=== PATIENT | male | born 1940 | race Caucasian/White ===

== ENCOUNTER 2018-03-25 19:20 | Inpatient (IN) ==
[2018-03-25] MEDS ORDERED: Morphine Inj 4 MG/ML Vial IV.PUSH ONE (20:42)
[2018-03-25] MEDS ORDERED: Sod Chloride 0.9% Inj 1,000 ML IV.SIG ONE (20:42)
--- NOTE | 2018-03-25 21:08 | XR ---
EXAM DATE: 03/25/2018 9:04 PM EST AGE/SEX: 77 years / Male INDICATIONS: Chest pain. CLINICAL DATA: This is the patient's initial encounter. Patient reports that signs and symptoms have been present for 1 day and indicates a pain score of 8/10. MEDICAL/SURGICAL HISTORY: None. CABG. COMPARISON: [facility] [place], CHEST SINGLE AP, 02/03/2015. . FINDINGS: Heart size appears mildly enlarged. Previous CABG. Mild basilar atelectasis. No significant effusion. No pneumothorax. CONCLUSION: Postop CABG. Mild basilar atelectasis. Electronically signed by: Marquise Zhang MD Board Certified Radiologist 03/25/2018 9:07 PM EST
--- NOTE | 2018-03-25 21:11 | ED ---
HPI General Chief complaint: Abdominal Pain Stated complaint: Abd Pain Time Seen by Provider: 03/25/18 20:18 History of Present Illness HPI narrative: Mr. Segura is a 77 year old male complaining of a right sided upper and lower abdominal pain that radiates to the right flank "all the way to my spine." The pain has been present for 2 weeks but escalated to a 9.5/10 on the pain scale earlier this evening which brought him to the ED. He describes the pain as a constant "horrendous ache" like he got "hit by a baseball bat". The patient is convinced that it is another episode of diverticulitis. His last episode was 9 months ago and he claims it was also right sided pain. He also complains of constipation [id number] which he took Senecot to tried to alleviate it but it did not help. It gave him a bout of diarrhea two days ago, and he had hard bunny ball stools today that were a very dark brown. He denies any alleviating for aggravating symptoms for the pain. He denies fevers, chills, or vomiting. He has had nausea but has only dry heaved a couple times in the ED. He also complains of burning while urinating for the past two months, sometimes in his rectum as well. He also lacks a steady urinary stream and has had some episodes of urinary incontinence. PMH: 2 Myocardial Infarctions Diverticulitis Bleeding Duodenal Ulcer Thalamic Stroke [place] HTN PSHx: Hernia repair, CABG Medications: Gabapentin: 100 MG BID, 200 MG HS Carbidopa Aspirin 81 MG once daily Allergies: check file Social Hx: 30 pack year history; currently smokes 4-6 cigarettes/day Denies alcohol use Denies recreational drug use Monika Chavez, MS3 Related Data Home Medications Medication Instructions Recorded Confirmed aspirin [Aspirin Low Dose] 81 mg PO DAILY 03/25/18 03/25/18 carbidopa 25 mg PO Q6H 03/25/18 03/25/18 gabapentin 100 mg PO BID 03/25/18 03/25/18 gabapentin 200 mg PO HS 03/25/18 03/25/18 Allergies Allergy/AdvReac Type Severity Reaction Status Date / Time banana Allergy Severe Swelling Verified 03/25/18 19:27 walnut Allergy Severe HIVES Verified 03/25/18 19:27 tizanidine Allergy Intermediate BAD Verified 03/25/18 19:27 REACTION lisinopril Allergy Unknown Dizziness Verified 03/25/18 19:27 losartan Allergy Unknown Dizziness Verified 03/25/18 19:27 simvastatin Allergy Unknown Dizziness Verified 03/25/18 19:27 codeine AdvReac Severe KNOCKS HIM Verified 03/25/18 19:27 OUT RED YEAST RICE Allergy Unknown Itching Uncoded 03/25/18 19:27 [facility] Medical History Medical History Bleeding ulcer (Acute) Diverticulitis (Acute) Myocardial infarction (Acute) Stroke (Acute) Surgical History Surgical History Hx of CABG (Acute) Hx of hernia repair (Acute) Social History Social History Substance History: No History of Abuse Smoking Status: Current every day smoker Tobacco Type: Cigarettes How Often Do You Have a Drink Containing Alcohol: Never Recent Travel in [facility] within the Last 8 Weeks: No Recent Out of Country Travel within the Last 8 Weeks: No Immunization History Tetanus Immunization: Unsure Exam HENMT Head: normocephalic and atraumatic Nose: no nasal discharge and no epistaxis Mouth: moist mucous membranes Eyes Sclera: normal sclerae Pupils: PERRL Neck Neck: trachea midline and no JVD Resp Effort & Inspection: no use of accessory muscles Auscultation: clear to auscultation bilaterally Cardio Rate: regular rate Rhythm: regular rhythm Heart Sounds: no murmurs GI Inspection: distended Palpation: soft, no hepatosplenomegaly, no guarding, not rigid and tender in the epigastrum, in the RLQ, in the RUQ and Luna's sign positive; not in the LLQ, not in the LUQ and not periumbilically Rectal Exam: visual inspection normal, heme negative stool, prostate abnormal ( Firm on palpation. No focal mass palpated.) enlarged and tender and tenderness (On palpation of her his prostate) Back/Spine/Pelvis Back: CVA tenderness (on the right) Skin General: dry skin (warm) Neuro General: alert and awake Cranial Nerves: other Speech: speech normal Motor: no movement abnormalities noted Extrem General: normal to inspection, no clubbing, no cyanosis and no edema Psych Mood: congruent mood Affect: normal affect Judgment: judgment good Course Initial Documented Vital Signs Temperature 98.0 F 03/25/18 19:27 Pulse Rate 75 03/25/18 19:27 Respiratory Rate 16 03/25/18 19:27 Blood Pressure 220/101 H 03/25/18 19:27 Pulse Oximetry 97 03/25/18 19:27 Last Documented Vital Signs Temperature 98.0 F 03/25/18 19:27 Pulse Rate 76 03/25/18 23:00 Respiratory Rate 16 03/25/18 23:00 Blood Pressure 207/100 H 03/25/18 23:00 Pulse Oximetry 97 03/25/18 23:00 Medical Decision Making MDM Narrative Medical decision making narrative: I, Dr. Petersen, have reviewed the medical student's documentation, and I am in agreement, met with the patient face to face, made the diagnosis, and the medical decision making was done by me. The patient was initially evaluated by MS Monika III. Please see their complete history and physical. *My assessment and Findings: The patient presents with a history of abdominal pain that he reports is been ongoing for the last 2 weeks, however much worse today. He reports having problems with intermittent constipation, however he did move his bowels today and small amount. He reports that his stool is hard and also darkening color. He reports that he does have a history of peptic ulcer disease many years ago with a GI bleed. The patient reports that the pain is in the right side of his abdomen, right upper and right lower quadrant. He reports the pain is similar to when he had diverticulitis in the past approximately 8-9 months ago. The patient on review of systems also reports having dysuria with urinary frequency and urgency with urge incontinence that is been ongoing and intermittent for the last month. The patient reports a prior history of elevated PSA in the 30s. The patient reports that he refused to have a biopsy. During the course of the patient's emergency department visit, the patient's history, examination, and differential diagnosis were reviewed with the patient. The patient was placed on a car mover with oximetry and frequent blood pressure monitoring. The patient had IV access obtained and blood work sent for analysis. The patient was initially provided normal saline 1 L IV fluid bolus, morphine 4 mg IV for pain, Zofran 4 mg IV for nausea. The patient continued to have severe pain and was given hydromorphone 0.5 mg IV. The patient's diagnostic studies were reviewed and remarkable for A chest x-ray shows postop CABG, mild basilar atelectasis, PT PTT within normal limits, chemistries remarkable for chloride of 112, BUN 41, creatinine 3.37 in a patient with a history of his last creatinine in 2014 being normal at 1.06, GFR of 18 T8, lipase within normal limits, lactic acid 0.8. CT scan of the abdomen and pelvis showed moderate hydronephrosis and hydroureter bilaterally, fluid adjacent to the right kidney and right ureter, diverticulosis without diverticulitis, mild circumferential wall thickening of the urinary bladder. Due to the patient's acute kidney injury and hydronephrosis, a Andrew catheter was replaced to gravity while IV fluids are administered to evaluate urine output. The patient's case including history, pertinent physical examination findings, and laboratory studies were discussed with Dr. Mooney. It was agreed that the patient would be admitted to the [facility] hospitalist service. The patient's results were discussed with the patient, including the plan of care. I explained that further testing and/ or monitoring is indicated based on the patient's history, examination, and/ or laboratory findings. Therefore, I recommended admission for additional evaluation and treatment under the care of the [facility] hospitalist service. Medical Screen Exam Complete: Yes Emergency Medical Condition: Yes Differential Diagnosis Differential Diagnosis: Cystitis, versus pyelonephritis, versus kidney stone, versus prostatitis, versus diverticulitis, versus appendicitis, versus acute cholecystitis Medical Records Medical records reviewed: Yes I reviewed the patient's medical records. Lab Data Lab results reviewed: Yes I reviewed the patient's lab results. Result diagrams: 03/25/18 22:48 03/25/18 20:30 Lab Results 03/25/18 03/25/18 03/25/18 Range/Units 20:30 20:30 20:30 PT 10.5 (9.8-11.6) sec INR 1.0 Ratio APTT 28.5 (23.4-31.7) sec Sodium 144 (136-145) meq/L Potassium 4.6 (3.5-5.1) meq/L Chloride 112 H (98-107) meq/L Carbon Dioxide 24.9 (21.0-32.0) meq/L Anion Gap 7 (5-15) meq/L BUN 41 H (7-18) mg/dL Creatinine 3.37 H (0.60-1.30) mg/dL Estimated GFR 18 L (>89) mL/min Random Glucose 95 (74-106) mg/dL Lactic Acid 0.8 (0.4-2.0) mmol/L Calcium 8.7 (8.5-10.1) mg/dL Magnesium 2.0 (1.5-2.5) mg/dL Total Bilirubin 0.4 (0.2-1.0) mg/dL AST 22 (15-37) U/L ALT 8 L (12-78) U/L Alkaline Phosphatase 83 (45-117) U/L Total Protein 8.0 (6.4-8.2) g/dL Albumin 4.0 (3.4-5.0) g/dL Lipase 131 (73-393) U/L Urine Color (Yellw/Straw) Urine Clarity (Clear) Urine pH (5.0-8.5) Ur Specific Loma (1.002-1.035) Urine Protein (Neg-Trace) mg/dL Urine Glucose (UA) (Negative) mg/dL Urine Ketones (Negative) mg/dL Urine Occult Blood (Negative) Urine Nitrate (Negative) Urine Bilirubin (Negative) Urine Urobilinogen (Less than 2) mg/dL Ur Leukocyte Esterase (Negative) Urine RBC (0-3) /hpf Urine WBC (0-5) /hpf Micro UA Comment Ur Microscopic Review Urine Culture Comments 03/25/18 Range/Units 21:00 PT (9.8-11.6) sec INR Ratio APTT (23.4-31.7) sec Sodium (136-145) meq/L Potassium (3.5-5.1) meq/L Chloride (98-107) meq/L Carbon Dioxide (21.0-32.0) meq/L Anion Gap (5-15) meq/L BUN (7-18) mg/dL Creatinine (0.60-1.30) mg/dL Estimated GFR (>89) mL/min Random Glucose (74-106) mg/dL Lactic Acid (0.4-2.0) mmol/L Calcium (8.5-10.1) mg/dL Magnesium (1.5-2.5) mg/dL Total Bilirubin (0.2-1.0) mg/dL AST (15-37) U/L ALT (12-78) U/L Alkaline Phosphatase (45-117) U/L Total Protein (6.4-8.2) g/dL Albumin (3.4-5.0) g/dL Lipase (73-393) U/L Urine Color Straw (Yellw/Straw) Urine Clarity Clear (Clear) Urine pH 6.0 (5.0-8.5) Ur Specific Loma 1.008 (1.002-1.035) Urine Protein Negative (Neg-Trace) mg/dL Urine Glucose (UA) Negative (Negative) mg/dL Urine Ketones Negative (Negative) mg/dL Urine Occult Blood Small H (Negative) Urine Nitrate Negative (Negative) Urine Bilirubin Negative (Negative) Urine Urobilinogen Less than 2 (Less than 2) mg/dL Ur Leukocyte Esterase Negative (Negative) Urine RBC Less than 1 (0-3) /hpf Urine WBC 1 (0-5) /hpf Micro UA Comment Culture not ind Ur Microscopic Review Not Reportable Urine Culture Comments Culture not ind Imaging Data Radiologist's impression: Abdomen/Pelvis CT 03/25/18 20:42 CONCLUSION: 1. Moderate hydronephrosis and hydroureter bilaterally. 2. There is fluid adjacent to the right kidney and right ureter. 3. Diverticulosis without diverticulitis. 4. Mild circumferential wall thickening urinary bladder. Chest X-Ray 03/25/18 20:42 CONCLUSION: Postop CABG. Mild basilar atelectasis. ECG Data Attestation: I personally reviewed and interpreted this ECG as follows: Interpretation: The patient had an EKG done on arrival. The patient's EKG reveals a sinus rhythm with occasional ectopic premature complexes, heart rate of 67, QRS duration is 93 ms, QTC [address] segment elevation, T waves are inverted in lead III. Discharge Plan Discharge Disposition Patient Disposition: ED Admit(ED Internal Use Only) Discharge Order Discharge Orders: ED Use Only Admit Order (Routine); Ordered 03/25/18 Ordered By: Isaura Peetrsen Discharge Details Diagnosis: Acute kidney injury, Bilateral hydronephrosis Physicians Team ED Provider: Isaura Petersen Primary Care Provider: UNKNOWN, Rxs /Orders / Referrals /Forms Prescriptions: No Action carbidopa 25 mg Tablet 25 mg PO Q6H RF: 0 gabapentin 100 mg Capsule 200 mg PO HS RF: 0 gabapentin 100 mg Capsule 100 mg PO BID RF: 0 aspirin [Aspirin Low Dose] 81 mg Tablet,Delayed Release (Dr/Ec) 81 mg PO DAILY RF: 0 Discharge Interventions Interventions: Vital Signs Last Done: 03/25/18 23:00 Status ED Status: With Doctor
[2018-03-25 21:33] LABS: Bilirubin,Urine Negative (Negative); Clarity,Urine Clear (Clear); Color,Urine Straw (Yellw/Straw); Glucose,Urine (UA) Negative (Negative); Leukocyte Esterase,Urine Negative (Negative); Nitrite,Urine Negative (Negative); Specific Gravity,Urine 1.008 (1.002-1.035)
[2018-03-25 21:36] LABS: Activated Partial Thrombo Time 28.5 sec (23.4-31.7); Prothrombin Time 10.5 sec (9.8-11.6)
[2018-03-25] MEDS ORDERED: HYDROmorphone PF Inj 0.5 MG/0.5 ML Syringe IV.PUSH ONE (21:42)
[2018-03-25 21:53] LABS: Alanine Aminotransferase 8 U/L (12-78)
[2018-03-25 21:56] LABS: Alkaline Phosphatase 83 U/L (45-117); Anion Gap 7 meq/L (5-15); Aspartate Aminotransferase 22 U/L (15-37); Blood Urea Nitrogen 41 mg/dL (7-18); Calcium 8.7 mg/dL (8.5-10.1); Carbon Dioxide 24.9 meq/L (21.0-32.0); Chloride 112 meq/L (98-107); Glomerular Filtration Rate 18 mL/min (>89); Glucose,Random 95 mg/dL (74-106); Lipase 131 U/L (73-393); Sodium 144 meq/L (136-145)
[2018-03-25 21:59] LABS: Potassium 4.6 meq/L (3.5-5.1)
--- NOTE | 2018-03-25 22:23 | CT ---
EXAM DATE: 03/25/2018 10:15 PM EST AGE/SEX: 77 years / Male INDICATIONS: Abdominal pain and back pain that has steadily gotten worse for 10 days. CLINICAL DATA: This is the patient's initial encounter. Patient reports that signs and symptoms have been present for 2 weeks and indicates a pain score of 9/10. MEDICAL/SURGICAL HISTORY: Diverticulitis. Cardiovascular disease. CABG. Hernia repair RADIATION DOSE: 6.64 CTDI (mGy) COMPARISON: [facility], CT ABDOMEN AND PELVIS W/ CONTRAST, 01/29/2017. . TECHNIQUE: Multiple contiguous axial images were obtained through the abdomen. Images were obtained using multiple row detector helical technique. Using automated exposure control and adjustment of the mA and/or kV according to patient size, radiation dose was kept as low as reasonably achievable to o btain optimal diagnostic quality images. DICOM format image data is available electronically for rev iew and comparison. FINDINGS: Lower Lungs: The visualized lower lungs are clear. Liver: The liver has a homogeneous density without space-occupying lesion. There is no dilation of th e biliary tree. Spleen: Homogeneous density without enlargement. Pancreas: Unremarkable without mass or calcification. Kidneys: Moderate bilateral hydronephrosis and hydroureter. Perinephric stranding bilaterally greate r on the right. There is fluid adjacent to the right kidney and right proximal ureter. Adrenal Glands: Unremarkable. Aorta: Atherosclerotic changes without aneurysmal dilation. Bowel/Mesentery: Extensive diverticulosis without diverticulitis. Abdominal Wall: Intact. Retroperitoneum: No evidence of adenopathy in the retrocrural, para-aortic, or deep pelvic regions. Bladder: Mild wall thickening of the urinary bladder. Reproductive Organs: No abnormal masses or calcifications seen. Mildly prominent prostate gland. Inguinal: The inguinal region is unremarkable without evidence of adenopathy. Bony Structures: Levoscoliosis and degenerative changes lumbar spine. CONCLUSION: 1. Moderate hydronephrosis and hydroureter bilaterally. 2. There is fluid adjacent to the right kidney and right ureter. 3. Diverticulosis without diverticulitis. 4. Mild circumferential wall thickening urinary bladder. Electronically signed by: Carlos Jay MD Board Certified Radiologist 03/25/2018 10:22 PM EST
[2018-03-25 23:13] LABS: Baso # (Auto) 0.1 th/mm3 (0.0-0.2); Baso % (Auto) 0.8 % (0.0-2.0); Eos % (Auto) 0.4 % (0.0-4.0); Hematocrit 36.3 % (39.0-51.0); Hemoglobin 12.4 gm/dL (13.0-17.0); Lymph # (Auto) 0.7 th/mm3 (1.0-4.8); Lymph % (Auto) 6.9 % (9.0-44.0); Mean Corpuscular Hemoglobin 33.2 pg (27.0-34.0); Mean Corpuscular Volume 97.5 fL (80.0-100.0); Mean Platelet Volume 8.5 fL (7.0-11.0); Mono # (Auto) 0.3 th/mm3 (0.0-0.9); Mono % (Auto) 3.5 % (0.0-8.0); Neut # (Auto) 8.4 th/mm3 (1.8-7.7); Neut % (Auto) 88.4 % (16.0-70.0); Red Blood Count 3.72 mil/mm3 (4.50-5.90); Red Cell Distribution Width 12.9 % (11.6-17.2)
[2018-03-25 23:41] LABS: Platelet Count 107 th/mm3 (150-450); White Blood Count 8.6 th/mm3 (4.0-11.0)
[2018-03-25 23:46] LABS: Acanthocytes Occ; Ovalocytes 1+
[2018-03-25 23:47] LABS: Platelet Morphology Clumped (Normal)
[2018-03-26] MEDS: Morphine Inj 4 MG/ML Vial IV.PUSH PRN ×2 (00:55→04:30)
[2018-03-26] MEDS: Sod Chloride 0.9% Inj 1,000 ML IV.CONT SCH ×6 (00:55→22:39)
--- NOTE | 2018-03-26 09:21 | P.HPIM ---
History of Present Illness Primary Care Physician: UNKNOWN History of Present Illness: Pt is 77 yo with hx cad/cabg x 4, hx right thalamic cva, duodenal ulcer, diverticulitis, who presented with right lower abdomen and flank pain with dysuria. Pt said he had less urine output and burning with urination x 2 weeks. Then progressed to right lower abdomen and right flank pain worsening yesterday. no vomiting or fever. No hx of uti or nephrolithiasis. Pt gives hx of elevated psa but details were limited. On outpt records we found a psa of 35 in August of 2013. His cr here was over 3 and previous in 02/02 was nml. He had bilateral hydro on CT and fluid adjacent to right kidney with perinephric stranding. Admitted for evaluation. No reported urine output with bhakta but pt c/o pain and it was removed. PMH: hx right thalamic cva with persistent mild weakness of LUE/LLE and use of cane for balance. cad. emergent 4v cabg divertiulosis and diverticulitis. peripheral neuroapathy. duodenal ulcer elevated psa hernia repair SH: hx tobacco use x 67 yrs. still smokes 6cigs/day. no etoh. [facility] Diagnosis (1) Acute kidney injury: (2) Bilateral hydronephrosis: Inpatient Certification Inpatient Certification: I certify that the inpatient services were ordered in accordance with Medicare regulations governing the order. This includes certification that hospital inpatient services are reasonable and necessary and in the case of services not specified as inpatient-only under 42 CFR 419.22(n), that they are appropriately provided as inpatient services in accordance to with the 2-midnight benchmark under 43 CFR 412.3(e) Medications and Allergies Allergies Allergy/AdvReac Type Severity Reaction Status Date / Time banana Allergy Severe Swelling Verified 03/25/18 19:27 walnut Allergy Severe HIVES Verified 03/25/18 19:27 tizanidine Allergy Intermediate BAD Verified 03/25/18 19:27 REACTION lisinopril Allergy Unknown Dizziness Verified 03/25/18 19:27 losartan Allergy Unknown Dizziness Verified 03/25/18 19:27 simvastatin Allergy Unknown Dizziness Verified 03/25/18 19:27 codeine AdvReac Severe KNOCKS HIM Verified 03/25/18 19:27 OUT RED YEAST RICE Allergy Unknown Itching Uncoded 03/25/18 19:27 Home Medications Medication Instructions Recorded Confirmed Type aspirin [Aspirin Low Dose] 81 mg PO DAILY 03/25/18 03/25/18 History carbidopa 25 mg PO Q6H 03/25/18 03/25/18 History gabapentin 100 mg PO BID 03/25/18 03/25/18 History gabapentin 200 mg PO HS 03/25/18 03/25/18 History Active Medications: Active Medications Hydrocodone Bitart/Acetaminophen (Gary 5/325) 2 tab PO Q6H PRN PRN Reason: PAIN SCALE 1 TO 5 Last Admin: 03/26/18 08:51 Dose: 2 tab Sodium Chloride (Ns Inj) 1,000 mls @ 100 mls/hr IV.CONT .Q10H [facility] Last Admin: 03/26/18 00:55 Dose: 100 mls/hr Sodium Chloride (Ns Inj) 1,000 mls @ 100 mls/hr IV.CONT .Q10H [facility] Last Admin: 03/26/18 01:04 Dose: Not Given Morphine Sulfate (Morphine Inj) 2 mg IV.PUSH Q4H PRN PRN Reason: PAIN SCALE 6 TO 10 Last Admin: 03/26/18 04:30 Dose: 2 mg Sodium Chloride (Ns Flush) 2 ml IV.FLUSH PRN PRN PRN Reason: FLUSH AFTER USING IV ACCESS Physical Exam Vital signs: Last Vital Signs Temp 98.6 F 03/26/18 04:00 Pulse 76 03/26/18 04:00 Resp 17 03/26/18 04:00 BP 172/87 H 03/26/18 04:00 Pulse Ox 93 L 03/26/18 04:00 Narrative: nad heart reg. systolic murmer LLSB lung cta abd right lower quad tenderness. bs. nd ext no edema Results Labs CBC & Chem 7: 03/25/18 22:48 03/25/18 20:30 Caprini VTE Risk Assessment Caprini VTE Risk Assessment: Moderate/High Risk (score >= 2) Caprini Risk Assessment Model: Point Value = 1 Point Value = 2 Point Value = 3 Point Value = 5 Age 41-60 Minor surgery BMI > 25 kg/m2 Swollen legs Varicose veins or History of unexplained or recurrent spontaneous Oral contraceptives or hormone replacement Sepsis (< 1 month) Serious lung disease, including pneumonia (< 1 month) Abnormal pulmonary function Acute myocardial infarction Congestive heart failure (< 1 month) History of inflammatory bowel disease Medical patient at bed rest Age 61-74 Arthroscopic surgery Major open surgery (> 45 min) Laparoscopic surgery (> 45 min) Malignancy Confined to bed (> 72 hours) Immobilizing plaster cast Central venous access Age >= 75 History of VTE Family history of VTE Factor V Leiden Prothrombin [id number] Lupus anticoagulant Anticardiolipin antibodies Elevated serum homocysteine Heparin-induced thrombocytopenia Other congenital or acquired thrombophilia Stroke (< 1 month) Elective arthroplasty Hip, pelvis, or leg fracture Acute spinal cord injury (< 1 month) Prophylaxis Regimen: Total Risk Factor Score Risk Level Prophylaxis Regimen 0-1 Low Early ambulation 2 Moderate Order ONE of the following: *Sequential Compression Device (SCD) *Heparin 5000 units SQ BID 3-4 Higher Order ONE of the following medications: *Heparin 5000 units SQ TID *Enoxaparin/Lovenox 40 mg SQ daily (WT < 150 kg, CrCl > 30 mL/min) *Enoxaparin/Lovenox 30 mg SQ daily (WT < 150 kg, CrCl > 10-29 mL/min) *Enoxaparin/Lovenox 30 mg SQ BID (WT < 150 kg, CrCl > 30 mL/min) AND/OR *Sequential Compression Device (SCD) 5 or more Highest Order ONE of the following medications: *Heparin 5000 units SQ TID (Preferred with Epidurals) *Enoxaparin/Lovenox 40 mg SQ daily (WT < 150 kg, CrCl > 30 mL/min) *Enoxaparin/Lovenox 30 mg SQ daily (WT < 150 kg, CrCl > 10-29 mL/min) *Enoxaparin/Lovenox 30 mg SQ BID (WT < 150 kg, CrCl > 30 mL/min) AND *Sequential Compression Device (SCD) Assessment and Plan Assessment (1) Acute kidney injury: Code(s): N17.9 - Acute kidney failure, unspecified Status: Acute (2) Bilateral hydronephrosis: Code(s): N13.30 - Unspecified hydronephrosis Status: Acute Plan 1. DAINA with bilateral hydro and severe right abdomen and flank pain. concern for perinephric stranding and fluid collection adjacent to right kidney. Seen by urology and prostate is "rock hard". Concern for prostate ca and likely some obstruction. 2. 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 cad. cabg x 4 4. hx duoadenal ulcer and diverticulosis resume home meds. prn pain control IVF dvt prophylaxis discussed with Dr Griffith. He will place a bhakta. monitor urine output and cr/gfr. pt getting ivf. check psa H&P: Quality VTE Deep Vein Thrombosis/Pulmonary Embolism Present on Admission: No
[2018-03-26] MEDS ORDERED: Lidocaine 2% Jelly 5 ML Syringe OTHER ONE (09:30)
--- NOTE | 2018-03-26 10:00 | MB ---
cc: NachoLoco Kebede DO DATE: 03/26/2018 HISTORY OF PRESENT ILLNESS: Mr. Segura is a pleasant 77-year-old male who presented with abdominal pain yesterday and has had difficulty urinating over the last few weeks. He denies any nausea or vomiting, and he reports no fevers. The patient does admit to having an elevated PSA of 35 back in 2013, under the care of Dr. Byers. At that time, he refused a biopsy. He presently denies any bone pain and has not had a prostate biopsy in the past. Initially, a Andrew catheter was put in, but it was not draining and then was taken out. I was able to place a 16-Azerbaijani coude at the bedside with clear urine draining at the present time. His CT scan performed on admission did show evidence of bilateral hydroureteronephrosis with some perinephric stranding around the right kidney and a full bladder with a thickened bladder wall. For allergies and medications Please refer to the chart. PAST MEDICAL HISTORY: Includes right thalamic CVA, coronary artery disease, diverticulitis, peripheral neuropathy, duodenal ulcer, hiatal hernia, and elevated PSA. PAST SURGICAL HISTORY: Hernia repair in the past, CABG x 4. SOCIAL HISTORY: Presently a smoker of 6 cigarettes a day. Denies alcohol or drug use. FAMILY HISTORY: No family history of prostate cancer was noted. REVIEW OF SYSTEMS: No abdominal pain, dysuria. Difficulty with urination, nocturia 3-4 times. Denies chest pain, shortness of breath. Denies diarrhea or constipation. Denies bleeding disorders, psychiatric problems. Remaining review of systems reviewed and were negative. PHYSICAL EXAMINATION: VITAL SIGNS: Today, temperature 99.2, heart rate 66, respiratory rate 20, 137/79 is his blood pressure, 93% on room air. GENERAL: He is a thin 77-year-old male in no acute distress. HEENT: Normocephalic, atraumatic. Pupils equal, round, regular, and reactive to light. Extraocular movements intact. NECK: Supple. HEART: Regular rate and rhythm. LUNGS: Clear. ABDOMEN: Soft. There is some right-sided abdominal tenderness. No rebound. Some guarding is noted. GENITOURINARY: Normal phallus. Testes are descended. Prostate is rock hard, approximately 60 g, nodular. EXTREMITIES: Show no cyanosis, clubbing, or edema. NEUROLOGIC: Cranial nerves 2 through 12 are intact. DIAGNOSTIC DATA: White count 8.6, hemoglobin 12.4, hematocrit 36.3, platelet count of 107. Sodium 144, potassium 4.6, chloride 112, CO2 is 24.9, BUN of 41, creatinine 3.37, glucose of 95. PT is 10.5. INR 1.0, PTT is 28.5. Urinalysis shows small occult blood, nitrites negative, leukocyte esterase is negative, 1 white cell. Again, imaging studies, bilateral hydronephrosis with right-sided perinephric stranding is noted. ASSESSMENT AND PLAN: 1. A 77-year-old male with history of an elevated PSA and rock hard prostate on exam with bilateral hydronephrosis and right-sided perinephric stranding. The patient probably has prostate cancer and at some point in the future will need a prostate needle biopsy. 2. Acute renal failure. Maintain Andrew catheter for now and monitor urine output. Avoid nephrotoxins. Check PSA. We will follow with you. Thank you for the consult. DO CHRISTIE Haywood/juan luis , 09:38 AM , 09:47 AM
--- NOTE | 2018-03-26 15:42 | ECG ---
Date Performed: 03/25/2018 Time Performed: 23:01:20 PTAGE: 77 years EKG: Sinus rhythm WITH OCCASIONAL ECTOPIC PREMATURE COMPLEXES POSSIBLE LEFT ATRIAL ENLARGEMENT INFERIOR MYOCARDIAL INF ARCTION Compared to previous tracing, there are now occasional PVCs present. Prior inferior KS is not ed ABNORMAL ECG PREVIOUS TRACING : 02/03/2015 19.52 DOCTOR: Minerva Hunt Interpretating Date/Time 03/26/2018 15:41:06
[2018-03-26] MEDS: Gabapentin 100 MG Capsule PO SCH ×2 (16:03→22:38)
[2018-03-27] MEDS: Sod Chloride 0.9% Inj 1,000 ML IV.CONT SCH ×3 (05:27→10:01)
[2018-03-27 05:37] LABS: Free PSA/PSA Ratio 0 ratio
[2018-03-27] MEDS: Gabapentin 100 MG Capsule PO SCH ×2 (07:30→20:48)
[2018-03-27 08:49] LABS: Calcium 8.1 mg/dL (8.5-10.1); Carbon Dioxide 18.2 meq/L (21.0-32.0); Potassium 5.3 meq/L (3.5-5.1)
--- NOTE | 2018-03-27 08:59 | P.PNIM ---
Subjective Interval history: pt w/out pain today. Physical Exam Vital signs: Last Vital Signs Temp 98.2 F 03/27/18 08:00 Pulse 84 03/27/18 08:00 Resp 18 03/27/18 08:00 BP 169/83 H 03/27/18 08:00 Pulse Ox 90 L 03/27/18 08:00 Narrative: nad heart reg. systolic murmer LLSB lung cta abd right lower quad tenderness better.. bs. nd ext no edema Results Labs CBC & Chem 7: 03/25/18 22:48 03/27/18 08:03 Assessment and Plan Assessment (1) Acute kidney injury: Code(s): N17.9 - Acute kidney failure, unspecified Status: Acute (2) Bilateral hydronephrosis: Code(s): N13.30 - Unspecified hydronephrosis Status: Acute Plan 1. DAINA with bilateral hydro and severe right abdomen and flank pain. concern for perinephric stranding and fluid collection adjacent to right kidney. Seen by urology and prostate is "rock hard". Concern for prostate ca and likely some obstruction. psa 159 only 100cc urine overnight after bhakta placed worsening renal function overnight and cr over 6 2. 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 cad. cabg x 4 4. hx duoadenal ulcer and diverticulosis resume home meds. prn pain control IVF dvt prophylaxis discussed with Dr Griffith. He is checking bhakta to assure not obstructed...If daina not felt to be from obstruction then I will consult nephrology. Progress Note: Quality VTE Deep Vein Thrombosis/Pulmonary Embolism Present on Admission: No
[2018-03-27] MEDS ORDERED: Sod Chloride 0.9% Inj 1,000 ML OTHER PRN ×2 (10:21)
[2018-03-27] MEDS ORDERED: Sod Chloride 0.9% Inj 1,000 ML IV.CONT PRN (10:21)
[2018-03-27] MEDS ORDERED: Acetaminophen 325 MG Tablet PO PRN (10:21)
[2018-03-27] MEDS ORDERED: Heparin 10,000 UNITS/10 ML Vial (for IV use) OTHER PRN (10:21)
[2018-03-27] MEDS ORDERED: Albumin Human 25% Inj 100 ML IV.SIG PRN (10:21)
[2018-03-27] MEDS ORDERED: Gelatin 12 MM/7 MM Topical Foam TOPICAL PRN (10:21)
--- NOTE | 2018-03-27 10:22 | P.PNURO ---
Subjective Patient symptoms today: Pt seen and examined. Minimal u/o last night. Creatinine up to 6.7. Objective Vital Signs: Vital Signs 03/26/18 11:45 03/26/18 12:03 03/26/18 16:15 Temperature 98.2 F 99.1 F Pulse Rate 79 71 Respiratory Rate 20 18 20 Blood Pressure 160/77 H 179/93 H Pulse Oximetry 91 L 91 L 03/26/18 18:36 03/26/18 20:00 03/27/18 00:00 Temperature 97.9 F 97.5 F L Pulse Rate 66 84 Respiratory Rate 18 18 16 Blood Pressure 160/72 H 149/78 H Pulse Oximetry 96 95 03/27/18 04:00 03/27/18 08:00 Temperature 97.9 F 98.2 F Pulse Rate 74 84 Respiratory Rate 18 18 Blood Pressure 172/81 H 169/83 H Pulse Oximetry 93 L 90 L Intake & Output 03/26/18 03/27/18 03/27/18 18:59 06:59 18:59 Intake Total 1000 / 1000 1000 / 1000 1000 / 1000 Output Total 50 / 50 100 / 100 Balance 950 / 950 900 / 900 1000 / 1000 Weight 50.9 kg Intake: IV 1000 / 1000 1000 / 1000 1000 / 1000 NS Inj 1,000 ML @ 100 mls/hr IV 1000 / 1000 1000 / 1000 1000 / 1000 .CONT .Q10H [facility] Rx#:[id number] Output: Urine 100 / 100 Urine Amount (Catheter) 50 / 50 Indwelling Urethral Catheter 50 / 50 Other: Date of Last Bowel Movement 03/25/18 Result Diagrams: 03/25/18 22:48 03/27/18 08:03 Medications and IVs: Active Medications Generic Name Dose Route Start Last Admin Trade Name Freq PRN Reason Stop Dose Admin Hydrocodone Bitart/Acetaminophen 2 tab 03/25/18 23:54 03/27/18 09:00 [place] 5/325 PO 2 tab Q6H PRN Administration PAIN SCALE 1 TO 5 Aspirin 81 mg 03/27/18 09:00 03/27/18 09:00 Aspirin Chew PO 81 mg DAILY [facility] Administration Carbidopa/Levodopa 1 tab 03/26/18 13:00 03/27/18 08:00 Sinemet 25/100 Mg PO 1 tab 08,13,21 [facility] Administration Clonidine HCl 0.1 mg 03/26/18 21:37 03/27/18 06:36 Catapres PO 0.1 mg Q6H PRN Administration SBP>160 OR DBP>90 Gabapentin 100 mg 03/26/18 13:00 03/27/18 07:30 Neurontin PO 100 mg BID@08,13 [facility] Administration Gabapentin 200 mg 03/26/18 21:00 03/26/18 22:38 Neurontin PO 200 mg HS [facility] Administration Sodium Bicarbonate 75 meq/ 1,075 mls @ 42 mls/hr 03/27/18 10:15 Dextrose/Sodium Chloride IV.CONT .Q24H [facility] Morphine Sulfate 2 mg 03/25/18 23:54 03/26/18 04:30 Morphine Inj IV.PUSH 2 mg Q4H PRN Administration PAIN SCALE 6 TO 10 Sodium Chloride 2 ml 03/25/18 20:42 Ns Flush IV.FLUSH PRN PRN FLUSH AFTER USING IV ACCESS Objective Remarks: Abd:soft,nt,nd Bladder not distended Assessment and Plan - Plan 77 y.o male admitted with abdominal pain; ARF and elevated PSA Maintain bhakta drainage for now CT scan later today Nephrology consulted.
--- NOTE | 2018-03-27 10:46 | P.CONNP ---
<Rena Riggs - Last Filed: 03/27/18 16:36> History of Present Illness Primary Care Provider: UNKNOWN History of Present Illness: Patient is 77 year old male who presented to the ED on 03/25/18 with right flank pain that radiated to the back and dysuria with a decrease in urine output over the past few weeks. Patient has medical history of MT, CVA w/left sided weakness, CABG, duodenal ulcer, diverticulitis. CT scan of abdomen 03/25 showed bilateral hydronephrosis and hydroureter. Patient had bhakta placed with little to no urine output. 225 ml urine was documented 03/26 , Creatinine was 3.37 on admission and now 6.77. PSA elevated at 159. Patient reports intense pain on abdominal palpation. Patient is a current tobacco smoker, denies drug and alcohol use. Review of Systems All other systems reviewed negative except as stated in HPI PMFSH - History History Provided By: Patient, Family Member - Medical History Medical History: Medical History (Last Reviewed 03/27/18 @ 08:10 by Declan Gomez) Bleeding ulcer Diverticulitis Myocardial infarction Stroke - Surgical History Surgical History: Surgical History (Last Reviewed 03/27/18 @ 08:10 by Declan Gomez) Hx of CABG Hx of hernia repair - Tobacco History Second Hand Smoke Exposure: Yes Tobacco Use In Past 30 Days: Yes Smoking Status: Current every day smoker Tobacco Type: Cigarettes - Alcohol History How Often Do You Have a Drink Containing Alcohol: Never - Substance Use History Substance History: No History of Abuse - Travel History Recent Travel in the [place] Within the Last 8 Weeks: No Recent Travel Out of the Country Within the Last 8 Weeks: No - Immunization History Tetanus Immunization: Unsure Medications and Allergies Allergies Allergy/AdvReac Type Severity Reaction Status Date / Time banana Allergy Severe Swelling Verified 03/25/18 19:27 walnut Allergy Severe HIVES Verified 03/25/18 19:27 tizanidine Allergy Intermediate BAD Verified 03/25/18 19:27 REACTION lisinopril Allergy Unknown Dizziness Verified 03/25/18 19:27 losartan Allergy Unknown Dizziness Verified 03/25/18 19:27 simvastatin Allergy Unknown Dizziness Verified 03/25/18 19:27 codeine AdvReac Severe KNOCKS HIM Verified 03/25/18 19:27 OUT RED YEAST RICE Allergy Unknown Itching Uncoded 03/25/18 19:27 Home Medications Medication Instructions Recorded Confirmed Type aspirin [Aspirin Low Dose] 81 mg PO DAILY 03/25/18 03/25/18 History carbidopa 25 mg PO Q6H 03/25/18 03/25/18 History gabapentin 100 mg PO BID 03/25/18 03/25/18 History gabapentin 200 mg PO HS 03/25/18 03/25/18 History Active Medications: Active Medications Acetaminophen (Tylenol) 650 mg PO UNSCH PRN PRN Reason: SEE LABEL COMMENTS Hydrocodone Bitart/Acetaminophen ([place] 5/325) 2 tab PO Q6H PRN PRN Reason: PAIN SCALE 1 TO 5 Last Admin: 03/27/18 09:00 Dose: 2 tab Aspirin (Aspirin Chew) 81 mg PO DAILY [facility] Last Admin: 03/27/18 09:00 Dose: 81 mg Carbidopa/Levodopa (Sinemet 25/100 Mg) 1 tab PO 08,, [facility] Last Admin: 03/27/18 08:00 Dose: 1 tab Clonidine HCl (Catapres) 0.1 mg PO Q6H PRN PRN Reason: SBP>160 OR DBP>90 Last Admin: 03/27/18 06:36 Dose: 0.1 mg Clonidine HCl (Catapres) 0.1 mg PO UNSCH PRN PRN Reason: SEE LABEL COMMENTS Diphenhydramine HCl (Benadryl) 25 mg PO UNSCH PRN PRN Reason: SEE LABEL COMMENTS Gabapentin (Neurontin) 100 mg PO BID@08,13 [facility] Last Admin: 03/27/18 07:30 Dose: 100 mg Gabapentin (Neurontin) 200 mg PO [facility] Last Admin: 03/26/18 22:38 Dose: 200 mg Gelatin (Gelfoam 12 Mm/7 Mm Topical) 1 foam TOPICAL PRN PRN PRN Reason: help stop bleeding from site Gentamicin Sulfate (Gentamicin Inj) 20 mg OTHER WITH DIALYSIS PRN PRN Reason: Dwell Gentamycin Lock Heparin Sodium (Porcine) (Heparin Inj) 1,000 units OTHER WITH DIALYSIS PRN PRN Reason: Dwell Heparin to Fill Catheter Heparin Sodium (Porcine) (Heparin Inj) 8,000 units OTHER WITH DIALYSIS PRN PRN Reason: for machine prime Sodium Bicarbonate 75 meq/ (Dextrose/Sodium Chloride) 1,075 mls @ 42 mls/hr IV.CONT .Q24H [facility] Albumin Human (Flexbumin 25% Inj) 100 mls @ 60 mls/hr IV.SIG WITH DIALYSIS PRN PRN Reason: hypotension / volume replace Sodium Chloride (Ns Inj) 1,000 mls @ 0 mls/hr OTHER .Q0M PRN PRN Reason: for prime and rinse back Sodium Chloride (Ns Inj) 1,000 mls @ 200 mls/hr OTHER .Q5H PRN PRN Reason: for dialyzer flush PRN Sodium Chloride (Ns Inj) 1,000 mls @ 0 mls/hr IV.CONT .Q0M PRN PRN Reason: hypotension / volume replace Mannitol (Mannitol Inj) 12.5 gm IV.PUSH UNSCH PRN PRN Reason: hypotension / volume replace Morphine Sulfate (Morphine Inj) 2 mg IV.PUSH Q4H PRN PRN Reason: PAIN SCALE 6 TO 10 Last Admin: 03/26/18 04:30 Dose: 2 mg Nitroglycerin (Nitrostat Sl) 0.4 mg SL Q5M PRN PRN Reason: CHEST PAIN Ondansetron HCl (Zofran Inj) 4 mg IV.PUSH UNSCH PRN PRN Reason: NAUSEA OR VOMITING Sodium Chloride (Ns Flush) 2 ml IV.FLUSH PRN PRN PRN Reason: FLUSH AFTER USING IV ACCESS Sodium Chloride (Ns Flush) 5 ml IV.FLUSH PRN PRN PRN Reason: flush each lumen during HD Exam Vital signs: Vital Signs 03/26/18 11:45 03/26/18 12:03 03/26/18 16:15 Temperature 98.2 F 99.1 F Pulse Rate 79 71 Respiratory Rate 20 18 20 Blood Pressure 160/77 H 179/93 H Pulse Oximetry 91 L 91 L 03/26/18 18:36 03/26/18 20:00 03/27/18 00:00 Temperature 97.9 F 97.5 F L Pulse Rate 66 84 Respiratory Rate 18 18 16 Blood Pressure 160/72 H 149/78 H Pulse Oximetry 96 95 03/27/18 04:00 03/27/18 08:00 Temperature 97.9 F 98.2 F Pulse Rate 74 84 Respiratory Rate 18 18 Blood Pressure 172/81 H 169/83 H Pulse Oximetry 93 L 90 L Intake & Output 03/26/18 03/27/18 03/27/18 18:59 06:59 18:59 Intake Total 1000 / 1000 1000 / 1000 1000 / 1000 Output Total 50 / 50 100 / 100 Balance 950 / 950 900 / 900 1000 / 1000 Weight 50.9 kg Intake: IV 1000 / 1000 1000 / 1000 1000 / 1000 NS Inj 1,000 ML @ 100 mls/hr IV 1000 / 1000 1000 / 1000 1000 / 1000 .CONT .Q10H [facility] Rx#:[id number] Output: Urine 100 / 100 Urine Amount (Catheter) 50 / 50 Indwelling Urethral Catheter 50 / 50 Other: Date of Last Bowel Movement 03/25/18 - Constitutional moderate distress Comments: Patient moaning due to abdominal pain - Routine HEENT Exam Head: Present: normocephalic ENT: Present: mucous membranes moist - Routine Neck Exam Absent: JVD, trachea midline - Routine Respiratory Exam Absent: accessory muscle use, respiratory distress - Routine Cardiovascular Exam Present: RRR - Routine Abdominal Exam Present: tenderness - Routine Extremities Exam Absent: edema - Routine Neurological Exam Present: alert Results - Lab Results 03/27/18 10:15 03/27/18 08:03 Most recent lab results Calcium 8.1 mg/dL (8.5-10.1) L 03/27/18 08:03 Magnesium 2.0 mg/dL (1.5-2.5) 03/25/18 20:30 Assessment and Plan - Assessment (1) Acute kidney injury Code(s): N17.9 - Acute kidney failure, unspecified Status: Acute Plan: DAINA could be due to obstruction. Patient made only 225 ml urine since bhakta placed 03/25/28. Ordered STAT CT scan of abdomen w/o contrast. Creatinine went from 3.37 to 6.77. Patient to receive dialysis today. Consult placed to IR for VasCath placement. Dialysis orders put in. Patient has mild hyperkalemia, K is 5.3, should improve with dialysis. Discussed the need for dialysis with , she agreed. Monitor for any urine output. Monitor fluid and electrolytes. Avoid nephrotoxic agents. (2) Bilateral hydronephrosis Code(s): N13.30 - Unspecified hydronephrosis Status: Acute Plan: Urology consulted, per note review, concern for prostate cancer. PSA elevated. <Goyo Haro - Last Filed: 03/27/18 18:19> History of Present Illness Primary Care Provider: UNKNOWN [facility] - Medical History Medical History: Medical History (Last Reviewed 03/27/18 @ 08:10 by Declan Gomez) Bleeding ulcer Diverticulitis Myocardial infarction Stroke - Surgical History Surgical History: Surgical History (Last Reviewed 03/27/18 @ 08:10 by Declan Gomez) Hx of CABG Hx of hernia repair Medications and Allergies Active Medications: Active Medications Acetaminophen (Tylenol) 650 mg PO UNSCH PRN PRN Reason: SEE LABEL COMMENTS Hydrocodone Bitart/Acetaminophen ([place] 5/325) 2 tab PO Q6H PRN PRN Reason: PAIN SCALE 1 TO 5 Last Admin: 03/27/18 09:00 Dose: 2 tab Aspirin (Aspirin Chew) 81 mg PO DAILY [facility] Last Admin: 03/27/18 09:00 Dose: 81 mg Carbidopa/Levodopa (Sinemet 25/100 Mg) 1 tab PO ,, [facility] Last Admin: 03/27/18 08:00 Dose: 1 tab Clonidine HCl (Catapres) 0.1 mg PO Q6H PRN PRN Reason: SBP>160 OR DBP>90 Last Admin: 03/27/18 06:36 Dose: 0.1 mg Clonidine HCl (Catapres) 0.1 mg PO UNSCH PRN PRN Reason: SEE LABEL COMMENTS Diphenhydramine HCl (Benadryl) 25 mg PO UNSCH PRN PRN Reason: SEE LABEL COMMENTS Gabapentin (Neurontin) 100 mg PO BID@, [facility] Last Admin: 03/27/18 07:30 Dose: 100 mg Gabapentin (Neurontin) 200 mg PO HS [facility] Last Admin: 03/26/18 22:38 Dose: 200 mg Gelatin (Gelfoam 12 Mm/7 Mm Topical) 1 foam TOPICAL PRN PRN PRN Reason: help stop bleeding from site Gentamicin Sulfate (Gentamicin Inj) 20 mg OTHER WITH DIALYSIS PRN PRN Reason: Dwell Gentamycin Lock Last Admin: 03/27/18 15:50 Dose: 20 mg Haloperidol Lactate (Haldol Inj) 2.5 mg IV.PUSH Q4HR PRN PRN Reason: AGITATION Heparin Sodium (Porcine) (Heparin Inj) 1,000 units OTHER WITH DIALYSIS PRN PRN Reason: Dwell Heparin to Fill Catheter Last Admin: 03/27/18 15:50 Dose: 1,000 units Heparin Sodium (Porcine) (Heparin Inj) 8,000 units OTHER WITH DIALYSIS PRN PRN Reason: for machine prime Heparin Sodium (Porcine) (Heparin Central Flush) 0 unit IV.FLUSH DAILY PRN PRN Reason: SEE DOSE INSTRUCTIONS Sodium Bicarbonate 75 meq/ (Dextrose/Sodium Chloride) 1,075 mls @ 42 mls/hr IV.CONT .Q24H [facility] Albumin Human (Flexbumin 25% Inj) 100 mls @ 60 mls/hr IV.SIG WITH DIALYSIS PRN PRN Reason: hypotension / volume replace Sodium Chloride (Ns Inj) 1,000 mls @ 0 mls/hr OTHER .Q0M PRN PRN Reason: for prime and rinse back Sodium Chloride (Ns Inj) 1,000 mls @ 200 mls/hr OTHER .Q5H PRN PRN Reason: for dialyzer flush PRN Sodium Chloride (Ns Inj) 1,000 mls @ 0 mls/hr IV.CONT .Q0M PRN PRN Reason: hypotension / volume replace Mannitol (Mannitol Inj) 12.5 gm IV.PUSH UNSCH PRN PRN Reason: hypotension / volume replace Morphine Sulfate (Morphine Inj) 2 mg IV.PUSH Q4H PRN PRN Reason: PAIN SCALE 6 TO 10 Last Admin: 03/26/18 04:30 Dose: 2 mg Nitroglycerin (Nitrostat Sl) 0.4 mg SL Q5M PRN PRN Reason: CHEST PAIN Ondansetron HCl (Zofran Inj) 4 mg IV.PUSH UNSCH PRN PRN Reason: NAUSEA OR VOMITING Sodium Chloride (Ns Flush) 2 ml IV.FLUSH PRN PRN PRN Reason: FLUSH AFTER USING IV ACCESS Sodium Chloride (Ns Flush) 5 ml IV.FLUSH PRN PRN PRN Reason: flush each lumen during HD Sodium Chloride (Ns Flush) 0 ml IV.FLUSH PRN PRN PRN Reason: SEE DOSE INSTRUCTIONS Exam Vital signs: Vital Signs 03/26/18 18:36 03/26/18 20:00 03/27/18 00:00 Temperature 97.9 F 97.5 F L Pulse Rate 66 84 Respiratory Rate 18 18 16 Blood Pressure 160/72 H 149/78 H Pulse Oximetry 96 95 03/27/18 04:00 03/27/18 08:00 Temperature 97.9 F 98.2 F Pulse Rate 74 84 Respiratory Rate 18 18 Blood Pressure 172/81 H 169/83 H Pulse Oximetry 93 L 90 L Intake & Output 03/26/18 03/27/18 03/27/18 18:59 06:59 18:59 Intake Total 1000 / 1000 1000 / 1000 1000 / 1000 Output Total 50 / 50 100 / 100 1200 / 1200 Balance 950 / 950 900 / 900 -200 / -200 Weight 50.9 kg Intake: IV 1000 / 1000 1000 / 1000 1000 / 1000 NS Inj 1,000 ML @ 100 mls/hr IV 1000 / 1000 1000 / 1000 1000 / 1000 .CONT .Q10H [facility] Rx#:[id number] Oral 0 / 0 Output: Urine 100 / 100 Hemodialysis Amount 1200 / 1200 Urine Amount (Catheter) 50 / 50 Indwelling Urethral Catheter 50 / 50 Other: Date of Last Bowel Movement 03/25/18 03/25/18 # Bowel Movements 0 Results - Lab Results 03/27/18 10:15 03/27/18 08:03 Most recent lab results Calcium 8.1 mg/dL (8.5-10.1) L 03/27/18 08:03 Magnesium 2.0 mg/dL (1.5-2.5) 03/25/18 20:30 Assessment and Plan - Assessment (1) Acute kidney injury Code(s): N17.9 - Acute kidney failure, unspecified Status: Acute (2) Bilateral hydronephrosis Code(s): N13.30 - Unspecified hydronephrosis Status: Acute - Attending Attestation patient was seen and examined. Agree with above assessment and plan. Patient underwent emergent dialysis as his renal function worsened and he is oliguric. Repeat CT reveals continued presence of hydronephrosis. It is unclear if he needs percutaneous nephrostomy. Urology following. Patient became extremely agitated and disoriented and confused after dialysis.
[2018-03-27 11:09] LABS: Baso % (Auto) 0.5 % (0.0-2.0); Eos % (Auto) 0.4 % (0.0-4.0); Hematocrit 37.4 % (39.0-51.0); Hemoglobin 12.8 gm/dL (13.0-17.0); Lymph # (Auto) 0.7 th/mm3 (1.0-4.8); Lymph % (Auto) 6.6 % (9.0-44.0); Mean Corpuscular HGB Conc 34.1 % (32.0-36.0); Mean Corpuscular Hemoglobin 33.1 pg (27.0-34.0); Mean Corpuscular Volume 96.9 fL (80.0-100.0); Mean Platelet Volume 10.2 fL (7.0-11.0); Mono # (Auto) 0.4 th/mm3 (0.0-0.9); Mono % (Auto) 4.3 % (0.0-8.0); Neut # (Auto) 8.9 th/mm3 (1.8-7.7); Neut % (Auto) 88.2 % (16.0-70.0); Red Blood Count 3.86 mil/mm3 (4.50-5.90); Red Cell Distribution Width 13.1 % (11.6-17.2)
[2018-03-27 11:27] LABS: Platelet Count 116 th/mm3 (150-450); White Blood Count 10.6 th/mm3 (4.0-11.0)
[2018-03-27] MEDS ORDERED: *Heparin 10,000 UNITS/10 ML Vial Periprocedural ONLY ONE (11:28)
[2018-03-27] MEDS ORDERED: Heparin Central Flush 100 UNIT/ML 5 ML Vial IV.FLUSH PRN (12:17)
--- NOTE | 2018-03-27 12:19 | P.RAD ---
Post Procedure Progress Note - Pre Procedure Diagnosis (1) Acute kidney injury - Post Procedure Diagnosis (1) Acute kidney injury - Procedure Information Procedure Date: 03/27/18 Supervising Radiologist: Nacho Moreno Jr, MD Proceduralist/Assist: Pam Erickson Estimated blood loss (mL): 0 Anesthesia: Local - Plan of Activity Patient to Unit: Nursing Unit Patient Condition: Good See PACS Report for procedural detail/treatment. CVAD Radiology Procedures left Internal Jugular Hemodialysis Catheter Non-Tunneled Placement Device: dual lumen Tajik: 15 - Additional Detail Findings: Placed LIJ vascath. In good position and functions well. OK to use. Plan: To nursing unit. OK to use catheter.
--- NOTE | 2018-03-27 13:17 | CT ---
EXAM DATE: 03/27/2018 1:04 PM EST AGE/SEX: 77 years / Male INDICATIONS: Abdominal pain. CLINICAL DATA: This is the patient's initial encounter. Patient reports that signs and symptoms have been present for 1 day and indicates a pain score of 3/10. MEDICAL/SURGICAL HISTORY: Diverticulitis. Stroke. Cardiovascular disease. CABG. RADIATION DOSE: 12.23 CTDI (mGy) COMPARISON: [facility] [place] & [place]ELVIS W/O CONTRAST, 03/25/2018. . TECHNIQUE: Multiple contiguous axial images were obtained through the abdomen. Images were obtained using multiple row detector helical technique. Using automated exposure control and adjustment of the mA and/or kV according to patient size, radiation dose was kept as low as reasonably achievable to o btain optimal diagnostic quality images. DICOM format image data is available electronically for rev iew and comparison. FINDINGS: Lower Lungs: There are new small bilateral pleural effusions now noted with areas of consolidation in the posterior lung bases right greater than left. The heart size remains prominent. Liver: The liver has a homogeneous density without space-occupying lesion. There is no dilation of th e biliary tree. Ascitic fluid is now noted along the anterior liver margin. Spleen: Homogeneous density without enlargement. Pancreas: Unremarkable without mass or calcification. Kidneys: These remains stable in appearance with dilatation of the collecting systems and central re nal pelvises. There are no renal calculi or definite masses. Ureters not well visualized. Adrenal Glands: Unremarkable. Aorta: The sclerotic changes are again noted in the aorta with dilatation and calcification. Bowel/Mesentery: No oral contrast was given limiting the sensitivity of the examination. New ascitic fluid is noted throughout the abdomen and pelvis. There is poor delineation of the bowel loops. Ther e are multiple loops of nondilated air-containing small bowel. There is more mild gaseous dilatation of portions of the colon. There is no evidence of free air. Abdominal Wall: Intact. Retroperitoneum: No evidence of adenopathy in the retrocrural, para-aortic, or deep pelvic regions. Bladder: A Andrew catheter is now present in the bladder with air-fluid level. Reproductive Organs: No abnormal masses or calcifications seen. Inguinal: The inguinal region is unremarkable without evidence of adenopathy. Bony Structures: Unremarkable. CONCLUSION: 1. New moderate amount of ascitic fluid present. 2. Nonspecific bowel gas pattern which may represent an ileus or gastroenteritis. 3. New small bilateral pleural effusions with consolidation in the lung bases right greater than lef t. The heart size remains enlarged. 4. The kidneys are stable in appearance with bilateral hydronephrosis again noted. Electronically signed by: Jonathon Coker MD Board Certified Radiologist 03/27/2018 1:16 PM EST
[2018-03-27] MEDS: Heparin 10,000 UNITS/10 ML Vial (for IV use) OTHER PRN (15:50)
--- NOTE | 2018-03-27 16:13 | IR ---
EXAM DATE: 03/27/2018 3:15 PM EST AGE/SEX: 77 years / Male INDICATIONS: Patient presents with renal failure in need of temporary dialysis catheter for hemodial ysis. CLINICAL DATA: This is the patient's initial encounter. Patient reports that signs and symptoms have been present for 2 days and indicates a pain score of 0/10. MEDICAL/SURGICAL HISTORY: Diverticulitis. Myocardial infarction. Stroke. Bleeding Ulcer CAB G. Hernia repair COMPARISON: No prior exams available for comparison. FLUORO TIME (min): :31 IMAGE SERIES: RADIATION DOSE: 2mGy CAK ACCESS SITE: Left internal jugular vein DEVICE(S): 14 [place] double lumen 20cm Schon catheter . . PROCEDURE : 1. Fluoroscopic guided venipuncture. 2. Central line placement. The risks, benefits and alternatives to the procedure were explained and verbal and written consent w as obtained. The site was prepped in sterile fashion. Full sterile technique was used, including ca p, mask, sterile gloves and gown and a large sterile sheet. Hand hygiene and 2% chlorhexidine prep w as utilized per protocol for cutaneous antisepsis with appropriate dry time for site. The skin and subcutaneous tissues were infiltrated with local anesthetic solution. With fluoroscopic guidance a dermatotomy created and subcutaneous dissection was performed. A small incision was made. A micropuncture set was used to gain access and serial dilatation was performed to accept the jameel ter as prescribed above. The catheter was advanced into position under direct fluoroscopic visualiza tion, and was advanced with the tip at the junction of the superior vena cava and rt atrium. The cat heter was fixed in place with suture and a sterile dressing was applied. The patient tolerated the procedure well and there were no complications. CONCLUSION: 1. Uncomplicated line placement as above. The catheter functions well and is ready for use. Electronically signed by: Nacho Moreno MD Board Certified Radiologist 03/27/2018 4:11 PM EST
[2018-03-27 18:09] LABS: Hepatitits B Surface Antigen Nonreactive (Nonreactive)
[2018-03-27 18:51] LABS: Hepatitis A IgM Antibody Nonreactive (Nonreactive)
[2018-03-27] MEDS: Sodium Bicarbonate 8.4% Inj 75 MEQ in Dextrose 5%/NaCl 0.45% Inj 1,000 ML IV.CONT SCH (18:54)
--- NOTE | 2018-03-28 08:44 | XR ---
EXAM DATE: 03/28/2018 8:40 AM EST AGE/SEX: 77 years / Male INDICATIONS: Congestion CLINICAL DATA: This is the patient's subsequent encounter. Patient reports that signs and symptoms h ave been present for 3 days and indicates a pain score of Nonresponsive. MEDICAL/SURGICAL HISTORY: . Diverticulitis. Stroke. Cardiovascular disease. . CABG COMPARISON: C, CHEST 1V SINGLE AP, 03/25/2018. . FINDINGS: A single AP view of the chest demonstrates interval placement of a left-sided dialysis catheter. Bila teral mixed interstitial and intra-alveolar opacities are observed with small posterior layering bila teral pleural effusions. The heart is enlarged. A single median sternotomy wire noted. Coronary marke rs observed. Old trauma involving the right humeral neck. CONCLUSION: Radiographic pattern suggesting fluid overload. Electronically signed by: Nacho Moreno MD Board Certified Radiologist 03/28/2018 8:43 AM EST
--- NOTE | 2018-03-28 09:27 | P.PNIM ---
Subjective Interval history: pt sleeping after ativan overnight for agitation/delirium at bedside Physical Exam Vital signs: Last Vital Signs Temp 98.0 F 03/28/18 07:25 Pulse 85 03/28/18 07:25 Resp 20 03/28/18 07:25 BP 185/86 H 03/28/18 07:25 Pulse Ox 96 03/28/18 07:25 Narrative: sleeping. opens eyes to sternal rub and falls asleep heart reg. systolic murmer LLSB lung course rhonci bilaterally abd minimal bs. nd bhakta Results Labs CBC & Chem 7: 03/27/18 10:15 03/27/18 08:03 Assessment and Plan Assessment (1) Acute kidney injury: Code(s): N17.9 - Acute kidney failure, unspecified Status: Acute (2) Bilateral hydronephrosis: Code(s): N13.30 - Unspecified hydronephrosis Status: Acute Plan 1. DAINA with bilateral hydro and severe right abdomen and flank pain. concern for perinephric stranding and fluid collection adjacent to right kidney. Seen by urology and prostate is "rock hard". Concern for prostate ca and likely some obstruction. psa 159 worsening renal function overnight and cr over 6 and vascath and HD initiated 2/ 6 Pt developed severe agitation/delirium at the end of HD. unclear etiology. ?HD related. now with concern for pulmonary edema...?vs aspiration. no fever 2. 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 cad. cabg x 4 4. hx duoadenal ulcer and diverticulosis HD per Renal cxr to eval pulmonary edema/ aspiration schedule nebs ivf per renal. spoke with Dr Griffith Urology and cysto planned Progress Note: Quality VTE Deep Vein Thrombosis/Pulmonary Embolism Present on Admission: No
[2018-03-28 09:48] LABS: Calcium 8.3 mg/dL (8.5-10.1); Carbon Dioxide 26.3 meq/L (21.0-32.0); Potassium 4.6 meq/L (3.5-5.1)
--- NOTE | 2018-03-28 10:55 | P.PNURO ---
Subjective Patient symptoms today: Pt seen and examined. Events noted. Repeat CT scan still with b/l hydro after bhakta placed. U/O minimal. HD yesterday. Objective Vital Signs: Vital Signs 03/27/18 20:00 03/28/18 00:00 03/28/18 05:30 Temperature 98.8 F 99.2 F 99.4 F Pulse Rate 92 H 95 H 78 Respiratory Rate 16 18 20 Blood Pressure 154/89 H 173/90 H 185/86 H Pulse Oximetry 92 L 92 L 95 03/28/18 07:25 Temperature 98.0 F Pulse Rate 85 Respiratory Rate 20 Blood Pressure 185/86 H Pulse Oximetry 96 Intake & Output 03/27/18 03/28/18 03/28/18 18:59 06:59 18:59 Intake Total 1000 / 1000 0 / 0 Output Total 1200 / 1200 0 / 0 Balance -200 / -200 0 / 0 Weight 50.8 kg Intake: IV 1000 / 1000 NS Inj 1,000 ML @ 100 mls/hr IV 1000 / 1000 .CONT .Q10H [facility] Rx#:[id number] Oral 0 / 0 0 / 0 Output: Hemodialysis Amount 1200 / 1200 Urine Amount (Catheter) 0 / 0 Indwelling Urethral Catheter 0 / 0 Other: Date of Last Bowel Movement 03/25/18 # Bowel Movements 0 Result Diagrams: 03/27/18 10:15 03/28/18 08:53 Imaging: Impressions Abdomen/Pelvis CT 03/27/18 00:00 CONCLUSION: 1. New moderate amount of ascitic fluid present. 2. Nonspecific bowel gas pattern which may represent an ileus or gastroenteritis. 3. New small bilateral pleural effusions with consolidation in the lung bases right greater than left. The heart size remains enlarged. 4. The kidneys are stable in appearance with bilateral hydronephrosis again noted. Catheter Placement 03/27/18 00:00 CONCLUSION: 1. Uncomplicated line placement as above. The catheter functions well and is ready for use. Chest X-Ray 03/28/18 00:00 CONCLUSION: Radiographic pattern suggesting fluid overload. Medications and IVs: Active Medications Generic Name Dose Route Start Last Admin Trade Name Freq PRN Reason Stop Dose Admin Acetaminophen 650 mg 03/27/18 10:21 Tylenol PO UNSCH PRN SEE LABEL COMMENTS Hydrocodone Bitart/Acetaminophen 2 tab 03/25/18 23:54 03/27/18 09:00 [place] 5/325 PO 2 tab Q6H PRN Administration PAIN SCALE 1 TO 5 Albuterol 1 ampul 03/28/18 08:09 Duoneb Neb (Danny) NEB Q4HR NEB [facility]AN[facility] Aspirin 81 mg 03/27/18 09:00 03/27/18 09:00 Aspirin Chew PO 81 mg DAILY [facility]ANNY Administration Clonidine HCl 0.1 mg 03/27/18 10:21 Catapres PO UNSCH PRN SEE LABEL COMMENTS Clonidine HCl 0.2 mg 03/28/18 10:38 Catapres PO Q4HR PRN sbp > 170 Diphenhydramine HCl 25 mg 03/27/18 10:21 Benadryl PO UNSCH PRN SEE LABEL COMMENTS Gabapentin 100 mg 03/26/18 13:00 03/27/18 07:30 Neurontin PO 100 mg BID@08,13 [facility]AN[facility] Administration Gabapentin 200 mg 03/26/18 21:00 03/27/18 20:48 Neurontin PO Not Given [facility] Gelatin 1 foam 03/27/18 10:21 Gelfoam 12 Mm/7 Mm Topical TOPICAL PRN PRN help stop bleeding from site Gentamicin Sulfate 20 mg 03/27/18 10:21 03/27/18 15:50 Gentamicin Inj OTHER 20 mg WITH DIALYSIS PRN Administration Dwell Gentamycin Lock Haloperidol Lactate 2.5 mg 03/27/18 18:16 Haldol Inj IV.PUSH Q4HR PRN AGITATION Heparin Sodium (Porcine) 1,000 units 03/27/18 10:21 03/27/18 15:50 Heparin Inj OTHER 1,000 units WITH DIALYSIS PRN Administration Dwell Heparin to Fill Catheter Heparin Sodium (Porcine) 8,000 units 03/27/18 10:21 Heparin Inj OTHER WITH DIALYSIS PRN for machine prime Heparin Sodium (Porcine) 0 unit 03/27/18 12:17 Heparin Central Flush IV.FLUSH DAILY PRN SEE DOSE INSTRUCTIONS Sodium Bicarbonate 75 meq/ 1,075 mls @ 42 mls/hr 03/27/18 10:15 03/27/18 18: 54 Dextrose/Sodium Chloride IV.CONT 42 mls/hr .Q24H [facility] Administration Albumin Human 100 mls @ 60 mls/hr 03/27/18 10:21 Flexbumin 25% Inj IV.SIG WITH DIALYSIS PRN hypotension / volume replace Sodium Chloride 1,000 mls @ 0 mls/hr 03/27/18 10:21 Ns Inj OTHER .Q0M PRN for prime and rinse back As Directed Sodium Chloride 1,000 mls @ 200 mls/hr 03/27/18 10:21 Ns Inj OTHER .Q5H PRN for dialyzer flush PRN Sodium Chloride 1,000 mls @ 0 mls/hr 03/27/18 10:21 Ns Inj IV.CONT .Q0M PRN hypotension / volume replace As Directed Lorazepam 1 mg 03/27/18 18:18 03/28/18 01:48 Ativan Inj IV.PUSH 1 mg Q2H PRN Administration SEVERE AGITATION Mannitol 12.5 gm 03/27/18 10:21 Mannitol Inj IV.PUSH UNSCH PRN hypotension / volume replace Morphine Sulfate 2 mg 03/25/18 23:54 03/26/18 04:30 Morphine Inj IV.PUSH 2 mg Q4H PRN Administration PAIN SCALE 6 TO 10 Nitroglycerin 0.4 mg 03/27/18 10:21 Nitrostat Sl SL Q5M PRN CHEST PAIN Ondansetron HCl 4 mg 03/27/18 10:21 Zofran Inj IV.PUSH UNSCH PRN NAUSEA OR VOMITING Sodium Chloride 2 ml 03/25/18 20:42 Ns Flush IV.FLUSH PRN PRN FLUSH AFTER USING IV ACCESS Sodium Chloride 5 ml 03/27/18 10:21 Ns Flush IV.FLUSH PRN PRN flush each lumen during HD Sodium Chloride 0 ml 03/27/18 12:17 Ns Flush IV.FLUSH PRN PRN SEE DOSE INSTRUCTIONS Objective Remarks: Abd:soft,nt,nd Bladder not distended 03/28 Abd:soft,nt,nd Bladder not distended Assessment and Plan - Plan 77 y.o male admitted with abdominal pain; ARF and elevated PSA Maintain bhakta drainage for now CT scan later today Nephrology consulted. 03/28 77y.o. male with ARF and bilateral hydro with elevated PSA Will plan for cysto with b/l RPR's today in OR with possible stent insertion D/W pt's
[2018-03-28] MEDS: Sodium Bicarbonate 8.4% Inj 75 MEQ in Dextrose 5%/NaCl 0.45% Inj 1,000 ML IV.CONT SCH (11:18)
[2018-03-28 11:38] LABS: Baso % (Auto) 0.4 % (0.0-2.0); Eos % (Auto) 0.4 % (0.0-4.0); Hematocrit 35.3 % (39.0-51.0); Hemoglobin 12.1 gm/dL (13.0-17.0); Lymph # (Auto) 0.7 th/mm3 (1.0-4.8); Lymph % (Auto) 7.3 % (9.0-44.0); Mean Corpuscular HGB Conc 34.3 % (32.0-36.0); Mean Corpuscular Volume 96.4 fL (80.0-100.0); Mean Platelet Volume 9.8 fL (7.0-11.0); Mono # (Auto) 0.8 th/mm3 (0.0-0.9); Mono % (Auto) 7.8 % (0.0-8.0); Neut # (Auto) 8.5 th/mm3 (1.8-7.7); Neut % (Auto) 84.1 % (16.0-70.0); Red Blood Count 3.66 mil/mm3 (4.50-5.90); Red Cell Distribution Width 12.7 % (11.6-17.2); White Blood Count 10.1 th/mm3 (4.0-11.0)
[2018-03-28 12:16] LABS: Platelet Count 111 th/mm3 (150-450)
[2018-03-28 12:17] LABS: Ovalocytes 1+; Platelet Morphology Clumped (Normal)
[2018-03-28] MEDS ORDERED: Lidocaine PF 1% Inj 5 ML Syringe OTHER ONE (13:06)
[2018-03-28] MEDS ORDERED: Chlorhexidine Gluconate 2% 1 Pack (2 Cloths) TOPICAL ONE (13:39)
[2018-03-28] MEDS ORDERED: Metoprolol Tartrate 25 MG Tablet PO ONE (13:39)
[2018-03-28] MEDS ORDERED: Sodium Chloride 0.9% 2 ML Flush PRN IV.FLUSH (13:44)
[2018-03-28] MEDS ORDERED: Sodium Chlor 0.9% Inj 500 ML IV.SIG SCH (14:00)
--- NOTE | 2018-03-28 14:18 | P.OP ---
- Preoperative Diagnosis (1) Elevated PSA (2) Acute kidney injury (3) Bilateral hydronephrosis - Postoperative Diagnosis (1) Acute kidney injury (2) Bilateral hydronephrosis (3) Elevated PSA Date of procedure: 03/28/18 Procedure: Cystoscopy, right retrograde pyelogram, right double-J stent insertion with left double-J stent insertion Anesthesia: other (General LMA) Surgeon: Loco Griffith DO Estimated blood loss (mL): 0 Pathology: none sent Operation and Findings: 77-year-old male admitted with acute renal failure with bilateral hydronephrosis and elevated PSA. Patient had 2 CT scans both demonstrated bilateral hydronephrosis with decision made to bring the patient to the operating room to undergo cystoscopy with possible double-J stent insertion. Risk and benefits were discussed preoperatively with the patient and his and they were willing to proceed. 22 [place] cystoscope was inserted in the bladder and trabeculations were noted throughout the bladder and coaptating prosthetic lobes were identified. The right ureteral orifice was identified for regimen catheter inserted into the right ureteral orifice. Retrograde pyelogram was performed demonstrating some hydroureter and mild hydronephrosis. A 0.35 sensor wire was then passed through the opening catheter and the opening catheter was then removed. A 6 Finnish 22 cm right double-J stent was placed in good position. Radiographic findings; retrograde pyelogram on the right side demonstrated hydroureter with mild hydronephrosis present. The left ureteral orifice was then identified and a angled Glidewire was then passed up the left ureter. There was some resistance at both the right and the left ureteral orifices when passing catheters and wires. Retrograde pyelogram was not performed on the left side and decision made to leave a stent. A 6 Finnish 24 cm left double-J stent was then passed over the hydrophilic wire with a good curl in the kidney and the bladder. A 20 Finnish Andrew catheter was then inserted into the bladder without difficulty and was irrigated to clear. 25 cc of sterile water were placed in the balloon. The patient was awoken and extubated transferred recovery in stable condition he tolerated the procedure well. From this point on will continue to follow him with serial BMPs and monitor his creatinine to see if there is an improvement.
[2018-03-28] MEDS ORDERED: Belladonna Alkaloid/Opium 60 MG Supp RECTAL PRN (14:32)
[2018-03-28] MEDS ORDERED: fentaNYL Citrate Inj 100 MCG/2 ML Ampul ONE (14:32)
[2018-03-28] MEDS: Heparin 10,000 UNITS/10 ML Vial (for IV use) OTHER PRN (15:50)
--- NOTE | 2018-03-28 16:54 | P.PNNP ---
Subjective Interval history: Patient was seen this AM, NAD. Patient dialyzed yesterday for the first time, 1.2 L removed. Renal function has declined, Creatinine is 7.30. Patient to be dialyzed again today. Patient had cystoscopy, right retrograde pyelogram, right double-J stent insertion with left double-J stent insertion done today w/urology. <OneilRadhaelizabethmakenna - Last Filed: 03/28/18 16:43> Physical Exam Vital signs: Vital Signs 03/27/18 20:00 03/28/18 00:00 03/28/18 05:30 Temperature 98.8 F 99.2 F 99.4 F Pulse Rate 92 H 95 H 78 Respiratory Rate 16 18 20 Blood Pressure 154/89 H 173/90 H 185/86 H Pulse Oximetry 92 L 92 L 95 03/28/18 07:25 03/28/18 11:25 03/28/18 11:41 Temperature 98.0 F 99.1 F Pulse Rate 85 85 70 Respiratory Rate 20 20 18 Blood Pressure 185/86 H 175/88 H Pulse Oximetry 96 92 L 03/28/18 11:59 03/28/18 14:23 03/28/18 14:40 Temperature 99 F 98.0 F 98.1 F Pulse Rate 89 90 86 Respiratory Rate 20 17 17 Blood Pressure 175/88 H 164/81 H 164/81 H Pulse Oximetry 92 L 97 97 Intake & Output 03/27/18 03/28/18 03/28/18 18:59 06:59 18:59 Intake Total 1000 / 1000 0 / 0 400 / 400 Output Total 1200 / 1200 0 / 0 135 / 135 Balance -200 / -200 0 / 0 265 / 265 Weight 50.8 kg Intake: IV 1000 / 1000 NS Inj 1,000 ML @ 100 mls/hr IV 1000 / 1000 .CONT .Q10H [facility] Rx#:[id number] Oral 0 / 0 0 / 0 Anesthesia Amount 400 / 400 Output: Hemodialysis Amount 1200 / 1200 Estimated Blood Loss 10 / 10 Urine Amount (Catheter) 0 / 0 125 / 125 Indwelling Urethral Catheter 0 / 0 125 / 125 Other: Date of Last Bowel Movement 03/25/18 # Bowel Movements 0 - Constitutional no acute distress - Routine HEENT Exam Head: Present: normocephalic - Routine Neck Exam Absent: JVD, tracheal deviation - Routine Respiratory Exam Absent: accessory muscle use, respiratory distress - Routine Cardiovascular Exam Present: RRR - Routine Abdominal Exam Present: soft - Routine Extremities Exam Absent: edema - Urinary Catheter Management Indwelling Urethral Catheter Cath placed during this visit: yes, but has since been removed by the nurse Reason for continuing: Hourly intake/output Insertion date: 03/28/18 Insertion time: 09:15 Removal date: 03/28/18 Removal time: 13:47 <Rena Riggs - Last Filed: 03/28/18 16:43> Vital signs: Vital Signs 03/28/18 00:00 03/28/18 05:30 03/28/18 07:25 Temperature 99.2 F 99.4 F 98.0 F Pulse Rate 95 H 78 85 Respiratory Rate 18 20 20 Blood Pressure 173/90 H 185/86 H 185/86 H Pulse Oximetry 92 L 95 96 03/28/18 11:25 03/28/18 11:41 03/28/18 11:59 Temperature 99.1 F 99 F Pulse Rate 85 70 89 Respiratory Rate 20 18 20 Blood Pressure 175/88 H 175/88 H Pulse Oximetry 92 L 92 L 03/28/18 14:23 03/28/18 14:40 Temperature 98.0 F 98.1 F Pulse Rate 90 86 Respiratory Rate 17 17 Blood Pressure 164/81 H 164/81 H Pulse Oximetry 97 97 Intake & Output 03/28/18 03/28/18 03/29/18 06:59 18:59 06:59 Intake Total 0 / 0 400 / 400 Output Total 0 / 0 3410 / 3410 Balance 0 / 0 -3010 / -3010 Weight 50.8 kg Intake: Oral 0 / 0 Anesthesia Amount 400 / 400 Output: Hemodialysis Amount 3000 / 3000 Estimated Blood Loss 10 / 10 Urine Amount (Catheter) 0 / 0 400 / 400 Indwelling Urethral Catheter 0 / 0 400 / 400 - Urinary Catheter Management Indwelling Urethral Catheter Cath placed during this visit: no <Goyo Haro - Last Filed: 03/28/18 20:56> Assessment and Plan - Assessment (1) Acute kidney injury Code(s): N17.9 - Acute kidney failure, unspecified Status: Acute Plan: DAINA could be due to obstruction. Patient made little urine since bhakta placed. Patient dialyzed yesterday for the first time, 1.2 L removed. Renal function has declined, Creatinine is 7.30. Patient to be dialyzed again today. s/p cystoscopy, right retrograde pyelogram, right double-J stent insertion with left double-J stent insertion. Monitor for any urine output. Monitor fluid and electrolytes. Avoid nephrotoxic agents. (2) Bilateral hydronephrosis Code(s): N13.30 - Unspecified hydronephrosis Status: Acute Plan: Urology consulted, patient had cystoscopy, right retrograde pyelogram, right double-J stent insertion with left double-J stent insertion. Monitor for improvement. <Rena Riggs - Last Filed: 03/28/18 16:43> - Assessment (1) Acute kidney injury Code(s): N17.9 - Acute kidney failure, unspecified Status: Acute (2) Bilateral hydronephrosis Code(s): N13.30 - Unspecified hydronephrosis Status: Acute - Attending Attestation patient was seen and examined. Agree with above assessment and plan. Patient was seen during dialysis. He continues to be confused. His urine output appears to have improved after placement of ureteral stents. <Goyo Haro - Last Filed: 03/28/18 20:56>
[2018-03-28] MEDS: Sodium Chloride 0.9% 2 ML Flush BID IV.FLUSH SCH (21:51)
[2018-03-28] MEDS: Gabapentin 100 MG Capsule PO SCH (21:51)
[2018-03-29] MEDS: Sodium Chloride 0.9% 2 ML Flush BID IV.FLUSH SCH ×2 (09:19→20:34)
[2018-03-29] MEDS: Sodium Bicarbonate 8.4% Inj 75 MEQ in Dextrose 5%/NaCl 0.45% Inj 1,000 ML IV.CONT SCH (10:31)
--- NOTE | 2018-03-29 11:53 | P.PNNP ---
Subjective Interval history: Patient was seen, no distress, on restraints. Patient continues to be confused. Labs were ordered today and are pending, monitoring for renal improvement. Urine output appears to have improved after placement of ureteral stents yesterday. <Howard Riggsmakenna - Last Filed: 03/29/18 11:53> Physical Exam Vital signs: Vital Signs 03/28/18 11:59 03/28/18 12:00 03/28/18 14:23 Temperature 99 F 98.0 F Pulse Rate 89 90 Respiratory Rate 20 18 17 Blood Pressure 175/88 H 164/81 H Pulse Oximetry 92 L 97 03/28/18 14:40 03/28/18 21:35 03/28/18 23:13 Temperature 98.1 F 100.0 F H Pulse Rate 86 96 H Respiratory Rate 17 21 16 Blood Pressure 164/81 H 166/79 H Pulse Oximetry 97 92 L 94 L 03/29/18 00:25 03/29/18 03:51 03/29/18 04:30 Temperature 98.3 F 99.0 F Pulse Rate 95 H 97 H 97 H Respiratory Rate 20 19 20 Blood Pressure 172/82 H 139/84 Pulse Oximetry 92 L 94 L 03/29/18 08:00 03/29/18 08:09 Temperature 98.4 F Pulse Rate 87 86 Respiratory Rate 18 16 Blood Pressure 163/80 H Pulse Oximetry 99 97 Intake & Output 03/28/18 03/29/18 03/29/18 18:59 06:59 18:59 Intake Total 400 / 400 1225 / 1225 Output Total 3410 / 3410 500 / 500 Balance -3010 / -3010 725 / 725 Weight 50.8 kg Intake: IV 1075 / 1075 Sodium Bicarbonate 8.4% Inj 75 1075 / 1075 MEQ In D5W/1/2 NS Inj 1,000 ML @ 42 mls/hr IV.CONT .Q24H [facility] Rx#:[id number] Oral 150 / 150 Anesthesia Amount 400 / 400 Output: Hemodialysis Amount 3000 / 3000 Estimated Blood Loss 10 / 10 Urine Amount (Catheter) 400 / 400 500 / 500 Indwelling Urethral Catheter 400 / 400 500 / 500 Other: Date of Last Bowel Movement 03/27/18 03/27/18 # Bowel Movements 0 - Constitutional no acute distress - Routine HEENT Exam Head: Present: normocephalic ENT: Present: mucous membranes moist - Routine Neck Exam Present: trachea midline. Absent: tracheal deviation - Routine Cardiovascular Exam Present: RRR. Absent: JVD - Routine Abdominal Exam Absent: tenderness, distended - Routine Extremities Exam Absent: edema - Routine Neurological Exam Absent: oriented X3 - Routine Psychiatric Exam Present: unable to assess - Urinary Catheter Management Indwelling Urethral Catheter Cath placed during this visit: yes, but has since been removed by the nurse Reason for continuing: Hourly intake/output Insertion date: 03/28/18 Insertion time: 09:15 Removal date: 03/28/18 Removal time: 13:47 <Rena Riggs - Last Filed: 03/29/18 11:53> Vital signs: Vital Signs 03/28/18 21:35 03/28/18 23:13 03/29/18 00:25 Temperature 100.0 F H 98.3 F Pulse Rate 96 H 95 H Respiratory Rate 21 16 20 Blood Pressure 166/79 H 172/82 H Pulse Oximetry 92 L 94 L 92 L 03/29/18 03:51 03/29/18 04:30 03/29/18 08:00 Temperature 99.0 F 98.4 F Pulse Rate 97 H 97 H 87 Respiratory Rate 19 20 18 Blood Pressure 139/84 163/80 H Pulse Oximetry 94 L 99 03/29/18 08:09 03/29/18 12:00 Temperature 98.2 F Pulse Rate 86 85 Respiratory Rate 16 18 Blood Pressure 163/74 H Pulse Oximetry 97 98 Intake & Output 03/28/18 03/29/18 03/29/18 18:59 06:59 18:59 Intake Total 400 / 400 1225 / 1225 Output Total 3410 / 3410 500 / 500 Balance -3010 / -3010 725 / 725 Weight 50.8 kg Intake: IV 1075 / 1075 Sodium Bicarbonate 8.4% Inj 75 1075 / 1075 MEQ In D5W/1/2 NS Inj 1,000 ML @ 42 mls/hr IV.CONT .Q24H [facility] Rx#:[id number] Oral 150 / 150 Anesthesia Amount 400 / 400 Output: Hemodialysis Amount 3000 / 3000 Estimated Blood Loss 10 / 10 Urine Amount (Catheter) 400 / 400 500 / 500 Indwelling Urethral Catheter 400 / 400 500 / 500 Other: Date of Last Bowel Movement 03/27/18 03/27/18 # Bowel Movements 0 - Urinary Catheter Management Indwelling Urethral Catheter Cath placed during this visit: no <Goyo Haro - Last Filed: 03/29/18 16:54> Assessment and Plan - Assessment (1) Acute kidney injury Code(s): N17.9 - Acute kidney failure, unspecified Status: Acute Plan: DAINA could be due to obstruction. Patient was making little urine output with bhakta cath in place. Urine output appears to have improved after placement of ureteral stents yesterday. Patient dialyzed yesterday for the second time, 3 L removed. Labs were ordered today and are pending, monitoring for renal improvement. Monitor urine output. Monitor fluid and electrolytes. Avoid nephrotoxic agents. (2) Bilateral hydronephrosis Code(s): N13.30 - Unspecified hydronephrosis Status: Acute Plan: Urology consulted, patient had cystoscopy, right retrograde pyelogram, right double-J stent insertion with left double-J stent insertion. <Rena Riggs - Last Filed: 03/29/18 11:53> - Assessment (1) Acute kidney injury Code(s): N17.9 - Acute kidney failure, unspecified Status: Acute (2) Bilateral hydronephrosis Code(s): N13.30 - Unspecified hydronephrosis Status: Acute - Attending Attestation patient was seen and examined. Agree with above assessment and plan. Urine output has improved after ureteral stent placement. Dialyzed yesterday. Monitor for renal recovery. <Goyo Haro - Last Filed: 03/29/18 16:54>
[2018-03-29 12:27] LABS: Calcium 8.1 mg/dL (8.5-10.1); Carbon Dioxide 28.6 meq/L (21.0-32.0); Potassium 3.7 meq/L (3.5-5.1)
--- NOTE | 2018-03-29 12:56 | P.PNIM ---
Subjective Interval history: Pt is in restraints but is more alert and confused but this is improving He has hematuria noted in the Andrew bag Afebrile Physical Exam Vital signs: Last Vital Signs Temp 98.2 F 03/29/18 12:00 Pulse 85 03/29/18 12:00 Resp 18 03/29/18 12:00 BP 163/74 H 03/29/18 12:00 Pulse Ox 98 03/29/18 12:00 Narrative: General: NAD, Awake and alert, answers some questions appropriately Cardiac: Regular, systolic murmur LLSB Lung: CTA Abd: +BS, soft ND Andrew in place with hematuria noted Results Labs CBC & Chem 7: 03/28/18 11:15 03/29/18 11:30 Imaging Abdomen/Pelvis CT 03/25/18 20:42 CONCLUSION: 1. Moderate hydronephrosis and hydroureter bilaterally. 2. There is fluid adjacent to the right kidney and right ureter. 3. Diverticulosis without diverticulitis. 4. Mild circumferential wall thickening urinary bladder. Chest X-Ray 03/25/18 20:42 CONCLUSION: Postop CABG. Mild basilar atelectasis. Abdomen/Pelvis CT 03/27/18 00:00 CONCLUSION: 1. New moderate amount of ascitic fluid present. 2. Nonspecific bowel gas pattern which may represent an ileus or gastroenteritis. 3. New small bilateral pleural effusions with consolidation in the lung bases right greater than left. The heart size remains enlarged. 4. The kidneys are stable in appearance with bilateral hydronephrosis again noted. Catheter Placement 03/27/18 00:00 CONCLUSION: 1. Uncomplicated line placement as above. The catheter functions well and is ready for use. Chest X-Ray 03/28/18 00:00 CONCLUSION: Radiographic pattern suggesting fluid overload. Assessment and Plan Assessment (1) Acute kidney injury: Code(s): N17.9 - Acute kidney failure, unspecified Status: Acute (2) Bilateral hydronephrosis: Code(s): N13.30 - Unspecified hydronephrosis Status: Acute Plan DAINA with bilateral hydro and severe right abdomen and flank pain. - Concern for perinephric stranding and fluid collection adjacent to right kidney. - Pt was seen by urology and prostate is "rock hard." Concern for prostate ca and likely some obstruction. - PSA elevated at 159 - Pt underwent Cystoscopy, right retrograde pyelogram, right double-J stent insertion with left double-J stent insertion on 03/28/[address] Griffith - Renal function worsened on 03/27 with Creatinine over 6 and vascath and HD initiated 03/27. Cr on 03/28/18 increased again to 7.30 - Pt developed severe agitation/delirium at the end of HD. unclear etiology. ? HD related - Pt had second HD on 03/28/18 and responded better and is clinically improving - His Cr improved on 03/29/18 down to 3.9 - Repeat labs in AM - Supportive care Pulmonary edema - CXR (03/28/18) --> fluid overload - Improving after HD - Cont. 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 Assessment and plan formulated with Aliya Portillo PA-C. I agree with the above. prostate ca. bilateral hydro daina. s/p cysto hannah stents s/p HD x 2 cr trending down. still confused but cooperative and improving. Progress Note: Quality VTE Deep Vein Thrombosis/Pulmonary Embolism Present on Admission: No
--- NOTE | 2018-03-29 12:57 | P.PNURO ---
Subjective Patient symptoms today: Pt seen and examined. In restraints. Bhakta blood tinged. Objective Vital Signs: Vital Signs 03/28/18 14:23 03/28/18 14:40 03/28/18 21:35 Temperature 98.0 F 98.1 F 100.0 F H Pulse Rate 90 86 96 H Respiratory Rate 17 17 21 Blood Pressure 164/81 H 164/81 H 166/79 H Pulse Oximetry 97 97 92 L 03/28/18 23:13 03/29/18 00:25 03/29/18 03:51 Temperature 98.3 F Pulse Rate 95 H 97 H Respiratory Rate 16 20 19 Blood Pressure 172/82 H Pulse Oximetry 94 L 92 L 03/29/18 04:30 03/29/18 08:00 03/29/18 08:09 Temperature 99.0 F 98.4 F Pulse Rate 97 H 87 86 Respiratory Rate 20 18 16 Blood Pressure 139/84 163/80 H Pulse Oximetry 94 L 99 97 03/29/18 12:00 Temperature 98.2 F Pulse Rate 85 Respiratory Rate 18 Blood Pressure 163/74 H Pulse Oximetry 98 Intake & Output 03/28/18 03/29/18 03/29/18 18:59 06:59 18:59 Intake Total 400 / 400 1225 / 1225 Output Total 3410 / 3410 500 / 500 Balance -3010 / -3010 725 / 725 Weight 50.8 kg Intake: IV 1075 / 1075 Sodium Bicarbonate 8.4% Inj 75 1075 / 1075 MEQ In D5W/1/2 NS Inj 1,000 ML @ 42 mls/hr IV.CONT .Q24H [facility] Rx#:[id number] Oral 150 / 150 Anesthesia Amount 400 / 400 Output: Hemodialysis Amount 3000 / 3000 Estimated Blood Loss 10 / 10 Urine Amount (Catheter) 400 / 400 500 / 500 Indwelling Urethral Catheter 400 / 400 500 / 500 Other: Date of Last Bowel Movement 03/27/18 03/27/18 # Bowel Movements 0 Result Diagrams: 03/28/18 11:15 03/29/18 11:30 Medications and IVs: Active Medications Generic Name Dose Route Start Last Admin Trade Name Freq PRN Reason Stop Dose Admin Acetaminophen 650 mg 03/27/18 10:21 Tylenol PO UNSCH PRN SEE LABEL COMMENTS Hydrocodone Bitart/Acetaminophen 2 tab 03/25/18 23:54 03/27/18 09:00 [place] 5/325 PO 2 tab Q6H PRN Administration PAIN SCALE 1 TO 5 Albuterol 1 ampul 03/28/18 08:09 03/29/18 11:58 Duoneb Neb (Danny) NEB 1 ampul Q4HR NEB DANNY Administration Aspirin 81 mg 03/27/18 09:00 03/29/18 09:15 Aspirin Chew PO 81 mg DAILY DANNY Administration Belladonna Alkaloids/Opium 60 mg 03/28/18 14:32 B & O Supp RECTAL Q6HR PRN bladder spasms Clonidine HCl 0.1 mg 03/27/18 10:21 Catapres PO UNSCH PRN SEE LABEL COMMENTS Clonidine HCl 0.2 mg 03/28/18 10:38 Catapres PO Q4HR PRN sbp > 170 Diphenhydramine HCl 25 mg 03/27/18 10:21 Benadryl PO UNSCH PRN SEE LABEL COMMENTS Gabapentin 100 mg 03/26/18 13:00 03/27/18 07:30 Neurontin PO 100 mg BID@08,13 DANNY Administration Gabapentin 200 mg 03/26/18 21:00 03/28/18 21:51 Neurontin PO 200 mg HS DANNY Administration Gelatin 1 foam 03/27/18 10:21 Gelfoam 12 Mm/7 Mm Topical TOPICAL PRN PRN help stop bleeding from site Gentamicin Sulfate 20 mg 03/27/18 10:21 03/28/18 15:51 Gentamicin Inj OTHER 20 mg WITH DIALYSIS PRN Administration Dwell Gentamycin Lock Haloperidol Lactate 2.5 mg 03/27/18 18:16 Haldol Inj IV.PUSH Q4HR PRN AGITATION Heparin Sodium (Porcine) 1,000 units 03/27/18 10:21 03/28/18 15:50 Heparin Inj OTHER 1,000 units WITH DIALYSIS PRN Administration Dwell Heparin to Fill Catheter Heparin Sodium (Porcine) 8,000 units 03/27/18 10:21 Heparin Inj OTHER WITH DIALYSIS PRN for machine prime Heparin Sodium (Porcine) 0 unit 03/27/18 12:17 Heparin Central Flush IV.FLUSH DAILY PRN SEE DOSE INSTRUCTIONS Sodium Bicarbonate 75 meq/ 1,075 mls @ 42 mls/hr 03/27/18 10:15 03/29/18 10: 31 Dextrose/Sodium Chloride IV.CONT 42 mls/hr .Q24H DANNY Administration Albumin Human 100 mls @ 60 mls/hr 03/27/18 10:21 Flexbumin 25% Inj IV.SIG WITH DIALYSIS PRN hypotension / volume replace Sodium Chloride 1,000 mls @ 0 mls/hr 03/27/18 10:21 Ns Inj OTHER .Q0M PRN for prime and rinse back As Directed Sodium Chloride 1,000 mls @ 200 mls/hr 03/27/18 10:21 Ns Inj OTHER .Q5H PRN for dialyzer flush PRN Sodium Chloride 1,000 mls @ 0 mls/hr 03/27/18 10:21 Ns Inj IV.CONT .Q0M PRN hypotension / volume replace As Directed Lactated Ringer's 1,000 mls @ 30 mls/hr 03/28/18 13:45 Lr 1000 Ml Inj IV.SIG 03/29/18 13:44 .Q24H DANNY Sodium Chloride 500 mls @ 30 mls/hr 03/28/18 14:00 Ns Inj IV.SIG .Q10H DANNY Lorazepam 1 mg 03/27/18 18:18 03/29/18 10:32 Ativan Inj IV.PUSH 1 mg Q2H PRN Administration SEVERE AGITATION Mannitol 12.5 gm 03/27/18 10:21 Mannitol Inj IV.PUSH UNSCH PRN hypotension / volume replace Morphine Sulfate 2 mg 03/25/18 23:54 03/26/18 04:30 Morphine Inj IV.PUSH 2 mg Q4H PRN Administration PAIN SCALE 6 TO 10 Nitroglycerin 0.4 mg 03/27/18 10:21 Nitrostat Sl SL Q5M PRN CHEST PAIN Non-Formulary Medication 25 mg 03/29/18 12:45 Carbidopa [Carbidopa] PO Q6H DANNY Ondansetron HCl 4 mg 03/27/18 10:21 Zofran Inj IV.PUSH UNSCH PRN NAUSEA OR VOMITING Sodium Chloride 5 ml 03/27/18 10:21 Ns Flush IV.FLUSH PRN PRN flush each lumen during HD Sodium Chloride 0 ml 03/27/18 12:17 Ns Flush IV.FLUSH PRN PRN SEE DOSE INSTRUCTIONS Sodium Chloride 2 ml 03/28/18 21:00 03/29/18 09:19 Ns Flush IV.FLUSH Not Given BID DANNY Sodium Chloride 2 ml 03/28/18 13:44 Ns Flush IV.FLUSH PRN PRN FLUSH AFTER USING IV ACCESS Objective Remarks: Abd:soft,nt,nd Bladder not distended 03/28 Abd:soft,nt,nd Bladder not distended 03/29 Abd:soft,nt,nd Bladder not distended Bhakta blood tinged. Assessment and Plan - Plan 77 y.o male admitted with abdominal pain; ARF and elevated PSA Maintain bhakta drainage for now CT scan later today Nephrology consulted. 03/28 77y.o. male with ARF and bilateral hydro with elevated PSA Will plan for cysto with b/l RPR's today in OR with possible stent insertion D/W pt's 03/29 77y.o. male with ARF and bilateral hydro with elevated PSA S/P cysto with b/l RPR's with b/l stent insertion Creatinine down to 3.9 today. Had dialysis recently. Follow u/o. Maintain bhakta catheter. Irrigate prn.
[2018-03-29 15:05] LABS: Baso % (Auto) 0.1 % (0.0-2.0); Hematocrit 35.2 % (39.0-51.0); Lymph # (Auto) 0.8 th/mm3 (1.0-4.8); Lymph % (Auto) 6.8 % (9.0-44.0); Mean Corpuscular Hemoglobin 32.8 pg (27.0-34.0); Mean Corpuscular Volume 96.5 fL (80.0-100.0); Mean Platelet Volume 8.5 fL (7.0-11.0); Mono # (Auto) 0.9 th/mm3 (0.0-0.9); Mono % (Auto) 6.9 % (0.0-8.0); Neut # (Auto) 10.7 th/mm3 (1.8-7.7); Neut % (Auto) 86.2 % (16.0-70.0); Red Blood Count 3.65 mil/mm3 (4.50-5.90); Red Cell Distribution Width 12.5 % (11.6-17.2)
[2018-03-29 15:06] LABS: White Blood Count 11.9 th/mm3 (4.0-11.0)
[2018-03-29 15:07] LABS: Platelet Count 95 th/mm3 (150-450)
[2018-03-29 15:08] LABS: Platelet Morphology Clumped (Normal)
[2018-03-29] MEDS ORDERED: dilTIAZem 30 MG Tablet PO STA (17:04)
[2018-03-29] MEDS ORDERED: dilTIAZem Inj 125 MG in Sodium Chlor 0.9% Inj 100 ML IV.CONT PRN (17:05)
[2018-03-29] MEDS: Gabapentin 100 MG Capsule PO SCH (20:34)
[2018-03-30] MEDS ORDERED: dilTIAZem Inj 125 MG in Sodium Chlor 0.9% Inj 100 ML IV.CONT PRN (01:11)
[2018-03-30] MEDS: dilTIAZem 30 MG Tablet PO SCH ×3 (06:25→17:46)
[2018-03-30 08:05] LABS: Baso % (Auto) 0.1 % (0.0-2.0); Eos % (Auto) 0.5 % (0.0-4.0); Hematocrit 33.9 % (39.0-51.0); Hemoglobin 11.8 gm/dL (13.0-17.0); Lymph # (Auto) 0.5 th/mm3 (1.0-4.8); Lymph % (Auto) 4.6 % (9.0-44.0); Mean Corpuscular HGB Conc 34.7 % (32.0-36.0); Mean Corpuscular Hemoglobin 33.7 pg (27.0-34.0); Mean Corpuscular Volume 97.1 fL (80.0-100.0); Mean Platelet Volume 9.2 fL (7.0-11.0); Mono # (Auto) 0.7 th/mm3 (0.0-0.9); Mono % (Auto) 6.5 % (0.0-8.0); Neut # (Auto) 9.2 th/mm3 (1.8-7.7); Neut % (Auto) 88.3 % (16.0-70.0); Red Blood Count 3.49 mil/mm3 (4.50-5.90); Red Cell Distribution Width 12.7 % (11.6-17.2)
[2018-03-30 08:34] LABS: Calcium 8.3 mg/dL (8.5-10.1); Carbon Dioxide 28.4 meq/L (21.0-32.0); Potassium 3.4 meq/L (3.5-5.1)
[2018-03-30 08:53] LABS: Platelet Count 111 th/mm3 (150-450); White Blood Count 9.1 th/mm3 (4.0-11.0)
[2018-03-30 08:55] LABS: Platelet Morphology Clumped (Normal)
--- NOTE | 2018-03-30 09:33 | P.PNIM ---
Subjective Interval history: pt agitated overight moved to [facility] for aflutter/rvr converted overnight. off gtt. Physical Exam Vital signs: Last Vital Signs Temp 97.8 F 03/30/18 04:00 Pulse 87 03/30/18 07:31 Resp 20 03/30/18 07:31 BP 151/80 H 03/30/18 04:00 Pulse Ox 97 03/30/18 07:31 Narrative: cooperative. still confused heart reg lung course bs abd s/nt ext no edema restrained. bhakta. Results Labs CBC & Chem 7: 03/30/18 06:03 03/30/18 06:03 Assessment and Plan Assessment (1) Acute kidney injury: Code(s): N17.9 - Acute kidney failure, unspecified Status: Acute (2) Bilateral hydronephrosis: Code(s): N13.30 - Unspecified hydronephrosis Status: Acute Plan DAINA with bilateral hydro and severe right abdomen and flank pain. - Concern for perinephric stranding and fluid collection adjacent to right kidney. - Pt was seen by urology and prostate is "rock hard." Concern for prostate ca and likely some obstruction. - PSA elevated at 159 - Pt underwent Cystoscopy, right retrograde pyelogram, right double-J stent insertion with left double-J stent insertion on 03/28/[address] Griffith - Renal function worsened on 03/27 with Creatinine over 6 and vascath and HD initiated 03/27. Cr on 03/28/18 increased again to 7.30 - Pt developed severe agitation/delirium at the end of HD. unclear etiology. ? HD related - Pt had second HD on 03/28/18 and responded better and is clinically improving - His Cr contiues to trend down aflutter/rvr likely stress induced converted overnight with cardizem gtt gtt stopped and converted to po diltiazem monitor. Pulmonary edema related to daina - CXR (03/28/18) --> fluid overload - Improving after HD - Cont. scheduled Duonebs delirium /psychosis felt related to acute medical condition daina restrained. 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
[2018-03-30] MEDS: Heparin 10,000 UNITS/10 ML Vial (for IV use) OTHER PRN (10:54)
--- NOTE | 2018-03-30 10:59 | P.PNNP ---
Subjective Interval history: Patient seen during hemodialysis he has cough and congestion Physical Exam Vital signs: Vital Signs 03/29/18 12:00 03/29/18 16:00 03/29/18 16:45 Temperature 98.2 F 98.3 F 98.2 F Pulse Rate 85 117 H 142 H Respiratory Rate 18 20 20 Blood Pressure 163/74 H 165/85 H 162/74 H Pulse Oximetry 98 100 03/29/18 18:40 03/29/18 18:50 03/29/18 19:00 Temperature Pulse Rate 155 H 154 H 154 H Respiratory Rate 16 16 Blood Pressure 145/98 H 148/90 H Pulse Oximetry 98 98 03/29/18 19:48 03/29/18 20:00 03/29/18 21:00 Temperature 98.9 F Pulse Rate 156 H 136 H Respiratory Rate 18 Blood Pressure 130/84 Pulse Oximetry 95 96 03/29/18 22:00 03/29/18 23:00 03/30/18 00:00 Temperature 98.6 F Pulse Rate 128 H 85 86 Respiratory Rate 17 Blood Pressure 141/81 H Pulse Oximetry 94 L 03/30/18 01:00 03/30/18 02:00 03/30/18 03:00 Temperature Pulse Rate 87 73 77 Respiratory Rate Blood Pressure Pulse Oximetry 03/30/18 03:37 03/30/18 03:39 03/30/18 04:00 Temperature 97.8 F Pulse Rate 75 78 Respiratory Rate 16 17 Blood Pressure 151/80 H Pulse Oximetry 94 L 93 L 03/30/18 05:00 03/30/18 06:00 03/30/18 07:00 Temperature Pulse Rate 77 78 73 Respiratory Rate Blood Pressure Pulse Oximetry 03/30/18 07:31 03/30/18 08:00 03/30/18 09:00 Temperature Pulse Rate 87 78 76 Respiratory Rate 20 Blood Pressure Pulse Oximetry 97 03/30/18 10:00 Temperature Pulse Rate 96 H Respiratory Rate Blood Pressure Pulse Oximetry Intake & Output 03/29/18 03/30/18 03/30/18 18:59 06:59 18:59 Intake Total 120 / 120 240 / 240 Output Total 1000 / 1000 1550 / 1550 Balance -880 / -880 -1310 / -1310 Weight 47.1 kg Intake: Oral 120 / 120 240 / 240 Output: Urine 1000 / 1000 1550 / 1550 Other: Date of Last Bowel Movement 03/28/18 # Bowel Movements 0 Narrative: GENERAL: Well-nourished, well-developed patient. SKIN: Warm and dry. HEAD: Normocephalic. EYES: No scleral icterus. No injection or drainage. NECK: Supple, trachea midline. No JVD or lymphadenopathy. CARDIOVASCULAR: Regular rate and rhythm without murmurs, gallops, or rubs. RESPIRATORY: Breath diminished air entry at bases with rhonchi GASTROINTESTINAL: Abdomen soft, non-tender, nondistended. EXTREMITIES: Mild edema NEUROLOGICAL: Awake, alert, and oriented x 3. Non-focal. - Urinary Catheter Management Indwelling Urethral Catheter Cath placed during this visit: yes, but has since been removed by the nurse Reason for continuing: Hourly intake/output Insertion date: 03/28/18 Insertion time: 09:15 Removal date: 03/28/18 Removal time: 13:47 Assessment and Plan - Assessment (1) Acute kidney injury Code(s): N17.9 - Acute kidney failure, unspecified Status: Acute Plan: Acute renal failure on hemodialysis, he had a temporary Vas-Cath and doing dialysis ultrafiltration of 2.5 L today tolerating it well Encouraged him to cough and clear his throat Continue to monitor Dr. Grossman is following (2) Bilateral hydronephrosis Code(s): N13.30 - Unspecified hydronephrosis Status: Acute Plan: Urology consulted, patient had cystoscopy, right retrograde pyelogram, right double-J stent insertion with left double-J stent insertion.
[2018-03-30] MEDS: Sodium Chloride 0.9% 2 ML Flush BID IV.FLUSH SCH (12:31)
[2018-03-30] MEDS: Sodium Bicarbonate 8.4% Inj 75 MEQ in Dextrose 5%/NaCl 0.45% Inj 1,000 ML IV.CONT SCH (17:45)
--- NOTE | 2018-03-30 17:49 | ECG ---
Date Performed: 03/29/2018 Time Performed: 16:32:13 PTAGE: 77 years EKG: ATRIAL FLUTTER/TACHYCARDIA WITH RAPID VENTRICULAR RESPONSE PROBABLE INFERIOR MYOCARDIAL INF ARCTION , OF INDETERMINATE AGE ABNORMAL ECG PREVIOUS TRACING : 03/25/2018 23.01 DOCTOR: Miller Ny Interpretating Date/Time 03/30/2018 17:48:47
[2018-03-31] MEDS: Gabapentin 100 MG Capsule PO SCH ×2 (03:01→20:02)
[2018-03-31] MEDS: Sodium Chloride 0.9% 2 ML Flush BID IV.FLUSH SCH ×3 (03:01→20:01)
[2018-03-31] MEDS: dilTIAZem 30 MG Tablet PO SCH ×6 (03:02→23:00)
[2018-03-31 07:14] LABS: Calcium 8.7 mg/dL (8.5-10.1); Carbon Dioxide 28.6 meq/L (21.0-32.0); Magnesium 1.9 mg/dL (1.5-2.5); Potassium 3.2 meq/L (3.5-5.1)
--- NOTE | 2018-03-31 09:44 | P.PNIM ---
Subjective Interval history: pt still confused. hallucinating. Physical Exam Vital signs: Last Vital Signs Temp 98.6 F 03/30/18 15:35 Pulse 99 H 03/31/18 07:51 Resp 19 03/31/18 07:51 BP 145/88 H 03/31/18 07:37 Pulse Ox 94 L 03/31/18 07:51 Narrative: cooperative. still confused heart reg lung course bs abd s/nt ext no edema restrained. bhakta. bloody urine Results Labs CBC & Chem 7: 03/30/18 06:03 03/31/18 05:09 Assessment and Plan Assessment (1) Acute kidney injury: Code(s): N17.9 - Acute kidney failure, unspecified Status: Acute (2) Bilateral hydronephrosis: Code(s): N13.30 - Unspecified hydronephrosis Status: Acute Plan DAINA with bilateral hydro and severe right abdomen and flank pain. - Concern for perinephric stranding and fluid collection adjacent to right kidney. - Pt was seen by urology and prostate is "rock hard." Concern for prostate ca and likely some obstruction. - PSA elevated at 159 - Pt underwent Cystoscopy, right retrograde pyelogram, right double-J stent insertion with left double-J stent insertion on 03/28/[address] Griffith - Renal function worsened on 03/27 with Creatinine over 6 and vascath and HD initiated 03/27. Cr on 03/28/18 increased again to 7.30 - Pt developed severe agitation/delirium at the end of HD. unclear etiology. ? HD related. doubt cva. likely metabolic. exclude infection - Pt had second HD on 03/28/18 and responded better and is clinically improving - His Cr contiues to trend down aflutter/rvr likely stress induced converted with cardizem gtt gtt stopped and converted to po diltiazem monitor. ADDENDUM: PT HAD REFUSED HIS PO DILTIAZEM AND WENT BACK INTO AFIB/FLUTTER RVR. RESUME CARDIZEM GTT. Pulmonary edema related to daina - CXR (03/28/18) --> fluid overload - Improving after HD - Cont. scheduled Duonebs delirium /psychosis felt related to acute medical condition daina restrained. wean as tolerated low dose risperdal ct head and check u/a today. 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
[2018-03-31] MEDS: dilTIAZem Inj 125 MG in Sodium Chlor 0.9% Inj 100 ML IV.CONT PRN ×2 (10:59→18:38)
--- NOTE | 2018-03-31 12:44 | P.PNNP ---
Physical Exam Vital signs: Vital Signs 03/30/18 13:00 03/30/18 14:00 03/30/18 15:00 Temperature Pulse Rate 104 H 96 H 96 H Respiratory Rate Blood Pressure Pulse Oximetry 03/30/18 15:35 03/30/18 16:00 03/30/18 17:00 Temperature 98.6 F Pulse Rate 90 92 H 100 H Respiratory Rate 18 Blood Pressure 113/62 Pulse Oximetry 96 03/30/18 17:01 03/30/18 18:00 03/30/18 19:00 Temperature Pulse Rate 99 H 100 H 98 H Respiratory Rate 22 Blood Pressure Pulse Oximetry 03/30/18 20:00 03/30/18 20:07 03/30/18 21:00 Temperature Pulse Rate 96 H 97 H 98 H Respiratory Rate 20 15 Blood Pressure 111/65 Pulse Oximetry 92 L 94 L 03/30/18 22:00 03/30/18 23:00 03/31/18 00:00 Temperature Pulse Rate 96 H 88 102 H Respiratory Rate 18 Blood Pressure Pulse Oximetry 95 03/31/18 01:00 03/31/18 02:00 03/31/18 03:00 Temperature Pulse Rate 100 H 90 100 H Respiratory Rate Blood Pressure Pulse Oximetry 03/31/18 04:00 03/31/18 05:00 03/31/18 06:00 Temperature Pulse Rate 91 H 92 H 92 H Respiratory Rate Blood Pressure Pulse Oximetry 03/31/18 07:00 03/31/18 07:37 03/31/18 07:51 Temperature Pulse Rate 106 H 98 H 99 H Respiratory Rate 18 19 Blood Pressure 145/88 H Pulse Oximetry 96 94 L 03/31/18 08:00 03/31/18 09:00 03/31/18 09:41 Temperature Pulse Rate 100 H 108 H 155 H Respiratory Rate Blood Pressure Pulse Oximetry 03/31/18 10:30 03/31/18 11:39 Temperature 98.0 F Pulse Rate 159 H 145 H Respiratory Rate 18 Blood Pressure 126/77 Pulse Oximetry 985 H Intake & Output 03/30/18 03/31/18 03/31/18 18:59 06:59 18:59 Intake Total 1575 / 1575 120 / 120 Output Total 3300 / 3300 375 / 375 Balance -1725 / -1725 -255 / -255 Weight 46 kg Intake: IV 1075 / 1075 Sodium Bicarbonate 8.4% Inj 75 1075 / 1075 MEQ In D5W/1/2 NS Inj 1,000 ML @ 42 mls/hr IV.CONT .Q24H [facility] Rx#:[id number] Oral 500 / 500 120 / 120 Output: Hemodialysis Amount 3000 / 3000 Urine Amount (Catheter) 300 / 300 375 / 375 Indwelling Urethral Catheter 300 / 300 375 / 375 Other: Bladder Irrigation Fluid - Amount Instilled Indwelling Urethral Catheter 80 Bladder Irrigation Fluid - Amount Drained Indwelling Urethral Catheter 120 Date of Last Bowel Movement 03/28/18 03/28/18 - Urinary Catheter Management Indwelling Urethral Catheter Cath placed during this visit: yes, but has since been removed by the nurse Reason for continuing: Hourly intake/output Insertion date: 03/28/18 Insertion time: 09:15 Removal date: 03/28/18 Removal time: 13:47 Assessment and Plan - Assessment (1) Acute kidney injury Code(s): N17.9 - Acute kidney failure, unspecified Status: Acute Plan: Acute renal failure history of obstructive uropathyhematuria Hemodialysis was done yesterday 2.5 L taken out Next dialysis will be on Sunday potassium was low and this was replaced Dr. Grossman on tomorrow and will follow (2) Bilateral hydronephrosis Code(s): N13.30 - Unspecified hydronephrosis Status: Acute Plan: Urology consulted, patient had cystoscopy, right retrograde pyelogram, right double-J stent insertion with left double-J stent insertion.
[2018-03-31 13:44] LABS: Bacteria,Urine Moderate /hpf; Bilirubin,Urine Negative (Negative); Glucose,Urine (UA) 50 mg/dL (Negative); Leukocyte Esterase,Urine Moderate (Negative); Nitrite,Urine Negative (Negative); Specific Gravity,Urine 1.014 (1.002-1.035)
[2018-03-31 13:45] LABS: Clarity,Urine Marked (Clear); Color,Urine Red (Yellw/Straw)
[2018-03-31] MEDS: Sodium Bicarbonate 8.4% Inj 75 MEQ in Dextrose 5%/NaCl 0.45% Inj 1,000 ML IV.CONT SCH (18:24)
[2018-04-01] MEDS: Morphine Inj 4 MG/ML Vial IV.PUSH PRN ×2 (01:14→05:41)
[2018-04-01] MEDS: dilTIAZem 30 MG Tablet PO SCH ×3 (06:00→18:47)
[2018-04-01 09:07] LABS: Calcium 8.5 mg/dL (8.5-10.1); Carbon Dioxide 25.3 meq/L (21.0-32.0); Potassium 3.7 meq/L (3.5-5.1)
--- NOTE | 2018-04-01 09:45 | P.PNIM ---
Subjective Interval history: Pt is a 77 y/o M with probable underlying prostate cancer. Pt noted to have elevated PSA several years ago, but declined biopsy. Pt admitted to [place] with ARF and b/l hydronephrosis. Pt underwent cystoscopy with placement of JJ ureteral stents by Dr. Loco Griffith. Pt's Creatinine has markedly improved. However, pt is now confused with agitation likely d/t metabolic encephalopathy. Physical Exam Vital signs: Last Vital Signs Temp 98.8 F 04/01/18 04:00 Pulse 99 H 04/01/18 07:47 Resp 16 04/01/18 07:47 BP 153/76 H 04/01/18 04:00 Pulse Ox 96 04/01/18 07:47 Narrative: cooperative. still confused heart reg lung course bs abd s/nt ext no edema restrained. bhakta. bloody urine Results Labs CBC & Chem 7: 03/30/18 06:03 04/01/18 06:30 Assessment and Plan Assessment (1) Acute kidney injury: Code(s): N17.9 - Acute kidney failure, unspecified Status: Acute (2) Bilateral hydronephrosis: Code(s): N13.30 - Unspecified hydronephrosis Status: Acute Plan DAINA with bilateral hydro and severe right abdomen and flank pain. - Concern for perinephric stranding and fluid collection adjacent to right kidney. - Pt was seen by urology and prostate is "rock hard." Concern for prostate ca and likely some obstruction. - PSA elevated at 159 - Pt underwent Cystoscopy, right retrograde pyelogram, right double-J stent insertion with left double-J stent insertion on 03/28/[address] Griffith - Renal function worsened on 03/27 with Creatinine over 6 and vascath and HD initiated 03/27. Cr on 03/28/18 increased again to 7.30 - Pt developed severe agitation/delirium at the end of HD. unclear etiology. ? HD related. doubt cva. likely metabolic. exclude infection - Pt had second HD on 03/28/18 and responded better and is clinically improving - Creatinine stable - will reviewe case with Urology aflutter/rvr likely stress induced converted with cardizem gtt gtt stopped and converted to po diltiazem - Pt again receiving PO diltiazem with rate control Pulmonary edema related to daina - CXR (03/28/18) --> fluid overload - Improving after HD - Cont. 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
--- NOTE | 2018-04-01 11:14 | P.PNNP ---
Subjective Interval history: Patient was seen, NAD, at bedside. <Rena Riggs - Last Filed: 04/01/18 11:28> Physical Exam Vital signs: Vital Signs 03/31/18 11:39 03/31/18 12:00 03/31/18 13:00 Temperature 98.0 F Pulse Rate 145 H 155 H 96 H Respiratory Rate 18 Blood Pressure 126/77 Pulse Oximetry 985 H 03/31/18 14:00 03/31/18 15:00 03/31/18 16:00 Temperature 99.0 F Pulse Rate 94 H 86 96 H Respiratory Rate 16 Blood Pressure 122/64 Pulse Oximetry 94 L 03/31/18 17:00 03/31/18 18:00 03/31/18 18:30 Temperature Pulse Rate 86 86 103 H Respiratory Rate Blood Pressure Pulse Oximetry 03/31/18 19:00 03/31/18 20:00 03/31/18 20:21 Temperature 98.2 F Pulse Rate 95 H 97 H 85 Respiratory Rate 22 16 Blood Pressure 139/80 Pulse Oximetry 92 L 03/31/18 21:00 03/31/18 21:01 03/31/18 22:00 Temperature Pulse Rate 99 H 98 H Respiratory Rate Blood Pressure Pulse Oximetry 93 L 03/31/18 23:00 03/31/18 23:01 04/01/18 00:00 Temperature 98.6 F Pulse Rate 96 H 96 H 98 H Respiratory Rate 22 Blood Pressure 126/72 Pulse Oximetry 96 04/01/18 00:03 04/01/18 00:59 04/01/18 02:00 Temperature Pulse Rate 96 H 97 H 94 H Respiratory Rate 28 H Blood Pressure Pulse Oximetry 04/01/18 03:00 04/01/18 03:58 04/01/18 04:00 Temperature 98.8 F Pulse Rate 97 H 95 H 95 H Respiratory Rate 22 Blood Pressure 153/76 H Pulse Oximetry 97 04/01/18 04:36 04/01/18 05:00 04/01/18 05:55 Temperature Pulse Rate 94 H 94 H 92 H Respiratory Rate 28 H Blood Pressure Pulse Oximetry 04/01/18 07:47 04/01/18 08:00 Temperature 98.7 F Pulse Rate 99 H 100 H Respiratory Rate 16 24 Blood Pressure 141/87 H Pulse Oximetry 96 97 Intake & Output 03/31/18 04/01/1804/01/19 18:59 06:59 18:59 Intake Total 2200 / 2200 100 / 100 Output Total 300 / 300 400 / 400 Balance 1900 / 1900 -300 / -300 Weight 45.7 kg Intake: IV 1200 / 1200 Sodium Bicarbonate 8.4% Inj 75 1000 / 1000 MEQ In D5W/1/2 NS Inj 1,000 ML @ 42 mls/hr IV.CONT .Q24H [facility] Rx#:[id number] Cardizem Inj 125 MG In NS Inj 100 / 100 100 ML @ 5 MG/HR 5 mls/hr IV. CONT TITRATE PRN Rx#:[id number] Rocephin Inj 1,000 MG In NS Inj 100 / 100 100 ML @ 200 mls/hr IV.SIG Q24H [facility] Rx#:[id number] Oral 1000 / 1000 100 / 100 Output: Urine Amount (Catheter) 300 / 300 400 / 400 Indwelling Urethral Catheter 300 / 300 400 / 400 Other: Date of Last Bowel Movement 03/28/18 # Bowel Movements 0 Narrative: GENERAL: NAD. SKIN: Warm and dry. HEAD: Normocephalic. EYES: No scleral icterus. No injection or drainage. NECK: Supple, trachea midline. No JVD or lymphadenopathy. CARDIOVASCULAR: Regular rate and rhythm without murmurs, gallops, or rubs. RESPIRATORY: Breath sounds diminished at bases. GASTROINTESTINAL: Abdomen soft, non-tender, nondistended. EXTREMITIES: No edema. Patient restrained. NEUROLOGICAL: Awake, confused. - Urinary Catheter Management Indwelling Urethral Catheter Cath placed during this visit: yes, but has since been removed by the nurse Reason for continuing: Hourly intake/output Insertion date: 03/28/18 Insertion time: 09:15 Removal date: 03/28/18 Removal time: 13:47 <Rena Riggs - Last Filed: 04/01/18 11:28> Vital signs: Vital Signs 04/01/18 07:00 04/01/18 07:47 04/01/18 08:00 Temperature 98.7 F Pulse Rate 100 H 99 H 103 H Respiratory Rate 16 24 Blood Pressure 141/87 H Pulse Oximetry 96 97 04/01/18 09:00 04/01/18 10:00 04/01/18 11:00 Temperature Pulse Rate 96 H 98 H 96 H Respiratory Rate Blood Pressure Pulse Oximetry 04/01/18 12:00 04/01/18 12:15 04/01/18 13:00 Temperature 97.9 F Pulse Rate 96 H 98 H 98 H Respiratory Rate 18 20 Blood Pressure 122/82 Pulse Oximetry 100 04/01/18 14:00 04/01/18 15:00 04/01/18 16:00 Temperature Pulse Rate 98 H 100 H 93 H Respiratory Rate Blood Pressure Pulse Oximetry 04/01/18 16:09 04/01/18 16:10 04/01/18 17:00 Temperature 97.8 F Pulse Rate 93 H 91 H 102 H Respiratory Rate 18 20 Blood Pressure 144/86 H Pulse Oximetry 100 04/01/18 19:00 04/01/18 20:00 04/01/18 20:01 Temperature Pulse Rate 97 H 95 H 98 H Respiratory Rate 24 Blood Pressure Pulse Oximetry 97 04/01/18 21:00 04/01/18 21:22 04/01/18 22:00 Temperature 99.8 F H Pulse Rate 96 H 97 H 92 H Respiratory Rate 20 Blood Pressure 139/77 Pulse Oximetry 98 04/01/18 23:00 04/01/18 23:10 04/01/18 23:30 Temperature 97.8 F Pulse Rate 97 H 104 H 104 H Respiratory Rate 20 22 Blood Pressure 110/82 Pulse Oximetry 96 04/02/18 00:00 04/02/18 01:43 04/02/18 03:52 Temperature Pulse Rate 100 H 98 H Respiratory Rate 22 Blood Pressure 130/80 Pulse Oximetry 04/02/18 04:00 Temperature 99.9 F H Pulse Rate 95 H Respiratory Rate 20 Blood Pressure 140/51 L Pulse Oximetry 99 Intake & Output 04/01/18 04/01/18 04/02/18 06:59 18:59 06:59 Intake Total 100 / 100 50 / 50 975 / 975 Output Total 400 / 400 600 / 600 Balance -300 / -300 -550 / -550 975 / 975 Weight 45.7 kg Intake: IV 975 / 975 Sodium Bicarbonate 8.4% Inj 75 975 / 975 MEQ In D5W/1/2 NS Inj 1,000 ML @ 42 mls/hr IV.CONT .Q24H [facility] Rx#:[id number] Oral 100 / 100 50 / 50 Output: Urine Amount (Catheter) 400 / 400 600 / 600 Indwelling Urethral Catheter 400 / 400 600 / 600 Other: Bladder Irrigation Fluid - Amount Instilled Indwelling Urethral Catheter 60 Bladder Irrigation Fluid - Amount Drained Indwelling Urethral Catheter 60 Date of Last Bowel Movement 03/28/18 03/28/18 # Bowel Movements 0 - Urinary Catheter Management Indwelling Urethral Catheter Cath placed during this visit: no <Goyo Haro - Last Filed: 04/02/18 06:03> Assessment and Plan - Assessment (1) Acute kidney injury Code(s): N17.9 - Acute kidney failure, unspecified Status: Acute Plan: Acute renal failure history of obstructive uropathyhematuria. Hemodialysis was done Sunday, 3 L removed. Next dialysis session planned for Sunday pending lab results to see if renal function has improved. If renal function has improved, will hold off on HD. (2) Bilateral hydronephrosis Code(s): N13.30 - Unspecified hydronephrosis Status: Acute Plan: Urology consulted, patient had cystoscopy, right retrograde pyelogram, right double-J stent insertion with left double-J stent insertion. <Rena Riggs - Last Filed: 04/01/18 11:28> - Assessment (1) Acute kidney injury Code(s): N17.9 - Acute kidney failure, unspecified Status: Acute (2) Bilateral hydronephrosis Code(s): N13.30 - Unspecified hydronephrosis Status: Acute - Attending Attestation patient was seen and examined on 04/01/18. Agree with above assessment and plan. <Goyo Haro - Last Filed: 04/02/18 06:03>
[2018-04-01] MEDS: Sodium Chloride 0.9% 2 ML Flush BID IV.FLUSH SCH ×2 (11:42→21:31)
--- NOTE | 2018-04-01 12:43 | P.PNURO ---
Subjective Patient symptoms today: Pt seen and examined. In restraints. Urine bloody. Objective Vital Signs: Vital Signs 03/31/18 13:00 03/31/18 14:00 03/31/18 15:00 Temperature Pulse Rate 96 H 94 H 86 Respiratory Rate Blood Pressure Pulse Oximetry 03/31/18 16:00 03/31/18 17:00 03/31/18 18:00 Temperature 99.0 F Pulse Rate 96 H 86 86 Respiratory Rate 16 Blood Pressure 122/64 Pulse Oximetry 94 L 03/31/18 18:30 03/31/18 19:00 03/31/18 20:00 Temperature 98.2 F Pulse Rate 103 H 95 H 97 H Respiratory Rate 22 Blood Pressure 139/80 Pulse Oximetry 92 L 03/31/18 20:21 03/31/18 21:00 03/31/18 21:01 Temperature Pulse Rate 85 99 H Respiratory Rate 16 Blood Pressure Pulse Oximetry 93 L 03/31/18 22:00 03/31/18 23:00 03/31/18 23:01 Temperature 98.6 F Pulse Rate 98 H 96 H 96 H Respiratory Rate 22 Blood Pressure 126/72 Pulse Oximetry 96 04/01/18 00:00 04/01/18 00:03 04/01/18 00:59 Temperature Pulse Rate 98 H 96 H 97 H Respiratory Rate 28 H Blood Pressure Pulse Oximetry 04/01/18 02:00 04/01/18 03:00 04/01/18 03:58 Temperature Pulse Rate 94 H 97 H 95 H Respiratory Rate Blood Pressure Pulse Oximetry 04/01/18 04:00 04/01/18 04:36 04/01/18 05:00 Temperature 98.8 F Pulse Rate 95 H 94 H 94 H Respiratory Rate 22 28 H Blood Pressure 153/76 H Pulse Oximetry 97 04/01/18 05:55 04/01/18 07:47 04/01/18 08:00 Temperature 98.7 F Pulse Rate 92 H 99 H 100 H Respiratory Rate 16 24 Blood Pressure 141/87 H Pulse Oximetry 96 97 04/01/18 12:00 04/01/18 12:15 Temperature 97.9 F Pulse Rate 100 H 98 H Respiratory Rate 18 20 Blood Pressure 122/82 Pulse Oximetry 100 Intake & Output 03/31/18 04/01/18 04/01/18 18:59 06:59 18:59 Intake Total 2200 / 2200 100 / 100 Output Total 300 / 300 400 / 400 Balance 1900 / 1900 -300 / -300 Weight 45.7 kg Intake: IV 1200 / 1200 Sodium Bicarbonate 8.4% Inj 75 1000 / 1000 MEQ In D5W/1/2 NS Inj 1,000 ML @ 42 mls/hr IV.CONT .Q24H [facility] Rx#:[id number] Cardizem Inj 125 MG In NS Inj 100 / 100 100 ML @ 5 MG/HR 5 mls/hr IV. CONT TITRATE PRN Rx#:[id number] Rocephin Inj 1,000 MG In NS Inj 100 / 100 100 ML @ 200 mls/hr IV.SIG Q24H [facility] Rx#:[id number] Oral 1000 / 1000 100 / 100 Output: Urine Amount (Catheter) 300 / 300 400 / 400 Indwelling Urethral Catheter 300 / 300 400 / 400 Other: Date of Last Bowel Movement 03/28/18 # Bowel Movements 0 Result Diagrams: 03/30/18 06:03 04/01/18 06:30 Medications and IVs: Active Medications Generic Name Dose Route Start Last Admin Trade Name Freq PRN Reason Stop Dose Admin Acetaminophen 650 mg 03/27/18 10:21 Tylenol PO UNSCH PRN SEE LABEL COMMENTS Hydrocodone Bitart/Acetaminophen 2 tab 03/25/18 23:54 03/27/18 09:00 [place] 5/325 PO 2 tab Q6H PRN Administration PAIN SCALE 1 TO 5 Albuterol 1 ampul 03/28/18 08:09 04/01/18 12:13 Duoneb Neb ([facility]) NEB 1 ampul Q4HR NEB [facility]AN[facility] Administration Aspirin 81 mg 03/27/18 09:00 04/01/18 09:56 Aspirin Chew PO Not Given DAILY [facility] Belladonna Alkaloids/Opium 60 mg 03/28/18 14:32 B & O Supp RECTAL Q6HR PRN bladder spasms Carbidopa/Levodopa 1 tab 03/30/18 18:00 04/01/18 12:07 Sinemet 25/100 Mg PO Not Given Q6HR [facility] Clonidine HCl 0.1 mg 03/27/18 10:21 Catapres PO UNSCH PRN SEE LABEL COMMENTS Clonidine HCl 0.2 mg 03/28/18 10:38 Catapres PO Q4HR PRN sbp > 170 Diltiazem HCl 30 mg 03/30/18 06:00 04/01/18 11:57 Cardizem PO 30 mg Q6H [facility] Administration Diphenhydramine HCl 25 mg 03/27/18 10:21 Benadryl PO UNSCH PRN SEE LABEL COMMENTS Gabapentin 100 mg 03/26/18 13:00 03/27/18 07:30 Neurontin PO 100 mg BID@08,13 DANNY Administration Gabapentin 200 mg 03/26/18 21:00 03/31/18 20:02 Neurontin PO 200 mg HS [facility] Administration Gelatin 1 foam 03/27/18 10:21 Gelfoam 12 Mm/7 Mm Topical TOPICAL PRN PRN help stop bleeding from site Gentamicin Sulfate 20 mg 03/27/18 10:21 03/30/18 10:55 Gentamicin Inj OTHER 20 mg WITH DIALYSIS PRN Administration Dwell Gentamycin Lock Haloperidol Lactate 2.5 mg 03/27/18 18:16 Haldol Inj IV.PUSH Q4HR PRN AGITATION Heparin Sodium (Porcine) 1,000 units 03/27/18 10:21 03/30/18 10:54 Heparin Inj OTHER 1,000 units WITH DIALYSIS PRN Administration Dwell Heparin to Fill Catheter Heparin Sodium (Porcine) 8,000 units 03/27/18 10:21 Heparin Inj OTHER WITH DIALYSIS PRN for machine prime Heparin Sodium (Porcine) 0 unit 03/27/18 12:17 Heparin Central Flush IV.FLUSH DAILY PRN SEE DOSE INSTRUCTIONS Diltiazem HCl 125 mg/ Sodium 125 mls @ 5 mls/hr 03/31/18 11:00 03/31/18 18:38 Chloride IV.CONT 5 mg/hr TITRATE PRN 5 mls/hr Per Protocol Administration Protocol 5 MG/HR Ceftriaxone Sodium 1,000 mg/ 100 mls @ 200 mls/hr 03/31/18 14:00 03/31/18 17: 00 Sodium Chloride IV.SIG Infused Q24H [facility] Infusion Sodium Bicarbonate 75 meq/ 1,075 mls @ 42 mls/hr 03/27/18 10:15 03/31/18 18: 24 Dextrose/Sodium Chloride IV.CONT 42 mls/hr .Q24H [facility] Administration Albumin Human 100 mls @ 60 mls/hr 03/27/18 10:21 Flexbumin 25% Inj IV.SIG WITH DIALYSIS PRN hypotension / volume replace Sodium Chloride 1,000 mls @ 0 mls/hr 03/27/18 10:21 03/30/18 10:55 Ns Inj OTHER 300 mls/hr .Q0M PRN Administration for prime and rinse back As Directed Sodium Chloride 1,000 mls @ 200 mls/hr 03/27/18 10:21 Ns Inj OTHER .Q5H PRN for dialyzer flush PRN Sodium Chloride 1,000 mls @ 0 mls/hr 03/27/18 10:21 Ns Inj IV.CONT .Q0M PRN hypotension / volume replace As Directed Sodium Chloride 500 mls @ 30 mls/hr 03/28/18 14:00 Ns Inj IV.SIG .Q10H [facility] Lorazepam 1 mg 03/27/18 18:18 04/01/18 01:41 Ativan Inj IV.PUSH 1 mg Q2H PRN Administration SEVERE AGITATION Mannitol 12.5 gm 03/27/18 10:21 Mannitol Inj IV.PUSH UNSCH PRN hypotension / volume replace Morphine Sulfate 2 mg 03/25/18 23:54 04/01/18 05:41 Morphine Inj IV.PUSH 2 mg Q4H PRN Administration PAIN SCALE 6 TO 10 Nitroglycerin 0.4 mg 03/27/18 10:21 Nitrostat Sl SL Q5M PRN CHEST PAIN Ondansetron HCl 4 mg 03/27/18 10:21 Zofran Inj IV.PUSH UNSCH PRN NAUSEA OR VOMITING Risperidone 0.25 mg 03/29/18 21:00 04/01/18 11:58 Risperdal PO 0.25 mg BID [facility] Administration Sodium Chloride 5 ml 03/27/18 10:21 Ns Flush IV.FLUSH PRN PRN flush each lumen during HD Sodium Chloride 0 ml 03/27/18 12:17 Ns Flush IV.FLUSH PRN PRN SEE DOSE INSTRUCTIONS Sodium Chloride 2 ml 03/28/18 21:00 04/01/18 11:42 Ns Flush IV.FLUSH 2 ml BID [facility] Administration Sodium Chloride 2 ml 03/28/18 13:44 Ns Flush IV.FLUSH PRN PRN FLUSH AFTER USING IV ACCESS Objective Remarks: Abd:soft,nt,nd Bladder not distended 03/28 Abd:soft,nt,nd Bladder not distended 03/29 Abd:soft,nt,nd Bladder not distended Bhakta blood tinged. 04/01 Abd:soft,nt,nd Bhakta: bloody Assessment and Plan - Plan 77 y.o male admitted with abdominal pain; ARF and elevated PSA Maintain bhakta drainage for now CT scan later today Nephrology consulted. 03/28 77y.o. male with ARF and bilateral hydro with elevated PSA Will plan for cysto with b/l RPR's today in [place] with possible stent insertion D/W pt's 03/29 77y.o. male with ARF and bilateral hydro with elevated PSA S/P cysto with b/l RPR's with b/l stent insertion Creatinine down to 3.9 today. Had dialysis recently. Follow u/o. Maintain bhakta catheter. Irrigate prn. 04/01 77 y.o male with ARF and bilateral hydro s/p b/l JJ stent insertion Creatinine continues to improve s/p b/l Jj stent insertion Maintain bhakta catheter and irrigate please
--- NOTE | 2018-04-01 15:24 | CT ---
EXAM DATE: 04/01/2018 3:19 PM EST AGE/SEX: 77 years / Male INDICATIONS: Altered mental status. CLINICAL DATA: This is the patient's initial encounter. Patient reports that signs and symptoms have been present for 1 day and indicates a pain score of 0/10. MEDICAL/SURGICAL HISTORY: Spinal stenosis. Cardiovascular disease. [place], bleeding ulcer CABG. herni a repair RADIATION DOSE: 66.34 CTDI (mGy) COMPARISON: [facility], CT BRAIN W/O CONTRAST, 06/26/2017. . TECHNIQUE: CT of the head without contrast. Using automated exposure control and adjustment of the mA and/or kV according to patient size, radiation dose was kept as low as reasonably achievable to ob tain optimal diagnostic quality images. DICOM format image data is available electronically for revi ew and comparison. FINDINGS: There is central and cortical atrophy with dilatation of ventricular and sulcal spaces. There is no parenchymal hemorrhage, acute infarction or mass lesion identified. There are no extra-axial fluid c ollections appreciated. Periventricular white matter changes are noted. The posterior fossa is unrem arkable with midline fourth ventricle. The portion of the orbits and paranasal sinuses visualized are unremarkable. CONCLUSION: Atrophy, otherwise negative for an acute process. Edy Almonte MD FACR . Electronically signed by: Edy Almonte MD Board Certified Radiologist 04/01/2018 3:23 PM EST
[2018-04-01] MEDS: Gabapentin 100 MG Capsule PO SCH (21:30)
[2018-04-01] MEDS: Sodium Bicarbonate 8.4% Inj 75 MEQ in Dextrose 5%/NaCl 0.45% Inj 1,000 ML IV.CONT SCH (21:36)
[2018-04-02] MEDS: dilTIAZem 30 MG Tablet PO SCH ×4 (01:55→17:57)
[2018-04-02 07:53] LABS: Albumin 2.9 g/dL (3.4-5.0); Calcium 8.9 mg/dL (8.5-10.1); Carbon Dioxide 28.1 meq/L (21.0-32.0); Phosphorus 2.5 mg/dL (2.5-4.9); Potassium 3.2 meq/L (3.5-5.1)
--- NOTE | 2018-04-02 09:02 | P.PNURO ---
Subjective Patient symptoms today: Pt seen and examined. Attempted to pull out bhakta last night. Still confused. Objective Vital Signs: Vital Signs 04/01/18 10:00 04/01/18 11:00 04/01/18 12:00 Temperature 97.9 F Pulse Rate 98 H 96 H 96 H Respiratory Rate 18 Blood Pressure 122/82 Pulse Oximetry 100 04/01/18 12:15 04/01/18 13:00 04/01/18 14:00 Temperature Pulse Rate 98 H 98 H 98 H Respiratory Rate 20 Blood Pressure Pulse Oximetry 04/01/18 15:00 04/01/18 16:00 04/01/18 16:09 Temperature Pulse Rate 100 H 93 H 93 H Respiratory Rate 18 Blood Pressure Pulse Oximetry 04/01/18 16:10 04/01/18 17:00 04/01/18 19:00 Temperature 97.8 F Pulse Rate 91 H 102 H 97 H Respiratory Rate 20 Blood Pressure 144/86 H Pulse Oximetry 100 04/01/18 20:00 04/01/18 20:01 04/01/18 21:00 Temperature Pulse Rate 95 H 98 H 96 H Respiratory Rate 24 Blood Pressure Pulse Oximetry 97 04/01/18 21:22 04/01/18 22:00 04/01/18 23:00 Temperature 99.8 F H Pulse Rate 97 H 92 H 97 H Respiratory Rate 20 Blood Pressure 139/77 Pulse Oximetry 98 04/01/18 23:10 04/01/18 23:30 04/02/18 00:00 Temperature 97.8 F Pulse Rate 104 H 104 H 100 H Respiratory Rate 20 22 Blood Pressure 110/82 Pulse Oximetry 96 04/02/18 01:00 04/02/18 01:43 04/02/18 02:00 Temperature Pulse Rate 102 H 98 H Respiratory Rate Blood Pressure 130/80 Pulse Oximetry 04/02/18 03:00 04/02/18 03:52 04/02/18 04:00 Temperature 99.9 F H Pulse Rate 98 H 98 H 108 H Respiratory Rate 22 20 Blood Pressure 140/51 L Pulse Oximetry 99 04/02/18 05:00 04/02/18 06:00 04/02/18 07:00 Temperature Pulse Rate 100 H 92 H 98 H Respiratory Rate 16 Blood Pressure 151/75 H Pulse Oximetry 96 04/02/18 07:41 Temperature Pulse Rate 96 H Respiratory Rate 20 Blood Pressure Pulse Oximetry 96 Intake & Output 04/01/18 04/02/18 04/02/18 18:59 06:59 18:59 Intake Total 50 / 50 1075 / 1075 Output Total 600 / 600 600 / 600 Balance -550 / -550 475 / 475 Weight 45.5 kg Intake: IV 975 / 975 Sodium Bicarbonate 8.4% Inj 75 975 / 975 MEQ In D5W/1/2 NS Inj 1,000 ML @ 42 mls/hr IV.CONT .Q24H [facility] Rx#:[id number] Oral 50 / 50 100 / 100 Output: Urine Amount (Catheter) 600 / 600 600 / 600 Indwelling Urethral Catheter 600 / 600 600 / 600 Other: Bladder Irrigation Fluid - Amount Instilled Indwelling Urethral Catheter 60 30 Bladder Irrigation Fluid - Amount Drained Indwelling Urethral Catheter 60 Date of Last Bowel Movement 03/28/18 03/28/18 Result Diagrams: 03/30/18 06:03 04/02/18 05:23 Imaging: Impressions Head CT 04/01/18 00:00 CONCLUSION: Atrophy, otherwise negative for an acute process. Edy Almonte MD FACR . Medications and IVs: Active Medications Generic Name Dose Route Start Last Admin Trade Name Freq PRN Reason Stop Dose Admin Acetaminophen 650 mg 03/27/18 10:21 Tylenol PO UNSCH PRN SEE LABEL COMMENTS Hydrocodone Bitart/Acetaminophen 2 tab 03/25/18 23:54 03/27/18 09:00 [place] 5/325 PO 2 tab Q6H PRN Administration PAIN SCALE 1 TO 5 Albuterol 1 ampul 03/28/18 08:09 04/02/18 07:40 Duoneb Neb ([facility]) NEB 1 ampul Q4HR [facility]B [facility] Administration Aspirin 81 mg 03/27/18 09:00 04/01/18 09:56 Aspirin Chew PO Not Given DAILY [facility] Belladonna Alkaloids/Opium 60 mg 03/28/18 14:32 B & O Supp RECTAL Q6HR PRN bladder spasms Carbidopa/Levodopa 1 tab 03/30/18 18:00 04/02/18 05:00 Sinemet 25/100 Mg PO 1 tab Q6HR [facility] Administration Clonidine HCl 0.1 mg 03/27/18 10:21 Catapres PO UNSCH PRN SEE LABEL COMMENTS Clonidine HCl 0.2 mg 03/28/18 10:38 Catapres PO Q4HR PRN sbp > 170 Diltiazem HCl 30 mg 03/30/18 06:00 04/02/18 05:00 Cardizem PO 30 mg Q6H [facility] Administration Diphenhydramine HCl 25 mg 03/27/18 10:21 Benadryl PO UNSCH PRN SEE LABEL COMMENTS Gabapentin 100 mg 03/26/18 13:00 03/27/18 07:30 Neurontin PO 100 mg BID@08,13 [facility]ANNY Administration Gabapentin 200 mg 03/26/18 21:00 04/01/18 21:30 Neurontin PO 100 mg HS [facility]AN[facility] Administration Gelatin 1 foam 03/27/18 10:21 Gelfoam 12 Mm/7 Mm Topical TOPICAL PRN PRN help stop bleeding from site Gentamicin Sulfate 20 mg 03/27/18 10:21 03/30/18 10:55 Gentamicin Inj OTHER 20 mg WITH DIALYSIS PRN Administration Dwell Gentamycin Lock Haloperidol Lactate 2.5 mg 03/27/18 18:16 Haldol Inj IV.PUSH Q4HR PRN AGITATION Heparin Sodium (Porcine) 1,000 units 03/27/18 10:21 03/30/18 10:54 Heparin Inj OTHER 1,000 units WITH DIALYSIS PRN Administration Dwell Heparin to Fill Catheter Heparin Sodium (Porcine) 8,000 units 03/27/18 10:21 Heparin Inj OTHER WITH DIALYSIS PRN for machine prime Heparin Sodium (Porcine) 0 unit 03/27/18 12:17 Heparin Central Flush IV.FLUSH DAILY PRN SEE DOSE INSTRUCTIONS Diltiazem HCl 125 mg/ Sodium 125 mls @ 5 mls/hr 03/31/18 11:00 03/31/18 18:38 Chloride IV.CONT 5 mg/hr TITRATE PRN 5 mls/hr Per Protocol Administration Protocol 5 MG/HR Ceftriaxone Sodium 1,000 mg/ 100 mls @ 200 mls/hr 03/31/18 14:00 04/01/18 16: 35 Sodium Chloride IV.SIG 0 mls/hr Q24H [facility] Infusion Dextrose/Sodium Chloride 1,000 mls @ 42 mls/hr 04/02/18 08:22 D5w/1/2 Ns Inj IV.CONT .[id number] [facility] Albumin Human 100 mls @ 60 mls/hr 03/27/18 10:21 Flexbumin 25% Inj IV.SIG WITH DIALYSIS PRN hypotension / volume replace Sodium Chloride 1,000 mls @ 0 mls/hr 03/27/18 10:21 03/30/18 10:55 Ns Inj OTHER 300 mls/hr .Q0M PRN Administration for prime and rinse back As Directed Sodium Chloride 1,000 mls @ 200 mls/hr 03/27/18 10:21 Ns Inj OTHER .Q5H PRN for dialyzer flush PRN Sodium Chloride 1,000 mls @ 0 mls/hr 03/27/18 10:21 Ns Inj IV.CONT .Q0M PRN hypotension / volume replace As Directed Sodium Chloride 500 mls @ 30 mls/hr 03/28/18 14:00 Ns Inj IV.SIG .Q10H [facility] Lorazepam 1 mg 03/27/18 18:18 04/02/18 01:55 Ativan Inj IV.PUSH 1 mg Q2H PRN Administration SEVERE AGITATION Mannitol 12.5 gm 03/27/18 10:21 Mannitol Inj IV.PUSH UNSCH PRN hypotension / volume replace Morphine Sulfate 2 mg 03/25/18 23:54 04/01/18 05:41 Morphine Inj IV.PUSH 2 mg Q4H PRN Administration PAIN SCALE 6 TO 10 Nitroglycerin 0.4 mg 03/27/18 10:21 Nitrostat Sl SL Q5M PRN CHEST PAIN Ondansetron HCl 4 mg 03/27/18 10:21 Zofran Inj IV.PUSH UNSCH PRN NAUSEA OR VOMITING Risperidone 0.25 mg 03/29/18 21:00 04/02/18 01:55 Risperdal PO 0.25 mg BID DANNY Administration Sodium Chloride 5 ml 03/27/18 10:21 Ns Flush IV.FLUSH PRN PRN flush each lumen during HD Sodium Chloride 0 ml 03/27/18 12:17 Ns Flush IV.FLUSH PRN PRN SEE DOSE INSTRUCTIONS Sodium Chloride 2 ml 03/28/18 21:00 04/01/18 21:31 Ns Flush IV.FLUSH 2 ml BID DANNY Administration Sodium Chloride 2 ml 03/28/18 13:44 Ns Flush IV.FLUSH PRN PRN FLUSH AFTER USING IV ACCESS Objective Remarks: Abd:soft,nt,nd Bladder not distended 2 Abd:soft,nt,nd Bladder not distended 2 Abd:soft,nt,nd Bladder not distended Bhakta blood tinged. 04/01 Abd:soft,nt,nd Bhakta: bloody 04/02 Abd:soft,nt,nd Bhakta: blood tinged Assessment and Plan - Plan 77 y.o male admitted with abdominal pain; ARF and elevated PSA Maintain bhakta drainage for now CT scan later today Nephrology consulted. 03/28 77y.o. male with ARF and bilateral hydro with elevated PSA Will plan for cysto with b/l RPR's today in OR with possible stent insertion D/W pt's 03/29 77y.o. male with ARF and bilateral hydro with elevated PSA S/P cysto with b/l RPR's with b/l stent insertion Creatinine down to 3.9 today. Had dialysis recently. Follow u/o. Maintain bhakta catheter. Irrigate prn. 04/01 77 y.o male with ARF and bilateral hydro s/p b/l JJ stent insertion Creatinine continues to improve s/p b/l Jj stent insertion Maintain bhakta catheter and irrigate please 04/02 77 y.o male with ARF and bilateral hydro s/p b/l JJ stent insertion Creatinine continues to improve s/p b/l Jj stent insertion; down to 2.0 Maintain bhakta catheter and irrigate please
--- NOTE | 2018-04-02 09:39 | P.PNNP ---
Subjective Interval history: remains confused and disoriented. Renal function has improved. No need for dialysis. Potassium replacement ordered, discontinued bicarbonate drip. Physical Exam Vital signs: Vital Signs 04/01/18 10:00 04/01/18 11:00 04/01/18 12:00 Temperature 97.9 F Pulse Rate 98 H 96 H 96 H Respiratory Rate 18 Blood Pressure 122/82 Pulse Oximetry 100 04/01/18 12:15 04/01/18 13:00 04/01/18 14:00 Temperature Pulse Rate 98 H 98 H 98 H Respiratory Rate 20 Blood Pressure Pulse Oximetry 04/01/18 15:00 04/01/18 16:00 04/01/18 16:09 Temperature Pulse Rate 100 H 93 H 93 H Respiratory Rate 18 Blood Pressure Pulse Oximetry 04/01/18 16:10 04/01/18 17:00 04/01/18 19:00 Temperature 97.8 F Pulse Rate 91 H 102 H 97 H Respiratory Rate 20 Blood Pressure 144/86 H Pulse Oximetry 100 04/01/18 20:00 04/01/18 20:01 04/01/18 21:00 Temperature Pulse Rate 95 H 98 H 96 H Respiratory Rate 24 Blood Pressure Pulse Oximetry 97 04/01/18 21:22 04/01/18 22:00 04/01/18 23:00 Temperature 99.8 F H Pulse Rate 97 H 92 H 97 H Respiratory Rate 20 Blood Pressure 139/77 Pulse Oximetry 98 04/01/18 23:10 04/01/18 23:30 04/02/18 00:00 Temperature 97.8 F Pulse Rate 104 H 104 H 100 H Respiratory Rate 20 22 Blood Pressure 110/82 Pulse Oximetry 96 04/02/18 01:00 04/02/18 01:43 04/02/18 02:00 Temperature Pulse Rate 102 H 98 H Respiratory Rate Blood Pressure 130/80 Pulse Oximetry 04/02/18 03:00 04/02/18 03:52 04/02/18 04:00 Temperature 99.9 F H Pulse Rate 98 H 98 H 108 H Respiratory Rate 22 20 Blood Pressure 140/51 L Pulse Oximetry 99 04/02/18 05:00 04/02/18 06:00 04/02/18 07:00 Temperature Pulse Rate 100 H 92 H 98 H Respiratory Rate 16 Blood Pressure 151/75 H Pulse Oximetry 96 04/02/18 07:41 Temperature Pulse Rate 96 H Respiratory Rate 20 Blood Pressure Pulse Oximetry 96 Intake & Output 04/01/18 04/02/18 04/02/18 18:59 06:59 18:59 Intake Total 50 / 50 1075 / 1075 Output Total 600 / 600 600 / 600 Balance -550 / -550 475 / 475 Weight 45.5 kg Intake: IV 975 / 975 Sodium Bicarbonate 8.4% Inj 75 975 / 975 MEQ In D5W/1/2 NS Inj 1,000 ML @ 42 mls/hr IV.CONT .Q24H [facility] Rx#:[id number] Oral 50 / 50 100 / 100 Output: Urine Amount (Catheter) 600 / 600 600 / 600 Indwelling Urethral Catheter 600 / 600 600 / 600 Other: Bladder Irrigation Fluid - Amount Instilled Indwelling Urethral Catheter 60 30 Bladder Irrigation Fluid - Amount Drained Indwelling Urethral Catheter 60 Date of Last Bowel Movement 03/28/18 03/28/18 Narrative: GENERAL: NAD. SKIN: Warm and dry. HEAD: Normocephalic. EYES: No scleral icterus. No injection or drainage. NECK: Supple, trachea midline. No JVD or lymphadenopathy. CARDIOVASCULAR: Regular rate and rhythm without murmurs, gallops, or rubs. RESPIRATORY: Breath sounds diminished at bases. GASTROINTESTINAL: Abdomen soft, non-tender, nondistended. EXTREMITIES: No edema. Patient restrained. NEUROLOGICAL: sleepy, confused. - Urinary Catheter Management Indwelling Urethral Catheter Cath placed during this visit: yes, but has since been removed by the nurse Reason for continuing: Hourly intake/output Insertion date: 03/28/18 Insertion time: 09:15 Removal date: 03/28/18 Removal time: 13:47 Assessment and Plan - Assessment (1) Acute kidney injury Code(s): N17.9 - Acute kidney failure, unspecified Status: Acute Plan: Acute renal failure history of obstructive uropathyhematuria. Renal function has improved, no plans for dialysis. Remove VasCath tomorrow if renal function continues to improve. (2) Bilateral hydronephrosis Code(s): N13.30 - Unspecified hydronephrosis Status: Acute Plan: Urology consulted, patient had cystoscopy, right retrograde pyelogram, right double-J stent insertion with left double-J stent insertion. - Attending Attestation Discussed with Dr. Muñoz regarding encephalopathy.
[2018-04-02] MEDS: Dextrose 5%/NaCl 0.45% Inj 1,000 ML IV.CONT SCH (10:00)
[2018-04-02] MEDS: Sodium Chloride 0.9% 2 ML Flush BID IV.FLUSH SCH ×2 (10:09→21:02)
--- NOTE | 2018-04-02 12:18 | P.PNIM ---
Subjective Interval history: Pt remains confused and agitated requiring ativan. Physical Exam Vital signs: Last Vital Signs Temp 99.9 F H 04/02/18 04:00 Pulse 98 H 04/02/18 12:03 Resp 16 04/02/18 12:03 BP 151/75 H 04/02/18 07:00 Pulse Ox 96 04/02/18 07:41 Narrative: Gen: THINI heart reg lung course bs abd s/nt ext no edema restrained. bhakta. bloody urine --> but less dark from 04/01 Results Labs CBC & Chem 7: 03/30/18 06:03 04/02/18 05:23 Assessment and Plan Assessment (1) Acute kidney injury: Code(s): N17.9 - Acute kidney failure, unspecified Status: Acute (2) Bilateral hydronephrosis: Code(s): N13.30 - Unspecified hydronephrosis Status: Acute Plan DAINA with bilateral hydro and severe right abdomen and flank pain. - Concern for perinephric stranding and fluid collection adjacent to right kidney. - Pt was seen by urology and prostate is "rock hard." Concern for prostate ca and likely some obstruction. - PSA elevated at 159 - Pt underwent Cystoscopy, right retrograde pyelogram, right double-J stent insertion with left double-J stent insertion on 03/28/[address] Griffith - Renal function worsened on 03/27 with Creatinine over 6 and vascath and HD initiated 03/27. Cr on 03/28/18 increased again to 7.30 - Pt developed severe agitation/delirium at the end of HD. unclear etiology. ? HD related. doubt cva. likely metabolic. exclude infection - Pt had second HD on 03/28/18 and responded better and is clinically improving - Creatinine stable - Case reviewed with Nephrology, Dr. Gilbert, (04/02/18). Creatinine continues to improve and Nephrology will likely sign off case in the next few days. - Case reviewed with Urology, Dr. Loco Griffith (04/02/18). - Difficult to prognosticate given lack of prior w/u and data. - Case discussed at length with pt's (at bedside) and daughter (by phone). - Will obtain MRI brain without contrast, r/o brain metastasis contributing to AMS. Case d/w Radiology. GFR too low for contrast study. - obtain Bone scan - consult Neurology for AMS - consult Palliative for clarification of goals - repeat BMP in AM aflutter/rvr likely stress induced converted with cardizem gtt gtt stopped and converted to po diltiazem - Pt again receiving PO diltiazem with rate control Pulmonary edema related to daina - CXR (03/28/18) --> fluid overload - Improving after HD - Cont. 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
--- NOTE | 2018-04-02 13:47 | P.CONPAL ---
Consult Service: Palliative Care Requesting Physician: Dawood Muñoz Reason for Consult: a. To assist with evaluation and management of symptoms including: Pain, altered mental status b. To assist medical decision maker(s) with: better understanding of current medical conditions; weighing benefits/burdens of medical treatment options; making medical treatment decisions. Primary Care Provider: UNKNOWN History of Present Illness History of Present Illness: Mr. 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 Patient presented to the emergency room on 03/25/2018 with complaints of worsening right upper and lower quadrant abdominal pain radiating to the right flank. Patient described pain as a constant ache. He also complained of burning sensation during urination, some episodes of urinary incontinence for the past 2 months prior to coming to the hospital. ER course: * Vital signs * Laboratory workup revealing WBC 8.6, hemoglobin 12.4, hematocrit 36.3, platelet count 107, PT 10.5, INR 1.0, APTT 28.5, sodium 144, potassium 4.6, BUN/ creatinine 41/3.37, lactic acid 0.8, calcium 8.7, AST 22, ALT 8, total PSA 159.0 * Chest x-ray showing mild basilar atelectasis . * EKG showing sinus rhythm with occasional ectopic premature complexes possible left atrial enlargement inferior myocardial infarction. * CT abdomen/pelvis showed moderate hydronephrosis and hydroureter bilaterally. Fluid adjacent to the right kidney and right ureter. Diverticulosis without diverticulitis. Mild circumferential wall thickening urinary bladder. * Urinalysis negative for leukocyte is straight and nitrates, culture not indicated. * 1 L normal saline fluid bolus administered, 4 mg IVP morphine sulfate administered for pain with an additional 0.5 mg IV push hydromorphone for unresolved pain. And Zofran 4 mg IVP for nausea * Patient admitted for further evaluation and treatment. Urology Dr. Adan consulted on 03/26/18 for evaluation and management of patient with acute kidney injury with bilateral hydronephrosis, AST 16 Romanian coud catheter at bedside and recommended prostate needle biopsy in the future to rule out prostate cancer. Repeat CT of abdomen/pelvis on 03/27/18 showed new moderate amount of ascitic fluid, new bilateral pleural effusions with consolidation in the lung bases right greater than left and stable bilateral hydronephrosis. Nephrology Dr. Haro consulted on 03/27/18 for evaluation and management of a patient with dysuria with decreased urine output and worsening renal function/elevated creatinine, recommended hemodialysis. Unfortunately patient became very agitated and confused after hemodialysis. Patient underwent cystoscopy, right retrograde pyelogram, right double-J stent incision with left double-J stent incision on 03/28/18. Head CT on 04/01/18 revealed atrophy with no acute intracranial abnormality. Patient's renal function improved and nephrology stopped dialysis 04/02/18. Neurology Dr. Gordon consulted on 04/02/18 for evaluation and management of patient with altered mental status, opines that altered mental may most likely improve since patient's kidney function has improved though infarct cannot be excluded. Recommending proceeding with MRI brain, anticoagulation and maximizing nutritional support. Physical therapy consulted, recommending PT at rehab. Hospital course complicated with agitation, persistent altered mental status, acute kidney injury requiring short-term hemodialysis(now resolved), atrial flutter with RVR. Laboratory workup on 04/02/18 revealing sodium 144, potassium 3.2, BUN/creatinine 36/2.04, random glucose 116, total protein 2.9. Patient seen and examined in his room in the presence of his . EEG being done at bedside. Bedside RN reporting that patient is scheduled to go to nuclear medicine for a bone scan as well as MRI head. Patient is lethargic, not verbally responding during examination. Restrained to bilateral upper extremity with soft restraints. Currently not showing any signs of pain. Meeting with patient's in the conference room. Obtained psychosocial, past medical history, family history and events leading to this hospitalization. Patient`spouse is not sure how whether patient has ever completed advanced directives or not and if so she thinks [facility] might have them. Updated patient spouse on patient's current medical status and treatment plan. Addressed CODE STATUS, discussed CPR benefits, limitations and complications. Patient`s spouse elected full code for now. She would want to allow their adult daughter who is in transit to [place] from [place] to arrive and see patient. She is also relying on joint decision-making with her daughter. She feels that no code DNR would probably be the most appropriate CODE STATUS for patient given his multiple ongoing comorbidities and sudden decline in his health. Patient spouse states that patient has always had an elevated PSA and has declined to have a biopsy done in the past. She feels that she would not want to pursue aggressive treatment if patient has prostate cancer/advanced disease. She is hoping to be able to come up with a decision whether to pursue aggressive treatment or not after she knows the results of MRI brain and bone scan. Patient`s spouse would like to be immediately notified if patient continues to deteriorate to a point of needing resuscitation or intubation. Palliative care contact information provided. Palliative care will continue discussions regarding goals of treatment with patient spouse/family. Case discussed with bedside RN and Neurologist. Function/Cognitive Trajectory: Patient lives at home with his spouse. Patient ambulates with a cane. He is still able to drive himself and is independent of all his ADLs. Prior to this hospitalization he was able to verbalize his needs. . Review of Systems Constitutional: Reports weight loss, Denies fever(s), Denies weakness Eyes: Denies dry eyes Ears, Nose, Mouth, and Throat: Reports poor balance, Denies nasal congestion, Denies nasal discharge Cardiovascular: Reports fast heart rate, Reports irregular heart rhythm, Denies foot swelling, Denies generalized swelling, Denies leg swelling, Denies shortness of breath, Denies shortness of breath with activity Respiratory: Denies chest congestion, Denies cough, Denies shortness of breath Gastrointestinal: Reports abdominal pain, Reports nausea, Denies change in stools, Denies difficulty swallowing, Denies loose stools, Denies vomiting Genitourinary: Reports blood in urine, Reports difficulty urinating, Reports urinary incontinence, Reports urinary urgency Musculoskeletal: Reports decreased muscle mass, Reports muscle weakness, Reports other (Left-sided weakness from an old stroke), Denies joint swelling Skin/Breast: Denies skin ulcer Neurologic: Reports behavioral changes, Reports confusion Psychiatric: Reports change in appetite, Reports confusion, Reports depression, Reports irritability Endocrine: Denies increased urination Hematologic/Lymphatic: Denies easy bruising Review of systems obtained from patient's spouse, EMR and clinical observation. . [facility] - History History Provided By: Family Member, Medical Record - Medical History Medical History: Medical History (Last Updated 04/02/18 @ 15:11 by Jluis Grider) Bleeding ulcer Coronary artery disease Diverticulitis Diverticulitis Diverticulosis Myocardial infarction Stroke (Resolved) - Surgical History Surgical History: Surgical History (Last Updated 04/02/18 @ 13:32 by Jluis Grider) History of cataract surgery History of colonoscopy History of esophagogastroduodenoscopy (EGD) History of placement of ear tubes History of sinus surgery History of tonsillectomy Hx of CABG Hx of hernia repair - Family History Family History: Family History (Last Updated 04/02/18 @ 16:35 by Jluis Grider) Mother Heart disease Cancer Brother Heart disease - Social History I have reviewed the patient's Social History: Yes - Tobacco History Second Hand Smoke Exposure: Yes Tobacco Use In Past 30 Days: Yes Smoking Status: Current every day smoker Tobacco Type: Cigarettes - Alcohol History How Often Do You Have a Drink Containing Alcohol: Never - Substance Use History Substance History: No History of Abuse - Travel History Recent Travel in the [place] Within the Last 8 Weeks: No Recent Travel Out of the Country Within the Last 8 Weeks: No - Immunization History Tetanus Immunization: Unsure Medications and Allergies Active Medications: Active Medications Acetaminophen (Tylenol) 650 mg PO UNSCH PRN PRN Reason: SEE LABEL COMMENTS Hydrocodone Bitart/Acetaminophen ([place] 5/325) 2 tab PO Q6H PRN PRN Reason: PAIN SCALE 1 TO 5 Last Admin: 03/27/18 09:00 Dose: 2 tab Albuterol (Duoneb Neb (Danny)) 1 ampul NEB Q4HR NEB [facility] Last Admin: 04/02/18 12:01 Dose: 1 ampul Aspirin (Aspirin Chew) 81 mg PO DAILY [facility] Last Admin: 04/02/18 10:11 Dose: 81 mg Belladonna Alkaloids/Opium (B & O Supp) 60 mg RECTAL Q6HR PRN PRN Reason: bladder spasms Carbidopa/Levodopa (Sinemet 25/100 Mg) 1 tab PO Q6HR [facility] Last Admin: 04/02/18 12:35 Dose: 1 tab Clonidine HCl (Catapres) 0.1 mg PO UNSCH PRN PRN Reason: SEE LABEL COMMENTS Clonidine HCl (Catapres) 0.2 mg PO Q4HR PRN PRN Reason: sbp > 170 Diltiazem HCl (Cardizem) 30 mg PO Q6H DANNY Last Admin: 04/02/18 12:35 Dose: 30 mg Diphenhydramine HCl (Benadryl) 25 mg PO UNSCH PRN PRN Reason: SEE LABEL COMMENTS Gabapentin (Neurontin) 100 mg PO BID@08,13 [facility] Last Admin: 03/27/18 07:30 Dose: 100 mg Gabapentin (Neurontin) 200 mg PO HS [facility] Last Admin: 04/01/18 21:30 Dose: 100 mg Gelatin (Gelfoam 12 Mm/7 Mm Topical) 1 foam TOPICAL PRN PRN PRN Reason: help stop bleeding from site Gentamicin Sulfate (Gentamicin Inj) 20 mg OTHER WITH DIALYSIS PRN PRN Reason: Dwell Gentamycin Lock Last Admin: 03/30/18 10:55 Dose: 20 mg Haloperidol Lactate (Haldol Inj) 2.5 mg IV.PUSH Q4HR PRN PRN Reason: AGITATION Heparin Sodium (Porcine) (Heparin Inj) 1,000 units OTHER WITH DIALYSIS PRN PRN Reason: Dwell Heparin to Fill Catheter Last Admin: 03/30/18 10:54 Dose: 1,000 units Heparin Sodium (Porcine) (Heparin Inj) 8,000 units OTHER WITH DIALYSIS PRN PRN Reason: for machine prime Heparin Sodium (Porcine) (Heparin Central Flush) 0 unit IV.FLUSH DAILY PRN PRN Reason: SEE DOSE INSTRUCTIONS Diltiazem HCl 125 mg/ Sodium (Chloride) 125 mls @ 5 mls/hr IV.CONT TITRATE PRN ; Protocol PRN Reason: Per Protocol Last Admin: 03/31/18 18:38 Dose: 5 mg/hr, 5 mls/hr Ceftriaxone Sodium 1,000 mg/ (Sodium Chloride) 100 mls @ 200 mls/hr IV.SIG Q24H [facility] Last Infusion: 04/01/18 16:35 Dose: 0 mls/hr Dextrose/Sodium Chloride (D5w/1/2 Ns Inj) 1,000 mls @ 42 mls/hr IV.CONT .[id number] [facility] Last Admin: 04/02/18 10:00 Dose: 42 mls/hr Albumin Human (Flexbumin 25% Inj) 100 mls @ 60 mls/hr IV.SIG WITH DIALYSIS PRN PRN Reason: hypotension / volume replace Sodium Chloride (Ns Inj) 1,000 mls @ 0 mls/hr OTHER .Q0M PRN PRN Reason: for prime and rinse back Last Admin: 03/30/18 10:55 Dose: 300 mls/hr Sodium Chloride (Ns Inj) 1,000 mls @ 200 mls/hr OTHER .Q5H PRN PRN Reason: for dialyzer flush PRN Sodium Chloride (Ns Inj) 1,000 mls @ 0 mls/hr IV.CONT .Q0M PRN PRN Reason: hypotension / volume replace Sodium Chloride (Ns Inj) 500 mls @ 30 mls/hr IV.SIG .Q10H [facility] Lorazepam (Ativan Inj) 1 mg 0.02 mg/kg (1 mg) IV.PUSH YARN REWINDER [facility] Stop: 04/03/18 12:29 Lorazepam (Ativan Inj) 1 mg 0.02 mg/kg (1 mg) IV.PUSH YARN REWINDER PRN PRN Reason: SEE LABEL COMMENTS Stop: 04/03/18 12:16 Lorazepam (Ativan Inj) 1 mg IV.PUSH Q2H PRN PRN Reason: SEVERE AGITATION Last Admin: 04/02/18 10:19 Dose: 1 mg Mannitol (Mannitol Inj) 12.5 gm IV.PUSH UNSCH PRN PRN Reason: hypotension / volume replace Morphine Sulfate (Morphine Inj) 2 mg IV.PUSH Q4H PRN PRN Reason: PAIN SCALE 6 TO 10 Last Admin: 04/01/18 05:41 Dose: 2 mg Nitroglycerin (Nitrostat Sl) 0.4 mg SL Q5M PRN PRN Reason: CHEST PAIN Ondansetron HCl (Zofran Inj) 4 mg IV.PUSH UNSCH PRN PRN Reason: NAUSEA OR VOMITING Risperidone (Risperdal) 0.25 mg PO BID [facility] Last Admin: 04/02/18 10:11 Dose: 0.25 mg Sodium Chloride (Ns Flush) 5 ml IV.FLUSH PRN PRN PRN Reason: flush each lumen during HD Sodium Chloride (Ns Flush) 0 ml IV.FLUSH PRN PRN PRN Reason: SEE DOSE INSTRUCTIONS Sodium Chloride (Ns Flush) 2 ml IV.FLUSH BID [facility] Last Admin: 04/02/18 10:09 Dose: Not Given Sodium Chloride (Ns Flush) 2 ml IV.FLUSH PRN PRN PRN Reason: FLUSH AFTER USING IV ACCESS Last Admin: 04/02/18 10:03 Dose: 2 ml Allergies Allergy/AdvReac Type Severity Reaction Status Date / Time banana Allergy Severe Swelling Verified 03/25/18 19:27 walnut Allergy Severe HIVES Verified 03/25/18 19:27 tizanidine Allergy Intermediate BAD Verified 03/25/18 19:27 REACTION lisinopril Allergy Unknown Dizziness Verified 03/25/18 19:27 losartan Allergy Unknown Dizziness Verified 03/25/18 19:27 simvastatin Allergy Unknown Dizziness Verified 03/25/18 19:27 codeine AdvReac Severe KNOCKS HIM Verified 03/25/18 19:27 OUT RED YEAST RICE Allergy Unknown Itching Uncoded 03/25/18 19:27 Home Medications Medication Instructions Recorded Confirmed Type aspirin [Aspirin Low Dose] 81 mg PO DAILY 03/25/18 03/25/18 History carbidopa 25 mg PO Q6H 03/25/18 03/25/18 History gabapentin 100 mg PO BID 03/25/18 03/25/18 History gabapentin 200 mg PO HS 03/25/18 03/25/18 History Advance Directives Living Will: Unknown Healthcare Surrogate: No Health Care Surrogate Name and Number: HCP: Karrie Segura [phone]/ Power of Camera Prototyping Engineer: No Documented care wishes: Spouse is unsure whether patient has ever completed a living will or not. . Today's verbally stated goals: Patient is currently confused and not capacitated to participate in decision- making. . Family/friends goals: Patient spouse would like aggressive treatment at this time. . Ethical and Legal Issues: None identified at this time. . Physical Exam Vital Signs: Vital Signs - 24 hr 04/01/18 14:00 04/01/18 15:00 04/01/18 16:00 Temperature Pulse Rate 98 H 100 H 93 H Respiratory Rate Blood Pressure Pulse Oximetry 04/01/18 16:09 04/01/18 16:10 04/01/18 17:00 Temperature 97.8 F Pulse Rate 93 H 91 H 102 H Respiratory Rate 18 20 Blood Pressure 144/86 H Pulse Oximetry 100 04/01/18 19:00 04/01/18 20:00 04/01/18 20:01 Temperature Pulse Rate 97 H 95 H 98 H Respiratory Rate 24 Blood Pressure Pulse Oximetry 97 04/01/18 21:00 04/01/18 21:22 04/01/18 22:00 Temperature 99.8 F H Pulse Rate 96 H 97 H 92 H Respiratory Rate 20 Blood Pressure 139/77 Pulse Oximetry 98 04/01/18 23:00 04/01/18 23:10 04/01/18 23:30 Temperature 97.8 F Pulse Rate 97 H 104 H 104 H Respiratory Rate 20 22 Blood Pressure 110/82 Pulse Oximetry 96 04/02/18 00:00 04/02/18 01:00 04/02/18 01:43 Temperature Pulse Rate 100 H 102 H Respiratory Rate Blood Pressure 130/80 Pulse Oximetry 04/02/18 02:00 04/02/18 03:00 04/02/18 03:52 Temperature Pulse Rate 98 H 98 H 98 H Respiratory Rate 22 Blood Pressure Pulse Oximetry 04/02/18 04:00 04/02/18 05:00 04/02/18 06:00 Temperature 99.9 F H Pulse Rate 108 H 100 H 92 H Respiratory Rate 20 Blood Pressure 140/51 L Pulse Oximetry 99 04/02/18 07:00 04/02/18 07:41 04/02/18 12:03 Temperature Pulse Rate 98 H 96 H 98 H Respiratory Rate 16 20 16 Blood Pressure 151/75 H Pulse Oximetry 96 96 04/02/18 12:41 Temperature Pulse Rate 90 Respiratory Rate 17 Blood Pressure 137/63 Pulse Oximetry 97 I&O: Intake & Output 03/31/18 04/01/18 04/02/18 04/03/18 06:59 06:59 06:59 06:59 Intake Total 1695 / 1695 2300 / 2300 1125 / 1125 Output Total 3675 / 3675 700 / 700 1200 / 1200 Balance -1979 / -1979 1600 / 1600 - / -75 Weight 46 kg 45.7 kg 45.5 kg Physical Exam: CONSTITUTIONAL/GENERAL: This is an elderly, thin patient, in no apparent distress. TUBES/LINES/DRAINS: PIV, coud Andrew catheter, bilateral upper extremities to soft restraints SKIN: No jaundice, rashes, or lesions. Ecchymoses on upper extremities. No wounds seen anteriorly. Skin temperature appropriate. Not diaphoretic. HEAD: Atraumatic. Normocephalic. EYES: Eyes closed. Pupils equal and reactive to light. Fundi not examined. ENT: Hearing grossly normal. Nose without bleeding or purulent drainage. Dry oral mucosa. NECK: Trachea midline. Supple, nontender. CARDIOVASCULAR: Irregular rate and rhythm without murmurs, gallops, or rubs. No JVD. Peripheral pulses symmetric. RESPIRATORY/CHEST: Symmetric, unlabored respirations. Clear to auscultation. No wheezes, rales, or rhonchi. GASTROINTESTINAL: Abdomen soft, non-tender, nondistended. No guarding. Bowel sounds present. GENITOURINARY: Without palpable bladder distension. Andrew catheter in place. MUSCULOSKELETAL: Extremities without clubbing, cyanosis, or edema. No mottling or clubbing. LYMPHATICS: Did not assess NEUROLOGICAL: Lethargic, not verbalizing. Spontaneously moving all 4 extremities but not following commands. PSYCHIATRIC: No obvious anxiety/depression. no apparent hallucinations or other psychotic thought process. . Diagnostic Tests Laboratory: Laboratory Results - last 72 hr 03/31/18 03/31/18 04/01/18 05:09 12:40 06:30 Sodium 139 140 Potassium 3.2 L 3.7 Chloride 101 105 Carbon Dioxide 28.6 25.3 Anion Gap 9 10 BUN 32 H 42 H Creatinine 2.30 H 2.37 H Estimated GFR 28 L 27 L Random Glucose 110 H 105 Calcium 8.7 8.5 Phosphorus Magnesium 1.9 Albumin Urine Color Red H Urine Clarity Marked H Urine pH 8.0 Ur Specific [place] 1.014 Urine Protein 100 H Urine Glucose (UA) 50 Urine Ketones Negative Urine Occult Blood Large H Urine Nitrate Negative Urine Bilirubin Negative Urine Urobilinogen Less than 2 Ur Leukocyte Esterase Moderate H Urine RBC Urine WBC 71 H Urine Bacteria Moderate H Micro UA Comment Cath-culture ind Ur Microscopic Review Not Reportable Urine Culture Comments Cath-cult indicated 04/02/18 05:23 Sodium 144 Potassium 3.2 L Chloride 107 Carbon Dioxide 28.1 Anion Gap 9 BUN 36 H Creatinine 2.04 H Estimated GFR 32 L Random Glucose 116 H Calcium 8.9 Phosphorus 2.5 Magnesium Albumin 2.9 L Urine Color Urine Clarity Urine pH Ur Specific [place] Urine Protein Urine Glucose (UA) Urine Ketones Urine Occult Blood Urine Nitrate Urine Bilirubin Urine Urobilinogen Ur Leukocyte Esterase Urine RBC Urine WBC Urine Bacteria Micro UA Comment Ur Microscopic Review Urine Culture Comments Result Diagrams: 04/08/18 09:45 04/10/18 06:17 Microbiology: Microbiology 03/31/18 12:40 Urine Culture - Final Catheterized Urine No growth in 48 hours Imaging: Abdomen/Pelvis CT 03/27/18 00:00 CONCLUSION: 1. New moderate amount of ascitic fluid present. 2. Nonspecific bowel gas pattern which may represent an ileus or gastroenteritis. 3. New small bilateral pleural effusions with consolidation in the lung bases right greater than left. The heart size remains enlarged. 4. The kidneys are stable in appearance with bilateral hydronephrosis again noted. Catheter Placement 03/27/18 00:00 CONCLUSION: 1. Uncomplicated line placement as above. The catheter functions well and is ready for use. Chest X-Ray 03/28/18 00:00 CONCLUSION: Radiographic pattern suggesting fluid overload. Head CT 04/01/18 00:00 CONCLUSION: Atrophy, otherwise negative for an acute process. Edy Almonte MD FACR . Procedures: 03/27/18-left IJ Vas-Cath placement by interventional radiology 03/27/18-hemodialysis started Patient/Family Conference Family Conference Location: Bedside, Consult Room Issues Discussed: * Palliative care role, purpose, approach * Additional medical, psychosocial, and spiritual history * Patients general health, functional status, and cognitive changes in the months leading up to the current hospitalization * Patient/family understanding of the current medical problems * Patient/family understanding of prognosis * Patients goals of care as best understood from advance directives and/or conversations and/or values * Current medical treatment options and benefits/burdens of those options * Likely scenarios comparing ongoing aggressive care with a transition to comfort measures only * Questions answered to the best of my ability * Palliative care contact information provided Assessment and Plan - Disease Oriented Problem List (1) Delirium (2) Acute kidney injury (3) Bilateral hydronephrosis (4) Elevated PSA (5) Atrial flutter with rapid ventricular response - Symptom Scale (2) Altered mental status 0-10 Scale: Unable to quantify Pertinent Non-Medical Issues: Psychosocial: Patient is originally from [place]. He moved to [place] 35 years ago. Patient's highest level is college degree. 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 Patient has been to his current for 38 years. Patient served in the [employer] in [place] war. Patient has 1 adult daughter Aliya Medina who resides in [place]. Spiritual: Patient is an Sabianism-family open to crab steamer visits Legal: Patient spouse unsure whether patient has ever completed advanced directives. Ethical issues impacting care: None identified at this time. . Important Contacts: Spouse-Karrie Segura-[phone] [place]/[phone] Daughter-Aliya Medina-[phone] . Prognosis: Mr. 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 Patient presented to the emergency room on 03/25/2018 with complaints of worsening right upper and lower quadrant abdominal pain radiating to the right flank. Hospital course complicated with agitation, persistent altered mental status, acute kidney injury requiring short-term hemodialysis( now resolved), atrial flutter with RVR. Given multiple ongoing comorbidities this patient remains at high risk for further complications, deterioration and decline. Prognosis is guarded. . Code Status: Full Code Plan: PLAN: Legal decision maker: Patient is currently confused/agitated and not able to participate in medical decision making. It is not known whether patient will regain capacity to participate in making his own medical decisions. According to [place] statute, patient spouse Karrie Segura will serve as patient`s healthcare decision maker proxy. Goals: Aggressive. Addressed CODE STATUS, discussed CPR benefits, limitations and complications. Patient`s spouse elected full code for now. She would want to allow their adult daughter who is in transit to [place] from [place] to arrive and see patient. She is also relying on joint decision -making with her daughter. She feels that no code DNR would probably be the most appropriate CODE STATUS for patient given his multiple ongoing comorbidities and sudden decline in his health. Patient spouse states that patient has always had an elevated PSA and has declined to have a biopsy done in the past. She feels that she would not want to pursue aggressive treatment if patient has prostate cancer/advanced disease. She is hoping to be able to come up with a decision whether to pursue aggressive treatment or not after she knows the results of MRI brain and bone scan. Patient`s spouse would like to be immediately notified if patient continues to deteriorate to a point of needing resuscitation or intubation. CODE STATUS: Full code SYMPTOMS: * Pain: Patient is at risk for pain considering bedbound status, and surgical intervention. Hydrocodone/acetaminophen 5/325 2 tabs p.o. every 6 hours prn and morphine sulfate 2 mg IVP every 4 hours prn available for pain. Patient is currently not showing any signs of pain. Continue to monitor for signs and symptoms of pain. * Altered mental status: History of CVA. Recent onset of agitation and altered mentation after hemodialysis. Head CT negative for any acute intracranial abnormality. Patient scheduled to go for an MRI brain. Continue with neuro checks. Palliative care will continue to follow the patient during hospital course as condition evolves, to assist patient/decision-maker with understanding of their medical conditions, weighing benefits/burdens of treatment options, for clarification of goals of treatment. Additionally will assist with any symptoms of palliative concern Appreciation Thank you for the opportunity to participate in the care of Jr Segura. Attestation Attestation: To help prompt me to consider important information that might be impacting today's encounter and assessment, information from prior notes written by myself or my colleagues may have been "brought forward" into today's note. My signature on this note, however, is an attestation that I personally performed the exam, history, and/or decision-making noted today, and, unless otherwise indicated, the interactions with patient, family, and staff as well as the review of records all occurred today. I also attest that the listed assessment and stated plan reflect my best clinical judgment today based on the combination of historical information, prior notes, and today's exam/ interactions. When time spent is documented, it refers only to time spent today by the signer, or if indicated, combined time spent today by collaborating physician/nurse practitioner.
--- NOTE | 2018-04-02 13:55 | P.CONNEU ---
History of Present Illness Service: Neurology Primary Care Provider: UNKNOWN Chief Complaint: Confusion History of Present Illness: 77-year-old male admitted on 05/2018 for lower abdominal pain. Found to have acute renal failure in addition to nephrolithiasis. Value by urology service stents placed in the ureter bilaterally. GFR still depressed although creatinine has been improving over the past several days. Been noted be quite lethargic and weak neurologist consult for further evaluation. 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 Review of Systems All other systems reviewed negative except as stated [facility] - History History Provided By: Patient, Family Member - Medical History Medical History: Medical History (Last Updated 04/02/18 @ 15:11 by Jluis Grider) Bleeding ulcer Coronary artery disease Diverticulitis Diverticulitis Diverticulosis Myocardial infarction Stroke (Resolved) - Surgical History Surgical History: Surgical History (Last Updated 04/02/18 @ 13:32 by Jluis Grider) History of cataract surgery History of colonoscopy History of esophagogastroduodenoscopy (EGD) History of placement of ear tubes History of sinus surgery History of tonsillectomy Hx of CABG Hx of hernia repair - Tobacco History Second Hand Smoke Exposure: Yes Tobacco Use In Past 30 Days: Yes Smoking Status: Current every day smoker Tobacco Type: Cigarettes - Alcohol History How Often Do You Have a Drink Containing Alcohol: Never - Substance Use History Substance History: No History of Abuse - Travel History Recent Travel in the [place] Within the Last 8 Weeks: No Recent Travel Out of the Country Within the Last 8 Weeks: No - Immunization History Tetanus Immunization: Unsure Medications and Allergies Active Medications: Active Medications Acetaminophen (Tylenol) 650 mg PO UNSCH PRN PRN Reason: SEE LABEL COMMENTS Hydrocodone Bitart/Acetaminophen ([place] 5/325) 2 tab PO Q6H PRN PRN Reason: PAIN SCALE 1 TO 5 Last Admin: 03/27/18 09:00 Dose: 2 tab Albuterol (Duoneb Neb (Danny)) 1 ampul NEB Q4HR NEB DANNY Last Admin: 04/02/18 12:01 Dose: 1 ampul Aspirin (Aspirin Chew) 81 mg PO DAILY DANNY Last Admin: 04/02/18 10:11 Dose: 81 mg Belladonna Alkaloids/Opium (B & O Supp) 60 mg RECTAL Q6HR PRN PRN Reason: bladder spasms Carbidopa/Levodopa (Sinemet 25/100 Mg) 1 tab PO Q6HR [facility] Last Admin: 04/02/18 12:35 Dose: 1 tab Clonidine HCl (Catapres) 0.1 mg PO UNSCH PRN PRN Reason: SEE LABEL COMMENTS Clonidine HCl (Catapres) 0.2 mg PO Q4HR PRN PRN Reason: sbp > 170 Diltiazem HCl (Cardizem) 30 mg PO Q6H [facility] Last Admin: 04/02/18 12:35 Dose: 30 mg Diphenhydramine HCl (Benadryl) 25 mg PO UNSCH PRN PRN Reason: SEE LABEL COMMENTS Gabapentin (Neurontin) 100 mg PO BID@08,13 [facility] Last Admin: 03/27/18 07:30 Dose: 100 mg Gabapentin (Neurontin) 200 mg PO HS [facility] Last Admin: 04/01/18 21:30 Dose: 100 mg Gelatin (Gelfoam 12 Mm/7 Mm Topical) 1 foam TOPICAL PRN PRN PRN Reason: help stop bleeding from site Gentamicin Sulfate (Gentamicin Inj) 20 mg OTHER WITH DIALYSIS PRN PRN Reason: Dwell Gentamycin Lock Last Admin: 03/30/18 10:55 Dose: 20 mg Haloperidol Lactate (Haldol Inj) 2.5 mg IV.PUSH Q4HR PRN PRN Reason: AGITATION Heparin Sodium (Porcine) (Heparin Inj) 1,000 units OTHER WITH DIALYSIS PRN PRN Reason: Dwell Heparin to Fill Catheter Last Admin: 03/30/18 10:54 Dose: 1,000 units Heparin Sodium (Porcine) (Heparin Inj) 8,000 units OTHER WITH DIALYSIS PRN PRN Reason: for machine prime Heparin Sodium (Porcine) (Heparin Central Flush) 0 unit IV.FLUSH DAILY PRN PRN Reason: SEE DOSE INSTRUCTIONS Diltiazem HCl 125 mg/ Sodium (Chloride) 125 mls @ 5 mls/hr IV.CONT TITRATE PRN ; Protocol PRN Reason: Per Protocol Last Admin: 03/31/18 18:38 Dose: 5 mg/hr, 5 mls/hr Ceftriaxone Sodium 1,000 mg/ (Sodium Chloride) 100 mls @ 200 mls/hr IV.SIG Q24H [facility] Last Infusion: 04/01/18 16:35 Dose: 0 mls/hr Dextrose/Sodium Chloride (D5w/1/2 Ns Inj) 1,000 mls @ 42 mls/hr IV.CONT .[id number] [facility] Last Admin: 04/02/18 10:00 Dose: 42 mls/hr Albumin Human (Flexbumin 25% Inj) 100 mls @ 60 mls/hr IV.SIG WITH DIALYSIS PRN PRN Reason: hypotension / volume replace Sodium Chloride (Ns Inj) 1,000 mls @ 0 mls/hr OTHER .Q0M PRN PRN Reason: for prime and rinse back Last Admin: 03/30/18 10:55 Dose: 300 mls/hr Sodium Chloride (Ns Inj) 1,000 mls @ 200 mls/hr OTHER .Q5H PRN PRN Reason: for dialyzer flush PRN Sodium Chloride (Ns Inj) 1,000 mls @ 0 mls/hr IV.CONT .Q0M PRN PRN Reason: hypotension / volume replace Sodium Chloride (Ns Inj) 500 mls @ 30 mls/hr IV.SIG .Q10H [facility] Lorazepam (Ativan Inj) 1 mg 0.02 mg/kg (1 mg) IV.PUSH CERTIFIED PROSTHETIST VICE PRESIDENT [facility] Stop: 04/03/18 12:29 Lorazepam (Ativan Inj) 1 mg 0.02 mg/kg (1 mg) IV.PUSH CERTIFIED PROSTHETIST VICE PRESIDENT PRN PRN Reason: SEE LABEL COMMENTS Stop: 04/03/18 12:16 Lorazepam (Ativan Inj) 1 mg IV.PUSH Q2H PRN PRN Reason: SEVERE AGITATION Last Admin: 04/02/18 10:19 Dose: 1 mg Mannitol (Mannitol Inj) 12.5 gm IV.PUSH UNSCH PRN PRN Reason: hypotension / volume replace Morphine Sulfate (Morphine Inj) 2 mg IV.PUSH Q4H PRN PRN Reason: PAIN SCALE 6 TO 10 Last Admin: 04/01/18 05:41 Dose: 2 mg Nitroglycerin (Nitrostat Sl) 0.4 mg SL Q5M PRN PRN Reason: CHEST PAIN Ondansetron HCl (Zofran Inj) 4 mg IV.PUSH UNSCH PRN PRN Reason: NAUSEA OR VOMITING Risperidone (Risperdal) 0.25 mg PO BID [facility] Last Admin: 04/02/18 10:11 Dose: 0.25 mg Sodium Chloride (Ns Flush) 5 ml IV.FLUSH PRN PRN PRN Reason: flush each lumen during HD Sodium Chloride (Ns Flush) 0 ml IV.FLUSH PRN PRN PRN Reason: SEE DOSE INSTRUCTIONS Sodium Chloride (Ns Flush) 2 ml IV.FLUSH BID DANNY Last Admin: 04/02/18 10:09 Dose: Not Given Sodium Chloride (Ns Flush) 2 ml IV.FLUSH PRN PRN PRN Reason: FLUSH AFTER USING IV ACCESS Last Admin: 04/02/18 10:03 Dose: 2 ml Allergies Allergy/AdvReac Type Severity Reaction Status Date / Time banana Allergy Severe Swelling Verified 03/25/18 19:27 walnut Allergy Severe HIVES Verified 03/25/18 19:27 tizanidine Allergy Intermediate BAD Verified 03/25/18 19:27 REACTION lisinopril Allergy Unknown Dizziness Verified 03/25/18 19:27 losartan Allergy Unknown Dizziness Verified 03/25/18 19:27 simvastatin Allergy Unknown Dizziness Verified 03/25/18 19:27 codeine AdvReac Severe KNOCKS HIM Verified 03/25/18 19:27 OUT RED YEAST RICE Allergy Unknown Itching Uncoded 03/25/18 19:27 Home Medications Medication Instructions Recorded Confirmed Type aspirin [Aspirin Low Dose] 81 mg PO DAILY 03/25/18 03/25/18 History carbidopa 25 mg PO Q6H 03/25/18 03/25/18 History gabapentin 100 mg PO BID 03/25/18 03/25/18 History gabapentin 200 mg PO HS 03/25/18 03/25/18 History Exam Vital signs: Vital Signs 04/01/18 14:00 04/01/18 15:00 04/01/18 16:00 Temperature Pulse Rate 98 H 100 H 93 H Respiratory Rate Blood Pressure Pulse Oximetry 04/01/18 16:09 04/01/18 16:10 04/01/18 17:00 Temperature 97.8 F Pulse Rate 93 H 91 H 102 H Respiratory Rate 18 20 Blood Pressure 144/86 H Pulse Oximetry 100 04/01/18 19:00 04/01/18 20:00 04/01/18 20:01 Temperature Pulse Rate 97 H 95 H 98 H Respiratory Rate 24 Blood Pressure Pulse Oximetry 97 04/01/18 21:00 04/01/18 21:22 04/01/18 22:00 Temperature 99.8 F H Pulse Rate 96 H 97 H 92 H Respiratory Rate 20 Blood Pressure 139/77 Pulse Oximetry 98 04/01/18 23:00 04/01/18 23:10 04/01/18 23:30 Temperature 97.8 F Pulse Rate 97 H 104 H 104 H Respiratory Rate 20 22 Blood Pressure 110/82 Pulse Oximetry 96 04/02/18 00:00 04/02/18 01:00 04/02/18 01:43 Temperature Pulse Rate 100 H 102 H Respiratory Rate Blood Pressure 130/80 Pulse Oximetry 04/02/18 02:00 04/02/18 03:00 04/02/18 03:52 Temperature Pulse Rate 98 H 98 H 98 H Respiratory Rate 22 Blood Pressure Pulse Oximetry 04/02/18 04:00 04/02/18 05:00 04/02/18 06:00 Temperature 99.9 F H Pulse Rate 108 H 100 H 92 H Respiratory Rate 20 Blood Pressure 140/51 L Pulse Oximetry 99 04/02/18 07:00 04/02/18 07:41 04/02/18 12:03 Temperature Pulse Rate 98 H 96 H 98 H Respiratory Rate 16 20 16 Blood Pressure 151/75 H Pulse Oximetry 96 96 04/02/18 12:41 Temperature Pulse Rate 90 Respiratory Rate 17 Blood Pressure 137/63 Pulse Oximetry 97 Intake & Output 04/01/18 04/02/18 04/02/18 18:59 06:59 18:59 Intake Total 50 / 50 1075 / 1075 Output Total 600 / 600 600 / 600 Balance -550 / -550 475 / 475 Weight 45.5 kg Intake: IV 975 / 975 Sodium Bicarbonate 8.4% Inj 75 975 / 975 MEQ In D5W/1/2 NS Inj 1,000 ML @ 42 mls/hr IV.CONT .Q24H [facility] Rx#:[id number] Oral 50 / 50 100 / 100 Output: Urine Amount (Catheter) 600 / 600 600 / 600 Indwelling Urethral Catheter 600 / 600 600 / 600 Other: Bladder Irrigation Fluid - Amount Instilled Indwelling Urethral Catheter 60 30 Bladder Irrigation Fluid - Amount Drained Indwelling Urethral Catheter 60 Date of Last Bowel Movement 03/28/18 03/28/18 Narrative: GENERAL: in NAD, SKIN: Warm and dry. HEAD: Atraumatic. Normocephalic. EYES: Pupils equal and round. ENT: No nasal bleeding or discharge. NECK: Trachea midline. No JVD. CARDIOVASCULAR: Regular rate and rhythm. RESPIRATORY: No accessory muscle use. GASTROINTESTINAL: Abdomen soft, non-tender, nondistended. MUSCULOSKELETAL: Extremities without clubbing, cyanosis, or edema. NEUROLOGICAL: Slightly lethargic however alerts dysphonic speech mumbles, able to follow simple motor request able to show 2 fingers right hand no gaze deviation blink to threat intact no gross facial asymmetry keeps his mouth open for most the interview, mild left hemiparesis 4 out of 5, sensory examination cerebellar gait testing limited secondary mental status PSYCHIATRIC: Calm - Constitutional no acute distress - Routine HEENT Exam Head: Present: normocephalic Eye: Present: EOMI Results - Labs CBC & Chem 7: 03/30/18 06:03 04/02/18 05:23 Labs: Laboratory Results - last 24 hr 04/02/18 05:23 Sodium 144 Potassium 3.2 L Chloride 107 Carbon Dioxide 28.1 Anion Gap 9 BUN 36 H Creatinine 2.04 H Estimated GFR 32 L Random Glucose 116 H Calcium 8.9 Phosphorus 2.5 Albumin 2.9 L - Imaging Impressions Head CT 04/01/18 00:00 CONCLUSION: Atrophy, otherwise negative for an acute process. Edy Almonte MD FACR . 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 Code(s): I69.30 - Unspecified sequelae of cerebral infarction Status: Acute Current Visit: Yes (3) Acute kidney injury Code(s): N17.9 - Acute kidney failure, unspecified Status: Acute Current Visit: Yes (4) Bilateral hydronephrosis Code(s): N13.30 - Unspecified hydronephrosis Status: Acute Current Visit: Yes (5) Delirium Code(s): R41.0 - Disorientation, unspecified Status: Acute Current Visit: Yes (6) Atrial flutter with rapid ventricular response Code(s): I48.92 - Unspecified atrial flutter Status: Acute Current Visit: Yes - Review/Management Plan: Metabolic/uremic encephalopathy Suspect his mental status should improve his kidney function improves. Mild left hemiparesis which could be explained by his old deficit. However current infarct cannot be excluded History of previous right thalamic stroke Recommendation Follow-up MRI brain Hydration, monitor renal function Maximize nutritional support Anticoagulation for history of a flutter/A. fib as medically feasible Discussed with palliative care
--- NOTE | 2018-04-02 16:51 | NM ---
INDICATIONS: Prostate cancer. CLINICAL DATA: This is the patient's initial encounter. Patient reports that signs and symptoms have been present for 1 day and indicates a pain score of 9/10. MEDICAL/SURGICAL HISTORY: Diverticulitis. Myocardial infarction. Stroke. CABG. COMPARISON: [facility] – [place], CT ABDOMEN & PELVIS W/O CONTRAST, 03/27/2018. . TECHNIQUE: . . Whole body bone scan was performed at 2-3 hours. No correlative bone scan available for comparison. DOSE: 30.8 mCi Tc99m MDP IV FINDINGS: Whole body bone scan demonstrates no suspicious uptake in the axial or appendicular skeleton. No foc al areas of increased or decreased uptake are seen. CONCLUSION: 1. No evidence of bony metastatic disease. Electronically signed by: Nacho Vidal MD Board Certified Radiologist 04/02/2018 4:49 PM EST
--- NOTE | 2018-04-02 17:41 | MR ---
EXAM DATE: 04/02/2018 5:36 PM EST AGE/SEX: 77 years / Male INDICATIONS: Metastatic disease. CLINICAL DATA: This is the patient's subsequent encounter. Patient reports that signs and symptoms h ave been present for 1 week and indicates a pain score of 0/10. MEDICAL/SURGICAL HISTORY: Carcinoma, prostatic. Renal failure, acute. CABG. Umbilical hernia repair. COMPARISON: [facility] [place], 04/01/2018. . TECHNIQUE: Multiplanar, multisequence examination of the brain was performed without contrast. FINDINGS: Motion artifact. Cerebrum: The ventricles are normal for age. Cerebral atrophy. No evidence of midline shift, mass le rose, hemorrhage or acute infarction. No extraaxial fluid collections are seen. The pituitary gland and suprasellar cistern are normal in configuration. Old right thalamic lacunar infarct White Matter: Scattered foci of bright T2 signal abnormalities are seen in the white matter. Posterior Fossa: The cerebellum and brainstem are intact. The 4th ventricle is midline. The cerebel lopontine angle is unremarkable. The cerebellar tonsils are normal in position. Diffusion Imaging: No focal areas of restricted diffusion are seen. No evidence of acute infarction . Extracranial: The visualized portions of the orbits and paranasal sinuses are unremarkable. CONCLUSION: 1. Cerebral atrophy. 2. Old right thalamic lacunar infarct. 3. No obvious metastatic disease. 4. Minimal nonspecific white matter changes. Electronically signed by: Carlos Jay MD Board Certified Radiologist 04/02/2018 5:39 PM EST
[2018-04-02] MEDS: Gabapentin 100 MG Capsule PO SCH (20:59)
--- NOTE | 2018-04-03 00:19 | MG ---
cc: Eugene Gordon MD DATE OF STUDY: 04/02/2018 ELECTROENCEPHALOGRAM RECORD NUMBER: [id number] DESCRIPTION: 5-6 Hz posterior rhythm. 2040 microvolts. Occasional 2-3 Hz delta activity occurring occasional head and arm movement. No epileptic correlation. Rhythm, generalized slowing suggesting a transition into drowsy state and possibly stage I sleep, spindles, possible K complexes. Suggested stage II sleep. Reduced driving with photic stimulation. Single lead EKG showing sinus rhythm with premature contractions. INTERPRETATION: Mild encephalopathy in sleep state. Clinical correlation. Eugene Gordon MD MG/ts/do , 10:45 PM , 10:48 PM
[2018-04-03] MEDS: dilTIAZem 30 MG Tablet PO SCH ×5 (00:51→17:09)
[2018-04-03 07:22] LABS: Albumin 2.7 g/dL (3.4-5.0); Calcium 8.8 mg/dL (8.5-10.1); Carbon Dioxide 25.2 meq/L (21.0-32.0); Phosphorus 3.1 mg/dL (2.5-4.9); Potassium 4.1 meq/L (3.5-5.1)
--- NOTE | 2018-04-03 08:55 | P.PNURO ---
Subjective Patient symptoms today: Pt seen and examined. Objective Vital Signs: Vital Signs 04/02/18 09:00 04/02/18 10:00 04/02/18 11:00 Temperature Pulse Rate 90 96 H 98 H Respiratory Rate Blood Pressure Pulse Oximetry 04/02/18 12:00 04/02/18 12:03 04/02/18 12:41 Temperature Pulse Rate 106 H 98 H 90 Respiratory Rate 16 17 Blood Pressure 137/63 Pulse Oximetry 97 04/02/18 13:00 04/02/18 14:00 04/02/18 15:00 Temperature Pulse Rate 96 H 98 H 98 H Respiratory Rate Blood Pressure Pulse Oximetry 04/02/18 16:00 04/02/18 18:00 04/02/18 18:03 Temperature Pulse Rate 85 86 90 Respiratory Rate 15 15 Blood Pressure 139/63 117/60 Pulse Oximetry 100 98 04/02/18 19:00 04/02/18 19:44 04/02/18 20:00 Temperature 98.0 F Pulse Rate 86 76 88 Respiratory Rate 18 20 Blood Pressure 123/63 Pulse Oximetry 97 96 04/02/18 21:00 04/02/18 22:00 04/03/18 00:00 Temperature Pulse Rate 88 90 89 Respiratory Rate 20 Blood Pressure 142/68 H Pulse Oximetry 100 04/03/18 00:18 04/03/18 02:00 04/03/18 02:59 Temperature Pulse Rate 74 90 90 Respiratory Rate 24 25 H Blood Pressure Pulse Oximetry 97 04/03/18 03:00 04/03/18 04:00 04/03/18 05:00 Temperature Pulse Rate 104 H 102 H 90 Respiratory Rate 20 Blood Pressure 153/81 H Pulse Oximetry 99 04/03/18 06:00 04/03/18 07:00 04/03/18 07:49 Temperature Pulse Rate 102 H 90 106 H Respiratory Rate 18 Blood Pressure Pulse Oximetry 97 04/03/18 07:56 Temperature 98.1 F Pulse Rate 94 H Respiratory Rate 20 Blood Pressure 150/88 H Pulse Oximetry Intake & Output 04/02/18 04/03/18 04/03/18 18:59 06:59 18:59 Intake Total 300 / 300 70519 / 87637 Output Total 550 / 550 Balance 300 / 300 -550 / -550 14763 / 45557 Weight 50 kg Intake: IV 100 / 100 35167 / 91923 Cardizem Inj 125 MG In NS Inj 125 / 125 100 ML @ 5 MG/HR 5 mls/hr IV. CONT TITRATE PRN Rx#:[id number] Rocephin Inj 1,000 MG In NS Inj 100 / 100 100 ML @ 200 mls/hr IV.SIG Q24H ENMANUEL Rx#:[id number] NS Inj 1,000 ML @ As Directed 1000 / 1000 OTHER .Q0M PRN Rx#:[id number] Oral 200 / 200 Output: Urine Amount (Catheter) 550 / 550 Indwelling Urethral Catheter 550 / 550 Other: Bladder Irrigation Fluid - Amount Instilled Indwelling Urethral Catheter 80 Bladder Irrigation Fluid - Amount Drained Indwelling Urethral Catheter 120 Date of Last Bowel Movement 03/28/18 03/28/18 Result Diagrams: 03/30/18 06:03 04/03/18 06:01 Imaging: Impressions Bone Scan Nuclear Medicine 04/02/18 00:00 CONCLUSION: 1. No evidence of bony metastatic disease. Head MRI 04/02/18 00:00 CONCLUSION: 1. Cerebral atrophy. 2. Old right thalamic lacunar infarct. 3. No obvious metastatic disease. 4. Minimal nonspecific white matter changes. Medications and IVs: Active Medications Generic Name Dose Route Start Last Admin Trade Name Freq PRN Reason Stop Dose Admin Acetaminophen 650 mg 03/27/18 10:21 Tylenol PO UNSCH PRN SEE LABEL COMMENTS Hydrocodone Bitart/Acetaminophen 2 tab 03/25/18 23:54 03/27/18 09:00 [place] 5/325 PO 2 tab Q6H PRN Administration PAIN SCALE 1 TO 5 Albuterol 1 ampul 03/28/18 08:09 04/03/18 07:47 Duoneb Neb ([facility]) NEB 1 ampul Q4HR NEB ENMANUEL Administration Aspirin 81 mg 03/27/18 09:00 04/02/18 10:11 Aspirin Chew PO 81 mg DAILY ENMANUEL Administration Belladonna Alkaloids/Opium 60 mg 03/28/18 14:32 B & O Supp RECTAL Q6HR PRN bladder spasms Carbidopa/Levodopa 1 tab 03/30/18 18:00 04/03/18 05:16 Sinemet 25/100 Mg PO Not Given Q6HR ENMANUEL Clonidine HCl 0.1 mg 03/27/18 10:21 Catapres PO UNSCH PRN SEE LABEL COMMENTS Clonidine HCl 0.2 mg 03/28/18 10:38 Catapres PO Q4HR PRN sbp > 170 Diltiazem HCl 30 mg 03/30/18 06:00 04/03/18 05:15 Cardizem PO Not Given Q6H ENMANUEL Diphenhydramine HCl 25 mg 03/27/18 10:21 Benadryl PO UNSCH PRN SEE LABEL COMMENTS Gabapentin 100 mg 03/26/18 13:00 03/27/18 07:30 Neurontin PO 100 mg BID@08,13 ENMANUEL Administration Gabapentin 200 mg 03/26/18 21:00 04/02/18 20:59 Neurontin PO 200 mg HS ENMANUEL Administration Gelatin 1 foam 03/27/18 10:21 Gelfoam 12 Mm/7 Mm Topical TOPICAL PRN PRN help stop bleeding from site Gentamicin Sulfate 20 mg 03/27/18 10:21 03/30/18 10:55 Gentamicin Inj OTHER 20 mg WITH DIALYSIS PRN Administration Dwell Gentamycin Lock Haloperidol Lactate 2.5 mg 03/27/18 18:16 Haldol Inj IV.PUSH Q4HR PRN AGITATION Heparin Sodium (Porcine) 1,000 units 03/27/18 10:21 03/30/18 10:54 Heparin Inj OTHER 1,000 units WITH DIALYSIS PRN Administration Dwell Heparin to Fill Catheter Heparin Sodium (Porcine) 8,000 units 03/27/18 10:21 Heparin Inj OTHER WITH DIALYSIS PRN for machine prime Heparin Sodium (Porcine) 0 unit 03/27/18 12:17 Heparin Central Flush IV.FLUSH DAILY PRN SEE DOSE INSTRUCTIONS Diltiazem HCl 125 mg/ Sodium 125 mls @ 5 mls/hr 03/31/18 11:00 04/03/18 07:48 Chloride IV.CONT Infused TITRATE PRN Titration Per Protocol Protocol 5 MG/HR Ceftriaxone Sodium 1,000 mg/ 100 mls @ 200 mls/hr 03/31/18 14:00 04/02/18 17: 15 Sodium Chloride IV.SIG Infused Q24H ENMANUEL Infusion Dextrose/Sodium Chloride 1,000 mls @ 42 mls/hr 04/02/18 08:22 04/02/18 10:00 D5w/1/2 Ns Inj IV.CONT 42 mls/hr .[id number] ENMANUEL Administration Albumin Human 100 mls @ 60 mls/hr 03/27/18 10:21 Flexbumin 25% Inj IV.SIG WITH DIALYSIS PRN hypotension / volume replace Sodium Chloride 1,000 mls @ 0 mls/hr 03/27/18 10:21 04/03/18 07:50 Ns Inj OTHER Infused .Q0M PRN Infusion for prime and rinse back As Directed Sodium Chloride 1,000 mls @ 200 mls/hr 03/27/18 10:21 Ns Inj OTHER .Q5H PRN for dialyzer flush PRN Sodium Chloride 1,000 mls @ 0 mls/hr 03/27/18 10:21 Ns Inj IV.CONT .Q0M PRN hypotension / volume replace As Directed Sodium Chloride 500 mls @ 30 mls/hr 03/28/18 14:00 Ns Inj IV.SIG .Q10H ENMANUEL Lorazepam 1 mg 04/02/18 12:30 04/02/18 15:51 Ativan Inj 0.02 mg/kg (1 mg) 04/03/18 12:29 1 mg IV.PUSH Administration APPLIED [employer]YCHOLOGY [facility] [facility] Lorazepam 1 mg 04/02/18 12:17 04/02/18 15:58 Ativan Inj 0.02 mg/kg (1 mg) 04/03/18 12:16 1 mg IV.PUSH Administration APPLIED PSYCHOLOGY CHAIR PRN SEE LABEL COMMENTS Lorazepam 1 mg 03/27/18 18:18 04/02/18 18:32 Ativan Inj IV.PUSH 1 mg Q2H PRN Administration SEVERE AGITATION Mannitol 12.5 gm 03/27/18 10:21 Mannitol Inj IV.PUSH UNSCH PRN hypotension / volume replace Morphine Sulfate 2 mg 03/25/18 23:54 04/01/18 05:41 Morphine Inj IV.PUSH 2 mg Q4H PRN Administration PAIN SCALE 6 TO 10 Nitroglycerin 0.4 mg 03/27/18 10:21 Nitrostat Sl SL Q5M PRN CHEST PAIN Ondansetron HCl 4 mg 03/27/18 10:21 Zofran Inj IV.PUSH UNSCH PRN NAUSEA OR VOMITING Risperidone 0.25 mg 03/29/18 21:00 04/02/18 21:02 Risperdal PO 0.25 mg BID ENMANUEL Administration Sodium Chloride 5 ml 03/27/18 10:21 Ns Flush IV.FLUSH PRN PRN flush each lumen during HD Sodium Chloride 0 ml 03/27/18 12:17 Ns Flush IV.FLUSH PRN PRN SEE DOSE INSTRUCTIONS Sodium Chloride 2 ml 03/28/18 21:00 04/02/18 21:02 Ns Flush IV.FLUSH 2 ml BID ENMAUNEL Administration Sodium Chloride 2 ml 03/28/18 13:44 04/02/18 10:03 Ns Flush IV.FLUSH 2 ml PRN PRN Administration FLUSH AFTER USING IV ACCESS Objective Remarks: Abd:soft,nt,nd Bladder not distended 03/28 Abd:soft,nt,nd Bladder not distended 03/29 Abd:soft,nt,nd Bladder not distended Bhakta blood tinged. 04/01 Abd:soft,nt,nd Bhakta: bloody 04/02 Abd:soft,nt,nd Bhakta: blood tinged 04/03 Abd:soft,nt,nd Bhakta: blood tinged Assessment and Plan - Plan 77 y.o male admitted with abdominal pain; ARF and elevated PSA Maintain bhakta drainage for now CT scan later today Nephrology consulted. 03/28 77y.o. male with ARF and bilateral hydro with elevated PSA Will plan for cysto with b/l RPR's today in OR with possible stent insertion D/W pt's 03/29 77y.o. male with ARF and bilateral hydro with elevated PSA S/P cysto with b/l RPR's with b/l stent insertion Creatinine down to 3.9 today. Had dialysis recently. Follow u/o. Maintain bhakta catheter. Irrigate prn. 04/01 77 y.o male with ARF and bilateral hydro s/p b/l JJ stent insertion Creatinine continues to improve s/p b/l Jj stent insertion Maintain bhakta catheter and irrigate please 04/02 77 y.o male with ARF and bilateral hydro s/p b/l JJ stent insertion Creatinine continues to improve s/p b/l Jj stent insertion; down to 2.0 Maintain bhakta catheter and irrigate please 04/03 77 y.o male with ARF and bilateral hydro s/p b/l JJ stent insertion Creatinine continues to improve s/p b/l Jj stent insertion; down to 1.8 today. Maintain bhakta catheter and irrigate please
--- NOTE | 2018-04-03 09:24 | P.PNNP ---
Subjective Interval history: Renal function has improved. Patient is poorly responsive. No significant improvement in his mental status. Seen by neurology. MRI report noted. Physical Exam Vital signs: Vital Signs 04/02/18 10:00 04/02/18 11:00 04/02/18 12:00 Temperature Pulse Rate 96 H 98 H 106 H Respiratory Rate Blood Pressure Pulse Oximetry 04/02/18 12:03 04/02/18 12:41 04/02/18 13:00 Temperature Pulse Rate 98 H 90 96 H Respiratory Rate 16 17 Blood Pressure 137/63 Pulse Oximetry 97 04/02/18 14:00 04/02/18 15:00 04/02/18 16:00 Temperature Pulse Rate 98 H 98 H 85 Respiratory Rate 15 Blood Pressure 139/63 Pulse Oximetry 100 04/02/18 18:00 04/02/18 18:03 04/02/18 19:00 Temperature Pulse Rate 86 90 86 Respiratory Rate 15 Blood Pressure 117/60 Pulse Oximetry 98 04/02/18 19:44 04/02/18 20:00 04/02/18 21:00 Temperature 98.0 F Pulse Rate 76 88 88 Respiratory Rate 18 20 Blood Pressure 123/63 Pulse Oximetry 97 96 04/02/18 22:00 04/03/18 00:00 04/03/18 00:18 Temperature Pulse Rate 90 89 74 Respiratory Rate 20 24 Blood Pressure 142/68 H Pulse Oximetry 100 97 04/03/18 02:00 04/03/18 02:59 04/03/18 03:00 Temperature Pulse Rate 90 90 104 H Respiratory Rate 25 H Blood Pressure Pulse Oximetry 04/03/18 04:00 04/03/18 05:00 04/03/18 06:00 Temperature Pulse Rate 102 H 90 102 H Respiratory Rate 20 Blood Pressure 153/81 H Pulse Oximetry 99 04/03/18 07:00 04/03/18 07:49 04/03/18 07:56 Temperature 98.1 F Pulse Rate 90 106 H 94 H Respiratory Rate 18 20 Blood Pressure 150/88 H Pulse Oximetry 97 Intake & Output 04/02/18 04/03/18 04/03/18 18:59 06:59 18:59 Intake Total 300 / 300 23652 / 53609 Output Total 550 / 550 Balance 300 / 300 -550 / -550 77447 / 27588 Weight 50 kg Intake: IV 100 / 100 76553 / 19175 Cardizem Inj 125 MG In NS Inj 125 / 125 100 ML @ 5 MG/HR 5 mls/hr IV. CONT TITRATE PRN Rx#:[id number] Rocephin Inj 1,000 MG In NS Inj 100 / 100 100 ML @ 200 mls/hr IV.SIG Q24H ENMANUEL Rx#:[id number] NS Inj 1,000 ML @ As Directed 1000 / 1000 OTHER .Q0M PRN Rx#:[id number] Oral 200 / 200 Output: Urine Amount (Catheter) 550 / 550 Indwelling Urethral Catheter 550 / 550 Other: Bladder Irrigation Fluid - Amount Instilled Indwelling Urethral Catheter 80 Bladder Irrigation Fluid - Amount Drained Indwelling Urethral Catheter 120 Date of Last Bowel Movement 03/28/18 03/28/18 Narrative: GENERAL: in NAD, SKIN: Warm and dry. HEAD: Atraumatic. Normocephalic. EYES: Pupils equal and round. ENT: No nasal bleeding or discharge. NECK: Trachea midline. No JVD. CARDIOVASCULAR: Regular rate and rhythm. RESPIRATORY: No accessory muscle use. GASTROINTESTINAL: Abdomen soft, non-tender, nondistended. MUSCULOSKELETAL: Extremities without clubbing, cyanosis, or edema. NEUROLOGICAL: lethargic. - Urinary Catheter Management Indwelling Urethral Catheter Cath placed during this visit: yes, but has since been removed by the nurse Reason for continuing: Hourly intake/output Insertion date: 03/28/18 Insertion time: 09:15 Removal date: 03/28/18 Removal time: 13:47 Assessment and Plan - Assessment (1) Acute kidney injury Code(s): N17.9 - Acute kidney failure, unspecified Status: Acute Plan: Acute renal failure history of obstructive uropathyhematuria. Renal function has improved, no plans for dialysis. RN was instructed to remove VasCath. He continues to have hematuria: Urology following. I will sign off at this time. (2) Bilateral hydronephrosis Code(s): N13.30 - Unspecified hydronephrosis Status: Acute Plan: Urology consulted, patient had cystoscopy, right retrograde pyelogram, right double-J stent insertion with left double-J stent insertion. (3) Metabolic encephalopathy Code(s): G93.41 - Metabolic encephalopathy Status: Acute Plan: unclear etiology. Neurology following.
[2018-04-03] MEDS: Dextrose 5%/NaCl 0.45% Inj 1,000 ML IV.CONT SCH (09:56)
[2018-04-03] MEDS: Sodium Chloride 0.9% 2 ML Flush BID IV.FLUSH SCH ×2 (11:16→21:46)
--- NOTE | 2018-04-03 14:45 | P.PNPAL ---
Reason for Visit Reason for visit: a. To assist with evaluation and management of symptoms including: Pain, altered mental status b. To assist medical decision maker(s) with: better understanding of current medical conditions; weighing benefits/burdens of medical treatment options; making medical treatment decisions. Subjective Subjective/Interval History: Follow-up medically necessary for symptom management and further clarification of goals of medical treatment. Patient seen and examined in the presence of his spouse and his daughter Aliya who has arrived today from [place]. Patient is in bed, awake, lethargic and oriented to self only. Patient requesting a "Lam's sandwich". Patient endorsing pain to his lower back. Offered repositioning and patient declined. MRI brain on 04/02/18 showed cerebral atrophy with no obvious metastatic disease. Bone scan on 04/03/18 showed no evidence of bony metastatic disease. Renal function improving. Offered to provide patient's medical status to spouse and patient's daughter. Patient`s spouse Karrie Segura (HCP) politely stated that family was not ready to speak to palliative care at this time. They would like to speak to Dr. Muñoz first. Patient spouse has palliative care contact information. Case discussed with bedside RN and Dr. Muñoz. . Family/Friend Interactions: See interval note. . Advance Directives Living Will: Never completed Health Care Surrogate: Never completed Durable Power of Learning Support Specialist: Never completed Health Care Surrogate Name and Number: HCP: Karrie Segura [phone]/ Documented care wishes:: Spouse is unsure whether patient has ever completed a living will or not. . Objective Vital Signs: Vital Signs 04/02/18 15:00 04/02/18 16:00 04/02/18 18:00 Temperature Pulse Rate 98 H 85 86 Respiratory Rate 15 Blood Pressure 139/63 Pulse Oximetry 100 04/02/18 18:03 04/02/18 19:00 04/02/18 19:44 Temperature Pulse Rate 90 86 76 Respiratory Rate 15 18 Blood Pressure 117/60 Pulse Oximetry 98 97 04/02/18 20:00 04/02/18 21:00 04/02/18 22:00 Temperature 98.0 F Pulse Rate 88 88 90 Respiratory Rate 20 Blood Pressure 123/63 Pulse Oximetry 96 04/03/18 00:00 04/03/18 00:18 04/03/18 02:00 Temperature Pulse Rate 89 74 90 Respiratory Rate 20 24 Blood Pressure 142/68 H Pulse Oximetry 100 97 04/03/18 02:59 04/03/18 03:00 04/03/18 04:00 Temperature Pulse Rate 90 104 H 102 H Respiratory Rate 25 H 20 Blood Pressure 153/81 H Pulse Oximetry 99 04/03/18 05:00 04/03/18 06:00 04/03/18 07:00 Temperature Pulse Rate 90 102 H 90 Respiratory Rate Blood Pressure Pulse Oximetry 04/03/18 07:49 04/03/18 07:56 04/03/18 08:00 Temperature 98.1 F Pulse Rate 106 H 94 H 94 H Respiratory Rate 18 20 Blood Pressure 150/88 H Pulse Oximetry 97 04/03/18 09:00 04/03/18 10:00 04/03/18 11:00 Temperature Pulse Rate 102 H 100 H 100 H Respiratory Rate Blood Pressure Pulse Oximetry 04/03/18 11:27 04/03/18 11:39 04/03/18 12:00 Temperature 99.3 F Pulse Rate 101 H 104 H 99 H Respiratory Rate 20 17 Blood Pressure 136/87 Pulse Oximetry 04/03/18 12:43 Temperature Pulse Rate 100 H Respiratory Rate Blood Pressure Pulse Oximetry Intake & Output 04/02/18 04/03/18 04/03/18 18:59 06:59 18:59 Intake Total 300 / 300 19935 / 34245 Output Total 550 / 550 Balance 300 / 300 -550 / -550 77386 / 79342 Weight 50 kg Intake: IV 100 / 100 96349 / 21682 D5W/1/2 NS Inj 1,000 ML @ 42 1000 / 1000 mls/hr IV.CONT .[id number] [facility] Rx# :[id number] Cardizem Inj 125 MG In NS Inj 125 / 125 100 ML @ 5 MG/HR 5 mls/hr IV. CONT TITRATE PRN Rx#:[id number] Rocephin Inj 1,000 MG In NS Inj 100 / 100 100 ML @ 200 mls/hr IV.SIG Q24H ENMANUEL Rx#:[id number] NS Inj 1,000 ML @ As Directed 1000 / 1000 OTHER .Q0M PRN Rx#:[id number] Oral 200 / 200 Output: Urine Amount (Catheter) 550 / 550 Indwelling Urethral Catheter 550 / 550 Other: Bladder Irrigation Fluid - Amount Instilled Indwelling Urethral Catheter 80 Bladder Irrigation Fluid - Amount Drained Indwelling Urethral Catheter 120 Date of Last Bowel Movement 03/28/18 03/28/18 03/28/18 Physical Exam: CONSTITUTIONAL/GENERAL: This is an elderly, thin patient, in no apparent distress. TUBES/LINES/DRAINS: PIV, coud Andrew catheter, bilateral upper extremities to soft restraints SKIN: No jaundice, rashes, or lesions. Ecchymoses on upper extremities. No wounds seen anteriorly. Skin temperature appropriate. Not diaphoretic. HEAD: Atraumatic. Normocephalic. EYES: Pupils reactive to light. Fundi not examined. ENT: Hearing grossly normal. Nose without bleeding or purulent drainage. Dry oral mucosa. NECK: Trachea midline. Supple, nontender. CARDIOVASCULAR: Irregular rate and rhythm without murmurs, gallops, or rubs. No JVD. Peripheral pulses symmetric. RESPIRATORY/CHEST: Symmetric, unlabored respirations. Clear to auscultation. No wheezes, rales, or rhonchi. GASTROINTESTINAL: Abdomen soft, non-tender, nondistended. No guarding. Bowel sounds present. GENITOURINARY: Without palpable bladder distension. Andrew catheter. Hematuria. MUSCULOSKELETAL: Extremities without clubbing, cyanosis, or edema. No mottling or clubbing. LYMPHATICS: Did not assess NEUROLOGICAL: Lethargic, oriented to self only. Follows commands with all 4 extremities. PSYCHIATRIC: No obvious anxiety/depression. no apparent hallucinations or other psychotic thought process. . Diagnostic Tests Laboratory: Laboratory Results - last 72 hr 04/01/18 04/02/18 04/03/18 06:30 05:23 06:01 Sodium 140 144 144 Potassium 3.7 3.2 L 4.1 D Chloride 105 107 110 H Carbon Dioxide 25.3 28.1 25.2 Anion Gap 10 9 9 BUN 42 H 36 H 34 H Creatinine 2.37 H 2.04 H 1.87 H Estimated GFR 27 L 32 L 35 L Random Glucose 105 116 H 100 Calcium 8.5 8.9 8.8 Phosphorus 2.5 3.1 Albumin 2.9 L 2.7 L Result Diagrams: 03/30/18 06:03 04/03/18 06:01 Microbiology: Microbiology 03/31/18 12:40 Urine Culture - Final Catheterized Urine No growth in 48 hours Imaging: Abdomen/Pelvis CT 03/27/18 00:00 CONCLUSION: 1. New moderate amount of ascitic fluid present. 2. Nonspecific bowel gas pattern which may represent an ileus or gastroenteritis. 3. New small bilateral pleural effusions with consolidation in the lung bases right greater than left. The heart size remains enlarged. 4. The kidneys are stable in appearance with bilateral hydronephrosis again noted. Catheter Placement 03/27/18 00:00 CONCLUSION: 1. Uncomplicated line placement as above. The catheter functions well and is ready for use. Chest X-Ray 03/28/18 00:00 CONCLUSION: Radiographic pattern suggesting fluid overload. Head CT 04/01/18 00:00 CONCLUSION: Atrophy, otherwise negative for an acute process. Edy Almonte MD FACR . Bone Scan Nuclear Medicine 04/02/18 00:00 CONCLUSION: 1. No evidence of bony metastatic disease. Head MRI 04/02/18 00:00 CONCLUSION: 1. Cerebral atrophy. 2. Old right thalamic lacunar infarct. 3. No obvious metastatic disease. 4. Minimal nonspecific white matter changes. Procedures: 03/27/18-left IJ Vas-Cath placement by interventional radiology 03/27/18-hemodialysis started Assessment and Plan - Disease Oriented Problem List (1) Delirium (2) Acute kidney injury (3) Bilateral hydronephrosis (4) Elevated PSA (5) Atrial flutter with rapid ventricular response - Symptom Scale (2) Altered mental status 0-10 Scale: Unable to quantify Pertinent Non-Medical Issues: Psychosocial: Patient is originally from [place]. He moved to [place] 35 years ago. Patient's highest level is college degree. 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 Patient has been to his current for 38 years. Patient served in the [employer] in [place] war. Patient has 1 adult daughter Aliya Medina who resides in [place]. Spiritual: Patient is an Jew-family open to contact center team lead visits Legal: Patient spouse unsure whether patient has ever completed advanced directives. Ethical issues impacting care: None identified at this time. . Important Contacts: Spouse-Karrie Segura-[phone] home/[phone] Daughter-Aliya Medina-[phone] . Prognosis: Mr. 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 Patient presented to the emergency room on 03/25/2018 with complaints of worsening right upper and lower quadrant abdominal pain radiating to the right flank. Hospital course complicated with agitation, persistent altered mental status, acute kidney injury requiring short-term hemodialysis( now resolved), atrial flutter with RVR. Given multiple ongoing comorbidities this patient remains at high risk for further complications, deterioration and decline. Prognosis is guarded. . Code Status: Full Code Plan: PLAN: Legal decision maker: Patient is currently confused/agitated and not able to participate in medical decision making. It is not known whether patient will regain capacity to participate in making his own medical decisions. According to [place] statute, patient spouse Karrie Segura will serve as patient`s healthcare decision maker proxy. Goals: Aggressive. Offered to provide patient's medical status to spouse and patient's daughter who has just arrived from [place]. Patient`s spouse Karrie Segura (HCP) politely stated that family was not ready to speak to palliative care at this time. They would like to speak to Dr. Muñoz first. CODE STATUS: Full code SYMPTOMS: * Pain: Patient is at risk for pain considering bedbound status, and surgical intervention. Hydrocodone/acetaminophen 5/325 2 tabs p.o. every 6 hours prn and morphine sulfate 2 mg IVP every 4 hours prn available for pain. Patient is currently not showing any signs of pain. Continue to monitor for signs and symptoms of pain. * Altered mental status: History of CVA. Recent onset of agitation and altered mentation after hemodialysis. Head CT negative for any acute intracranial abnormality. Patient scheduled to go for an MRI brain. Continue with neuro checks. Palliative care will continue to follow the patient during hospital course as condition evolves, to assist patient/decision-maker with understanding of their medical conditions, weighing benefits/burdens of treatment options, for clarification of goals of treatment. Additionally will assist with any symptoms of palliative concern Attestation Attestation: To help prompt me to consider important information that might be impacting today's encounter and assessment, information from prior notes written by myself or my colleagues may have been "brought forward" into today's note. My signature on this note, however, is an attestation that I personally performed the exam, history, and/or decision-making noted today, and, unless otherwise indicated, the interactions with patient, family, and staff as well as the review of records all occurred today. I also attest that the listed assessment and stated plan reflect my best clinical judgment today based on the combination of historical information, prior notes, and today's exam/ interactions. When time spent is documented, it refers only to time spent today by the signer, or if indicated, combined time spent today by collaborating physician/nurse practitioner.
--- NOTE | 2018-04-03 15:50 | P.PNIM ---
Subjective Interval history: confusion is much improved today. Pt's appetite has improved, but still limited. Pt ate about 15% of breakfast and lunch. Physical Exam Vital signs: Last Vital Signs Temp 99.3 F 04/03/18 11:27 Pulse 72 04/03/18 15:00 Resp 17 04/03/18 11:39 BP 136/87 04/03/18 11:27 Pulse Ox 97 04/03/18 07:49 Narrative: Gen: THINI heart reg lung course bs abd s/nt ext no edema restrained. bhakta. bloody urine --> but less dark from 04/01 Results Labs CBC & Chem 7: 04/05/18 06:05 04/05/18 06:05 Assessment and Plan Assessment (1) Acute kidney injury: Code(s): N17.9 - Acute kidney failure, unspecified Status: Acute (2) Bilateral hydronephrosis: Code(s): N13.30 - Unspecified hydronephrosis Status: Acute Plan DAINA with bilateral hydro and severe right abdomen and flank pain. - Concern for perinephric stranding and fluid collection adjacent to right kidney. - Pt was seen by urology and prostate is "rock hard." Concern for prostate ca and likely some obstruction. - PSA elevated at 159 - Pt underwent Cystoscopy, right retrograde pyelogram, right double-J stent insertion with left double-J stent insertion on 03/28/[address] Griffith - Renal function worsened on 03/27 with Creatinine over 6 and vascath and HD initiated 03/27. Cr on 03/28/18 increased again to 7.30 - Pt developed severe agitation/delirium at the end of HD. unclear etiology. ? HD related. doubt cva. likely metabolic. exclude infection - Pt had second HD on 03/28/18 and responded better and is clinically improving - Creatinine stable - Case reviewed with Nephrology, Dr. Gilbert, (04/02/18). Creatinine continues to improve and Nephrology will likely sign off case in the next few days. - Case reviewed with Urology, Dr. Loco Griffith (04/02/18). - Difficult to prognosticate given lack of prior w/u and data. - Case discussed at length with pt's (at bedside) and daughter (by phone). - Will obtain MRI brain without contrast, r/o brain metastasis contributing to AMS. Case d/w Radiology. GFR too low for contrast study. - obtain Bone scan - consult Neurology for AMS - consult Palliative for clarification of goals - repeat BMP in AM aflutter/rvr likely stress induced converted with cardizem gtt gtt stopped and converted to po diltiazem - Pt again receiving PO diltiazem with rate control Pulmonary edema related to daina - CXR (03/28/18) --> fluid overload - Improving after HD - Cont. 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
[2018-04-03] MEDS: Belladonna Alkaloid/Opium 60 MG Supp RECTAL SCH (17:09)
--- NOTE | 2018-04-03 17:38 | US ---
EXAM DATE: 04/03/2018 5:35 PM EST AGE/SEX: 77 years / Male INDICATIONS: Follow up ascites seen on CT Abdomen/Pelvis on 03/27/18. CLINICAL DATA: This is the patient's initial encounter. Patient reports that signs and symptoms have been present for 1 day and indicates a pain score of 0/10. MEDICAL/SURGICAL HISTORY: Diverticulosis. Diverticulitis. Myocardial infarction. Stroke. Co ronary artery disease. Bleeding ulcer. Tonsillectomy. CABG. Inguinal hernia repair. Cataract s urgery. Colonoscopy. Esophagogastroduodenoscopy. Sinus surgery. COMPARISON: [facility] [place], CT ABDOMEN & PELVIS W/O CONTRAST, 03/27/2018. . FINDINGS: Masses: None Fluid Collections: None Other: A Andrew catheter is present in the bladder which is decompressed.. CONCLUSION: 1. Unremarkable examination with no ascites now identified. Electronically signed by: Jonathon Coker MD Board Certified Radiologist 04/03/2018 5:36 PM EST
[2018-04-03] MEDS: Gabapentin 100 MG Capsule PO SCH (21:46)
[2018-04-04] MEDS: Belladonna Alkaloid/Opium 60 MG Supp RECTAL SCH ×3 (00:55→13:04)
[2018-04-04] MEDS: dilTIAZem 30 MG Tablet PO SCH ×3 (00:55→13:05)
[2018-04-04] MEDS: Sodium Chloride 0.9% 2 ML Flush BID IV.FLUSH SCH ×2 (09:33→21:39)
--- NOTE | 2018-04-04 09:36 | P.PNNEU ---
Subjective Subjective Comments: No cp, no dyspnea, no veneg[place],, no vision loss, Active Medications: Active Medications Acetaminophen (Tylenol) 650 mg PO UNSCH PRN PRN Reason: SEE LABEL COMMENTS Hydrocodone Bitart/Acetaminophen ([place] 5/325) 2 tab PO Q6H PRN PRN Reason: PAIN SCALE 1 TO 5 Last Admin: 03/27/18 09:00 Dose: 2 tab Albuterol (Duoneb Neb ([facility])) 1 ampul NEB Q4HR NEB [facility] Last Admin: 04/04/18 08:11 Dose: 1 ampul Aspirin (Aspirin Chew) 81 mg PO DAILY [facility] Last Admin: 04/04/18 09:33 Dose: 81 mg Belladonna Alkaloids/Opium (B & O Supp) 60 mg RECTAL Q6HR [facility] Last Admin: 04/04/18 06:23 Dose: 60 mg Belladonna Alkaloids/Opium (B & O Supp) 60 mg RECTAL Q6HR PRN PRN Reason: bladder spasms Carbidopa/Levodopa (Sinemet 25/100 Mg) 1 tab PO Q6HR [facility] Last Admin: 04/04/18 06:22 Dose: 1 tab Clonidine HCl (Catapres) 0.1 mg PO UNSCH PRN PRN Reason: SEE LABEL COMMENTS Clonidine HCl (Catapres) 0.2 mg PO Q4HR PRN PRN Reason: sbp > 170 Diltiazem HCl (Cardizem) 30 mg PO Q6H [facility] Last Admin: 04/04/18 06:22 Dose: 30 mg Diphenhydramine HCl (Benadryl) 25 mg PO UNSCH PRN PRN Reason: SEE LABEL COMMENTS Gabapentin (Neurontin) 100 mg PO BID@ [facility] Last Admin: 03/27/18 07:30 Dose: 100 mg Gabapentin (Neurontin) 200 mg PO HS [facility] Last Admin: 04/03/18 21:46 Dose: 200 mg Gelatin (Gelfoam 12 Mm/7 Mm Topical) 1 foam TOPICAL PRN PRN PRN Reason: help stop bleeding from site Gentamicin Sulfate (Gentamicin Inj) 20 mg OTHER WITH DIALYSIS PRN PRN Reason: Dwell Gentamycin Lock Last Admin: 03/30/18 10:55 Dose: 20 mg Haloperidol Lactate (Haldol Inj) 2.5 mg IV.PUSH Q4HR PRN PRN Reason: AGITATION Heparin Sodium (Porcine) (Heparin Inj) 1,000 units OTHER WITH DIALYSIS PRN PRN Reason: Dwell Heparin to Fill Catheter Last Admin: 03/30/18 10:54 Dose: 1,000 units Heparin Sodium (Porcine) (Heparin Inj) 8,000 units OTHER WITH DIALYSIS PRN PRN Reason: for machine prime Heparin Sodium (Porcine) (Heparin Central Flush) 0 unit IV.FLUSH DAILY PRN PRN Reason: SEE DOSE INSTRUCTIONS Diltiazem HCl 125 mg/ Sodium (Chloride) 125 mls @ 5 mls/hr IV.CONT TITRATE PRN ; Protocol PRN Reason: Per Protocol Last Titration: 04/03/18 07:48 Dose: Infused Ceftriaxone Sodium 1,000 mg/ (Sodium Chloride) 100 mls @ 200 mls/hr IV.SIG Q24H [facility] Last Infusion: 04/03/18 17:48 Dose: Infused Dextrose/Sodium Chloride (D5w/1/2 Ns Inj) 1,000 mls @ 42 mls/hr IV.CONT .[id number] [facility] Last Admin: 04/03/18 09:56 Dose: 42 mls/hr Albumin Human (Flexbumin 25% Inj) 100 mls @ 60 mls/hr IV.SIG WITH DIALYSIS PRN PRN Reason: hypotension / volume replace Sodium Chloride (Ns Inj) 1,000 mls @ 0 mls/hr OTHER .Q0M PRN PRN Reason: for prime and rinse back Last Infusion: 04/03/18 07:50 Dose: Infused Sodium Chloride (Ns Inj) 1,000 mls @ 200 mls/hr OTHER .Q5H PRN PRN Reason: for dialyzer flush PRN Sodium Chloride (Ns Inj) 1,000 mls @ 0 mls/hr IV.CONT .Q0M PRN PRN Reason: hypotension / volume replace Sodium Chloride (Ns Inj) 500 mls @ 30 mls/hr IV.SIG .Q10H [facility] Lorazepam (Ativan Inj) 1 mg IV.PUSH Q2H PRN PRN Reason: SEVERE AGITATION Last Admin: 04/02/18 18:32 Dose: 1 mg Mannitol (Mannitol Inj) 12.5 gm IV.PUSH UNSCH PRN PRN Reason: hypotension / volume replace Morphine Sulfate (Morphine Inj) 2 mg IV.PUSH Q4H PRN PRN Reason: PAIN SCALE 6 TO 10 Last Admin: 04/01/18 05:41 Dose: 2 mg Nitroglycerin (Nitrostat Sl) 0.4 mg SL Q5M PRN PRN Reason: CHEST PAIN Ondansetron HCl (Zofran Inj) 4 mg IV.PUSH UNSCH PRN PRN Reason: NAUSEA OR VOMITING Risperidone (Risperdal) 0.25 mg PO BID [facility] Last Admin: 04/04/18 09:33 Dose: 0.25 mg Sodium Chloride (Ns Flush) 5 ml IV.FLUSH PRN PRN PRN Reason: flush each lumen during HD Sodium Chloride (Ns Flush) 0 ml IV.FLUSH PRN PRN PRN Reason: SEE DOSE INSTRUCTIONS Sodium Chloride (Ns Flush) 2 ml IV.FLUSH BID [facility] Last Admin: 04/04/18 09:33 Dose: 2 ml Sodium Chloride (Ns Flush) 2 ml IV.FLUSH PRN PRN PRN Reason: FLUSH AFTER USING IV ACCESS Last Admin: 04/02/18 10:03 Dose: 2 ml Allergies/Adverse Reactions: Allergies Allergy/AdvReac Type Severity Reaction Status Date / Time banana Allergy Severe Swelling Verified 03/25/18 19:27 walnut Allergy Severe HIVES Verified 03/25/18 19:27 tizanidine Allergy Intermediate BAD Verified 03/25/18 19:27 REACTION lisinopril Allergy Unknown Dizziness Verified 03/25/18 19:27 losartan Allergy Unknown Dizziness Verified 03/25/18 19:27 simvastatin Allergy Unknown Dizziness Verified 03/25/18 19:27 codeine AdvReac Severe KNOCKS HIM Verified 03/25/18 19:27 OUT RED YEAST RICE Allergy Unknown Itching Uncoded 03/25/18 19:27 Review of Systems All other systems reviewed negative except as stated in HPI Physical Exam Vital signs: Vital Signs 04/03/18 10:00 04/03/18 11:00 04/03/18 11:27 Temperature 99.3 F Pulse Rate 100 H 100 H 101 H Respiratory Rate 20 Blood Pressure 136/87 Pulse Oximetry 04/03/18 11:39 04/03/18 12:00 04/03/18 12:43 Temperature Pulse Rate 104 H 99 H 100 H Respiratory Rate 17 Blood Pressure Pulse Oximetry 04/03/18 14:00 04/03/18 15:00 04/03/18 15:56 Temperature 98.4 F Pulse Rate 88 72 89 Respiratory Rate 19 Blood Pressure 127/69 Pulse Oximetry 97 04/03/18 16:00 04/03/18 16:02 04/03/18 16:21 Temperature Pulse Rate 89 82 90 Respiratory Rate 17 Blood Pressure Pulse Oximetry 04/03/18 17:33 04/03/18 19:00 04/03/18 20:00 Temperature Pulse Rate 105 H 94 H 92 H Respiratory Rate 16 Blood Pressure 141/63 H Pulse Oximetry 98 04/03/18 20:22 04/03/18 21:00 04/03/18 22:00 Temperature Pulse Rate 87 104 H 90 Respiratory Rate 16 Blood Pressure Pulse Oximetry 04/03/18 23:00 04/03/18 23:33 04/04/18 00:00 Temperature 98.4 F Pulse Rate 94 H 94 H 92 H Respiratory Rate 18 20 Blood Pressure 155/76 H Pulse Oximetry 98 04/04/18 01:00 04/04/18 02:00 04/04/18 03:00 Temperature Pulse Rate 90 90 90 Respiratory Rate Blood Pressure Pulse Oximetry 04/04/18 04:00 04/04/18 05:00 04/04/18 06:00 Temperature Pulse Rate 93 H 93 H 92 H Respiratory Rate 16 Blood Pressure 120/69 Pulse Oximetry 98 04/04/18 08:12 04/04/18 09:25 Temperature 98.4 F Pulse Rate 82 85 Respiratory Rate 18 18 Blood Pressure 153/65 H Pulse Oximetry 94 L 97 Intake & Output 04/03/18 04/04/18 04/04/18 18:59 06:59 18:59 Intake Total 51104 / 32163 480 / 480 Output Total 875 / 875 550 / 550 Balance 48702 / 36154 -70 / -70 Weight 50 [place]: [place] [address] / 08232 D5W/1/2 NS Inj 1,000 ML @ 42 1000 / 1000 mls/hr IV.CONT .[id number] [facility] Rx# :[id number] Cardizem Inj 125 MG In NS Inj 125 / 125 100 ML @ 5 MG/HR 5 mls/hr IV. CONT TITRATE PRN Rx#:[id number] Rocephin Inj 1,000 MG In NS Inj 100 / 100 100 ML @ 200 mls/hr IV.SIG Q24H [facility] Rx#:[id number] NS Inj 1,000 ML @ As Directed 1000 / 1000 OTHER .Q0M PRN Rx#:[id number] Oral 480 / 480 480 / 480 Bladder Irrigation Fluid - 100 / 100 Amount Retained Indwelling Urethral Catheter 100 / 100 Output: Urine Amount (Catheter) 875 / 875 550 / 550 Indwelling Urethral Catheter 875 / 875 550 / 550 Other: Bladder Irrigation Fluid - Amount Instilled Indwelling Urethral Catheter 600 Bladder Irrigation Fluid - Amount Drained Indwelling Urethral Catheter 500 Date of Last Bowel Movement 03/28/18 03/28/18 Narrative: GENERAL: in NAD, SKIN: Warm and dry. HEAD: Atraumatic. Normocephalic. EYES: Pupils equal and round. ENT: No nasal bleeding or discharge. NECK: Trachea midline. No JVD. CARDIOVASCULAR: Regular rate and rhythm. RESPIRATORY: No accessory muscle use. GASTROINTESTINAL: Abdomen soft, non-tender, nondistended. MUSCULOSKELETAL: Extremities without clubbing, cyanosis, or edema. NEUROLOGICAL: Awake alert sitting up eating breakfast. Oriented 2-3. Knew the month did not know the exact year. Was able name the current president. Smiling pleasant, extraocular once intact visual manuel grossly full mild left hemiparesis left hemisensory left-sided 4+ out of 5 - Constitutional no acute distress - Routine HEENT Exam Head: Present: normocephalic Eye: Present: EOMI - Urinary Catheter Management Indwelling Urethral Catheter Cath placed during this visit: yes, but has since been removed by the nurse Reason for continuing: Hourly intake/output Insertion date: 03/28/18 Insertion time: 09:15 Removal date: 03/28/18 Removal time: 13:47 Review/Management - Diagnosis (1) Metabolic encephalopathy Code(s): G93.41 - Metabolic encephalopathy Status: Acute Current Visit: Yes (2) 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 Code(s): I69.30 - Unspecified sequelae of cerebral infarction Status: Acute Current Visit: Yes (3) Acute kidney injury Code(s): N17.9 - Acute kidney failure, unspecified Status: Acute Current Visit: Yes (4) Bilateral hydronephrosis Code(s): N13.30 - Unspecified hydronephrosis Status: Acute Current Visit: Yes (5) Delirium Code(s): R41.0 - Disorientation, unspecified Status: Acute Current Visit: Yes (6) Atrial flutter with rapid ventricular response Code(s): I48.92 - Unspecified atrial flutter Status: Acute Current Visit: Yes - Review/Management Plan: Metabolic/uremic encephalopathy Suspect his mental status should improve his kidney function improves. Mild left hemiparesis which could be explained by his old deficit. However current infarct cannot be excluded History of previous right thalamic stroke MRI brain scan negative for new stroke Recommendation Mental status significantly improved. Oriented 2-3. Anticoagulation for history of a flutter/A. fib as medically feasible May require inpatient rehab versus home with PT No driving Neurology sign off
--- NOTE | 2018-04-04 11:23 | P.PNURO ---
Subjective Patient symptoms today: Pt seen and examined. Feeling better today. Objective Vital Signs: Vital Signs 04/03/18 11:27 04/03/18 11:39 04/03/18 12:00 Temperature 99.3 F Pulse Rate 101 H 104 H 99 H Respiratory Rate 20 17 Blood Pressure 136/87 Pulse Oximetry 04/03/18 12:43 04/03/18 14:00 04/03/18 15:00 Temperature Pulse Rate 100 H 88 72 Respiratory Rate Blood Pressure Pulse Oximetry 04/03/18 15:56 04/03/18 16:00 04/03/18 16:02 Temperature 98.4 F Pulse Rate 89 89 82 Respiratory Rate 19 Blood Pressure 127/69 Pulse Oximetry 97 04/03/18 16:21 04/03/18 17:33 04/03/18 19:00 Temperature Pulse Rate 90 105 H 94 H Respiratory Rate 17 Blood Pressure Pulse Oximetry 04/03/18 20:00 04/03/18 20:22 04/03/18 21:00 Temperature Pulse Rate 92 H 87 104 H Respiratory Rate 16 16 Blood Pressure 141/63 H Pulse Oximetry 98 04/03/18 22:00 04/03/18 23:00 04/03/18 23:33 Temperature Pulse Rate 90 94 H 94 H Respiratory Rate 18 Blood Pressure Pulse Oximetry 04/04/18 00:00 04/04/18 01:00 04/04/18 02:00 Temperature 98.4 F Pulse Rate 92 H 90 90 Respiratory Rate 20 Blood Pressure 155/76 H Pulse Oximetry 98 04/04/18 03:00 04/04/18 04:00 04/04/18 05:00 Temperature Pulse Rate 90 93 H 93 H Respiratory Rate 16 Blood Pressure 120/69 Pulse Oximetry 98 04/04/18 06:00 04/04/18 07:00 04/04/18 08:00 Temperature Pulse Rate 92 H 85 82 Respiratory Rate Blood Pressure Pulse Oximetry 04/04/18 08:12 04/04/18 09:00 04/04/18 09:25 Temperature 98.4 F Pulse Rate 82 88 85 Respiratory Rate 18 18 Blood Pressure 153/65 H Pulse Oximetry 94 L 97 04/04/18 10:00 04/04/18 11:00 Temperature Pulse Rate 88 80 Respiratory Rate Blood Pressure Pulse Oximetry Intake & Output 04/03/18 04/04/18 04/04/18 18:59 06:59 18:59 Intake Total 02273 / 83579 480 / 480 Output Total 875 / 875 550 / 550 Balance 08382 / 94910 -70 / -70 Weight 50 [place]: [place] [address] / 64667 D5W/1/2 NS Inj 1,000 ML @ 42 1000 / 1000 mls/hr IV.CONT .[id number] [facility] Rx# :[id number] Cardizem Inj 125 MG In NS Inj 125 / 125 100 ML @ 5 MG/HR 5 mls/hr IV. CONT TITRATE PRN Rx#:[id number] Rocephin Inj 1,000 MG In NS Inj 100 / 100 100 ML @ 200 mls/hr IV.SIG Q24H [facility] Rx#:[id number] NS Inj 1,000 ML @ As Directed 1000 / 1000 OTHER .Q0M PRN Rx#:[id number] Oral 480 / 480 480 / 480 Bladder Irrigation Fluid - 100 / 100 Amount Retained Indwelling Urethral Catheter 100 / 100 Output: Urine Amount (Catheter) 875 / 875 550 / 550 Indwelling Urethral Catheter 875 / 875 550 / 550 Other: Bladder Irrigation Fluid - Amount Instilled Indwelling Urethral Catheter 600 Bladder Irrigation Fluid - Amount Drained Indwelling Urethral Catheter 500 Date of Last Bowel Movement 03/28/18 03/28/18 03/28/18 Result Diagrams: 03/30/18 06:03 04/03/18 06:01 Imaging: Impressions Abdomen Ultrasound 04/03/18 00:00 CONCLUSION: 1. Unremarkable examination with no ascites now identified. Medications and IVs: Active Medications Generic Name Dose Route Start Last Admin Trade Name Freq PRN Reason Stop Dose Admin Acetaminophen 650 mg 03/27/18 10:21 Tylenol PO UNSCH PRN SEE LABEL COMMENTS Hydrocodone Bitart/Acetaminophen 2 tab 03/25/18 23:54 03/27/18 09:00 [place] 5/325 PO 2 tab Q6H PRN Administration PAIN SCALE 1 TO 5 Aspirin 81 mg 03/27/18 09:00 04/04/18 09:33 Aspirin Chew PO 81 mg DAILY [facility] Administration Belladonna Alkaloids/Opium 60 mg 04/03/18 18:00 04/04/18 06:23 B & O Supp RECTAL 60 mg Q6HR [facility] Administration Belladonna Alkaloids/Opium 60 mg 03/28/18 14:32 B & O Supp RECTAL Q6HR PRN bladder spasms Carbidopa/Levodopa 1 tab 03/30/18 18:00 04/04/18 06:22 Sinemet 25/100 Mg PO 1 tab Q6HR [facility] Administration Clonidine HCl 0.1 mg 03/27/18 10:21 Catapres PO UNSCH PRN SEE LABEL COMMENTS Clonidine HCl 0.2 mg 03/28/18 10:38 Catapres PO Q4HR PRN sbp > 170 Diltiazem HCl 30 mg 03/30/18 06:00 04/04/18 06:22 Cardizem PO 30 mg Q6H [facility] Administration Diphenhydramine HCl 25 mg 03/27/18 10:21 Benadryl PO UNSCH PRN SEE LABEL COMMENTS Gabapentin 100 mg 03/26/18 13:00 03/27/18 07:30 Neurontin PO 100 mg BID@08,13 [facility] Administration Gabapentin 200 mg 03/26/18 21:00 04/03/18 21:46 Neurontin PO 200 mg HS [facility] Administration Gelatin 1 foam 03/27/18 10:21 Gelfoam 12 Mm/7 Mm Topical TOPICAL PRN PRN help stop bleeding from site Gentamicin Sulfate 20 mg 03/27/18 10:21 03/30/18 10:55 Gentamicin Inj OTHER 20 mg WITH DIALYSIS PRN Administration Dwell Gentamycin Lock Haloperidol Lactate 2.5 mg 03/27/18 18:16 Haldol Inj IV.PUSH Q4HR PRN AGITATION Heparin Sodium (Porcine) 1,000 units 03/27/18 10:21 03/30/18 10:54 Heparin Inj OTHER 1,000 units WITH DIALYSIS PRN Administration Dwell Heparin to Fill Catheter Heparin Sodium (Porcine) 8,000 units 03/27/18 10:21 Heparin Inj OTHER WITH DIALYSIS PRN for machine prime Heparin Sodium (Porcine) 0 unit 03/27/18 12:17 Heparin Central Flush IV.FLUSH DAILY PRN SEE DOSE INSTRUCTIONS Diltiazem HCl 125 mg/ Sodium 125 mls @ 5 mls/hr 03/31/18 11:00 04/03/18 07:48 Chloride IV.CONT Infused TITRATE PRN Titration Per Protocol Protocol 5 MG/HR Ceftriaxone Sodium 1,000 mg/ 100 mls @ 200 mls/hr 03/31/18 14:00 04/03/18 17: 48 Sodium Chloride IV.SIG Infused Q24H [facility] Infusion Dextrose/Sodium Chloride 1,000 mls @ 42 mls/hr 04/02/18 08:22 04/03/18 09:56 D5w/1/2 Ns Inj IV.CONT 42 mls/hr .[id number] [facility] Administration Albumin Human 100 mls @ 60 mls/hr 03/27/18 10:21 Flexbumin 25% Inj IV.SIG WITH DIALYSIS PRN hypotension / volume replace Sodium Chloride 1,000 mls @ 0 mls/hr 03/27/18 10:21 04/03/18 07:50 Ns Inj OTHER Infused .Q0M PRN Infusion for prime and rinse back As Directed Sodium Chloride 1,000 mls @ 200 mls/hr 03/27/18 10:21 Ns Inj OTHER .Q5H PRN for dialyzer flush PRN Sodium Chloride 1,000 mls @ 0 mls/hr 03/27/18 10:21 Ns Inj IV.CONT .Q0M PRN hypotension / volume replace As Directed Sodium Chloride 500 mls @ 30 mls/hr 03/28/18 14:00 Ns Inj IV.SIG .Q10H [facility] Lorazepam 1 mg 03/27/18 18:18 04/02/18 18:32 Ativan Inj IV.PUSH 1 mg Q2H PRN Administration SEVERE AGITATION Mannitol 12.5 gm 03/27/18 10:21 Mannitol Inj IV.PUSH UNSCH PRN hypotension / volume replace Morphine Sulfate 2 mg 03/25/18 23:54 04/01/18 05:41 Morphine Inj IV.PUSH 2 mg Q4H PRN Administration PAIN SCALE 6 TO 10 Nitroglycerin 0.4 mg 03/27/18 10:21 Nitrostat Sl SL Q5M PRN CHEST PAIN Ondansetron HCl 4 mg 03/27/18 10:21 Zofran Inj IV.PUSH UNSCH PRN NAUSEA OR VOMITING Risperidone 0.25 mg 03/29/18 21:00 04/04/18 09:33 Risperdal PO 0.25 mg BID [facility] Administration Sodium Chloride 5 ml 03/27/18 10:21 Ns Flush IV.FLUSH PRN PRN flush each lumen during HD Sodium Chloride 0 ml 03/27/18 12:17 Ns Flush IV.FLUSH PRN PRN SEE DOSE INSTRUCTIONS Sodium Chloride 2 ml 03/28/18 21:00 04/04/18 09:33 Ns Flush IV.FLUSH 2 ml BID [facility] Administration Sodium Chloride 2 ml 03/28/18 13:44 04/02/18 10:03 Ns Flush IV.FLUSH 2 ml PRN PRN Administration FLUSH AFTER USING IV ACCESS Objective Remarks: Abd:soft,nt,nd Bladder not distended 03/28 Abd:soft,nt,nd Bladder not distended 03/29 Abd:soft,nt,nd Bladder not distended Bhakta blood tinged. 04/01 Abd:soft,nt,nd Bhakta: bloody 04/02 Abd:soft,nt,nd Bhakta: blood tinged 04/03 Abd:soft,nt,nd Bhakta: blood tinged 04/04 Abd:soft,nt,nd Bhakta: blood tinged Assessment and Plan - Plan 77 y.o male admitted with abdominal pain; ARF and elevated PSA Maintain bhakta drainage for now CT scan later today Nephrology consulted. 03/28 77y.o. male with ARF and bilateral hydro with elevated PSA Will plan for cysto with b/l RPR's today in [place] with possible stent insertion D/W pt's 03/29 77y.o. male with ARF and bilateral hydro with elevated PSA S/P cysto with b/l RPR's with b/l stent insertion Creatinine down to 3.9 today. Had dialysis recently. Follow u/o. Maintain bhakta catheter. Irrigate prn. 04/01 77 y.o male with ARF and bilateral hydro s/p b/l JJ stent insertion Creatinine continues to improve s/p b/l Jj stent insertion Maintain bhakta catheter and irrigate please 04/02 77 y.o male with ARF and bilateral hydro s/p b/l JJ stent insertion Creatinine continues to improve s/p b/l Jj stent insertion; down to 2.0 Maintain bhakta catheter and irrigate please 04/03 77 y.o male with ARF and bilateral hydro s/p b/l JJ stent insertion Creatinine continues to improve s/p b/l Jj stent insertion; down to 1.8 today. Maintain bhakta catheter and irrigate please 04/04 77 y.o male with ARF and bilateral hydro s/p JJ stent insertion with elevated PSA Maintain bhakta catheter as hematuria is slowly clearing and ARF is resolving Will need prostate needle bx as outpt.
[2018-04-04] MEDS: Dextrose 5%/NaCl 0.45% Inj 1,000 ML IV.CONT SCH (13:04)
--- NOTE | 2018-04-04 13:33 | P.PNPAL ---
Reason for Visit Reason for visit: a. To assist with evaluation and management of symptoms including: Pain, altered mental status b. To assist medical decision maker(s) with: better understanding of current medical conditions; weighing benefits/burdens of medical treatment options; making medical treatment decisions. Subjective Subjective/Interval History: Follow-up medically necessary for symptom management and family support. Patient seen and examined in his room in the presence of his spouse and daughter. Patient is sitting up in bed awake, alert and oriented to self, place and partly situation. Patient is able to follow simple commands and more conversant today. Occasionally tearful, though states that "they are tears of phuc" when asked. Patient denying pain at this time. Only endorsing some discomfort to his sacral area. Patient is also started eating slightly more than he was in the past few days. Discussion outside patient's room with patient's daughter Aliya Medina. Introduced palliative care and its role in symptom management and establishment of goals of medical treatment. Provided her with patient's medical status update. Patient's daughter apologizing for not wanting to talk to palliative care yesterday on 04/03/18. She thought palliative care was hospice. Discussed patient's persistent elevated PSA and his prior decision of not wanting to proceed with biopsy to rule out prostate cancer. According to patient's daughter, during discussion with urology, patient stated that he was agreeable to having the biopsy done except he did not want the physician to inform him when he is doing it. Per urology notes 04/04/18, "will need prostate biopsy is outpatient". Discussed need to further discuss with patient his wishes. It appears goals remain aggressive at this time. Neurology following. Physical therapy consulted, recommending PT at rehab. . Family/Friend Interactions: See interval note. . Advance Directives Living Will: Never completed Health Care Surrogate: Never completed Durable Power of Animal Cytologist: Never completed Health Care Surrogate Name and Number: HCP: Karrie Segura [phone]/ Documented care wishes:: Spouse is unsure whether patient has ever completed a living will or not. . Objective Vital Signs: Vital Signs 04/03/18 14:00 04/03/18 15:00 04/03/18 15:56 Temperature 98.4 F Pulse Rate 88 72 89 Respiratory Rate 19 Blood Pressure 127/69 Pulse Oximetry 97 04/03/18 16:00 04/03/18 16:02 04/03/18 16:21 Temperature Pulse Rate 89 82 90 Respiratory Rate 17 Blood Pressure Pulse Oximetry 04/03/18 17:33 04/03/18 19:00 04/03/18 20:00 Temperature Pulse Rate 105 H 94 H 92 H Respiratory Rate 16 Blood Pressure 141/63 H Pulse Oximetry 98 04/03/18 20:22 04/03/18 21:00 04/03/18 22:00 Temperature Pulse Rate 87 104 H 90 Respiratory Rate 16 Blood Pressure Pulse Oximetry 04/03/18 23:00 04/03/18 23:33 04/04/18 00:00 Temperature 98.4 F Pulse Rate 94 H 94 H 92 H Respiratory Rate 18 20 Blood Pressure 155/76 H Pulse Oximetry 98 04/04/18 01:00 04/04/18 02:00 04/04/18 03:00 Temperature Pulse Rate 90 90 90 Respiratory Rate Blood Pressure Pulse Oximetry 04/04/18 04:00 04/04/18 05:00 04/04/18 06:00 Temperature Pulse Rate 93 H 93 H 92 H Respiratory Rate 16 Blood Pressure 120/69 Pulse Oximetry 98 04/04/18 07:00 04/04/18 08:00 04/04/18 08:12 Temperature Pulse Rate 85 82 82 Respiratory Rate 18 Blood Pressure Pulse Oximetry 94 L 04/04/18 09:00 04/04/18 09:25 04/04/18 10:00 Temperature 98.4 F Pulse Rate 88 85 88 Respiratory Rate 18 Blood Pressure 153/65 H Pulse Oximetry 97 04/04/18 11:00 Temperature Pulse Rate 80 Respiratory Rate Blood Pressure Pulse Oximetry Intake & Output 04/03/18 04/04/18 04/04/18 18:59 06:59 18:59 Intake Total 42289 / 90625 480 / 480 Output Total 875 / 875 550 / 550 Balance 06654 / 36317 -70 / -70 Weight 50 [place]: [place] 11635 / 66290 D5W/1/2 NS Inj 1,000 ML @ 42 1000 / 1000 mls/hr IV.CONT .[id number] [facility] Rx# :[id number] Cardizem Inj 125 MG In NS Inj 125 / 125 100 ML @ 5 MG/HR 5 mls/hr IV. CONT TITRATE PRN Rx#:[id number] Rocephin Inj 1,000 MG In NS Inj 100 / 100 100 ML @ 200 mls/hr IV.SIG Q24H [facility] Rx#:[id number] NS Inj 1,000 ML @ As Directed 1000 / 1000 OTHER .Q0M PRN Rx#:[id number] Oral 480 / 480 480 / 480 Bladder Irrigation Fluid - 100 / 100 Amount Retained Indwelling Urethral Catheter 100 / 100 Output: Urine Amount (Catheter) 875 / 875 550 / 550 Indwelling Urethral Catheter 875 / 875 550 / 550 Other: Bladder Irrigation Fluid - Amount Instilled Indwelling Urethral Catheter 600 Bladder Irrigation Fluid - Amount Drained Indwelling Urethral Catheter 500 Date of Last Bowel Movement 03/28/18 03/28/18 03/28/18 Physical Exam: CONSTITUTIONAL/GENERAL: This is an elderly, thin patient, in no apparent distress. TUBES/LINES/DRAINS: PIV, coud Andrew catheter, bilateral upper extremities to soft restraints SKIN: Ecchymoses on upper extremities. No wounds seen anteriorly. Normothermic. HEAD: Atraumatic. Normocephalic. EYES: Pupils reactive to light. Fundi not examined. ENT: Hearing grossly normal. Moist oral mucosa NECK: Trachea midline. Supple, nontender. CARDIOVASCULAR: Irregular rate and rhythm without murmurs. Peripheral pulses symmetric. RESPIRATORY/CHEST: Symmetric, unlabored respirations. Clear to auscultation. No wheezes, rales, or rhonchi. GASTROINTESTINAL: Abdomen soft, non-tender, nondistended. No guarding. Bowel sounds present. GENITOURINARY: Without palpable bladder distension. Andrew catheter. Resolving hematuria. MUSCULOSKELETAL: Extremities without edema. No mottling or clubbing. LYMPHATICS: Did not assess NEUROLOGICAL: Awake, alert and partially oriented. Following simple commands with all 4 extremities. PSYCHIATRIC: No obvious anxiety/depression. no apparent hallucinations or other psychotic thought process. . Diagnostic Tests Laboratory: Laboratory Results - last 72 hr 04/02/18 04/03/18 05:23 06:01 Sodium 144 144 Potassium 3.2 L 4.1 D Chloride 107 110 H Carbon Dioxide 28.1 25.2 Anion Gap 9 9 BUN 36 H 34 H Creatinine 2.04 H 1.87 H Estimated GFR 32 L 35 L Random Glucose 116 H 100 Calcium 8.9 8.8 Phosphorus 2.5 3.1 Albumin 2.9 L 2.7 L Result Diagrams: 03/30/18 06:03 04/03/18 06:01 Microbiology: Microbiology 03/31/18 12:40 Urine Culture - Final Catheterized Urine No growth in 48 hours Imaging: Abdomen/Pelvis CT 03/27/18 00:00 CONCLUSION: 1. New moderate amount of ascitic fluid present. 2. Nonspecific bowel gas pattern which may represent an ileus or gastroenteritis. 3. New small bilateral pleural effusions with consolidation in the lung bases right greater than left. The heart size remains enlarged. 4. The kidneys are stable in appearance with bilateral hydronephrosis again noted. Catheter Placement 03/27/18 00:00 CONCLUSION: 1. Uncomplicated line placement as above. The catheter functions well and is ready for use. Chest X-Ray 03/28/18 00:00 CONCLUSION: Radiographic pattern suggesting fluid overload. Head CT 04/01/18 00:00 CONCLUSION: Atrophy, otherwise negative for an acute process. Edy Almonte MD FACR . Bone Scan Nuclear Medicine 04/02/18 00:00 CONCLUSION: 1. No evidence of bony metastatic disease. Head MRI 04/02/18 00:00 CONCLUSION: 1. Cerebral atrophy. 2. Old right thalamic lacunar infarct. 3. No obvious metastatic disease. 4. Minimal nonspecific white matter changes. Abdomen Ultrasound 04/03/18 00:00 CONCLUSION: 1. Unremarkable examination with no ascites now identified. Procedures: 03/27/18-left IJ Vas-Cath placement by interventional radiology 03/27/18-hemodialysis started Assessment and Plan - Disease Oriented Problem List (1) Delirium (2) Acute kidney injury (3) Bilateral hydronephrosis (4) Elevated PSA (5) Atrial flutter with rapid ventricular response - Symptom Scale (1) Pain 0-10 Scale: 3 (2) Altered mental status 0-10 Scale: Unable to quantify Pertinent Non-Medical Issues: Psychosocial: Patient is originally from [place]. He moved to [place] 35 years ago. Patient's highest level is college degree. 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 Patient has been to his current for 38 years. Patient served in the [employer] in [place] war. Patient has 1 adult daughter Aliya Medina who resides in [place]. 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 Ethical issues impacting care: None identified at this time. . Important Contacts: Spouse-Karrie Segura-[phone] home/[phone] Daughter-Aliya Medina-[phone] . Prognosis: Mr. 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 Patient presented to the emergency room on 03/25/2018 with complaints of worsening right upper and lower quadrant abdominal pain radiating to the right flank. Hospital course complicated with agitation, persistent altered mental status, acute kidney injury requiring short-term hemodialysis( now resolved), atrial flutter with RVR. Given multiple ongoing comorbidities this patient remains at high risk for further complications, deterioration and decline. Prognosis is guarded. . Code Status: Full Code Plan: PLAN: Legal decision maker: Patient is currently confused/agitated and not able to participate in medical decision making. It is not known whether patient will regain capacity to participate in making his own medical decisions. According to [place] statute, patient spouse Karrie Segura will serve as patient`s healthcare decision maker proxy. Goals: Remain aggressive. Discussion outside patient's room with patient's daughter Aliya Medina.Discussed patient's persistent elevated PSA and his prior decision of not wanting to proceed with biopsy to rule out prostate cancer. According to patient's daughter, during discussion with urology, patient stated that he was agreeable to having the biopsy done except he did not want the physician to inform him when he is doing it. Per urology notes 04/04, "will need prostate biopsy is outpatient". Discussed need to further discuss with patient his wishes. CODE STATUS: Full code SYMPTOMS: * Pain: Patient is at risk for pain considering bedbound status, and surgical intervention. Hydrocodone/acetaminophen 5/325 2 tabs p.o. every 6 hours prn and morphine sulfate 2 mg IVP every 4 hours prn available for pain. Patient denying pain but complaining of discomfort to his sacral area. Per patient repositioning usually relieves the discomfort. Continue to monitor for signs and symptoms of pain. * Altered mental status: History of CVA. Recent onset of agitation and altered mentation after hemodialysis. Head CT negative for any acute intracranial abnormality. Patient scheduled to go for an MRI brain. Patient's neuro status significantly improved. Alert and partially oriented. Continue with neuro checks. Palliative care will continue to follow the patient during hospital course as condition evolves, to assist patient/decision-maker with understanding of their medical conditions, weighing benefits/burdens of treatment options, for clarification of goals of treatment. Additionally will assist with any symptoms of palliative concern Attestation Attestation: To help prompt me to consider important information that might be impacting today's encounter and assessment, information from prior notes written by myself or my colleagues may have been "brought forward" into today's note. My signature on this note, however, is an attestation that I personally performed the exam, history, and/or decision-making noted today, and, unless otherwise indicated, the interactions with patient, family, and staff as well as the review of records all occurred today. I also attest that the listed assessment and stated plan reflect my best clinical judgment today based on the combination of historical information, prior notes, and today's exam/ interactions. When time spent is documented, it refers only to time spent today by the signer, or if indicated, combined time spent today by collaborating physician/nurse practitioner.
--- NOTE | 2018-04-04 19:30 | P.PNIM ---
Subjective Interval history: more alert today. Physical Exam Vital signs: Last Vital Signs Temp 98.9 F 04/04/18 16:00 Pulse 78 04/04/18 18:00 Resp 16 04/04/18 16:00 BP 116/62 04/04/18 16:00 Pulse Ox 96 04/04/18 16:00 Narrative: Gen: THINI heart reg lung course bs abd s/nt ext no edema restrained. bhakta. bloody urine --> but less dark from 04/01 Results Labs CBC & Chem 7: 04/05/18 06:05 04/05/18 06:05 Assessment and Plan Assessment (1) Acute kidney injury: Code(s): N17.9 - Acute kidney failure, unspecified Status: Acute (2) Bilateral hydronephrosis: Code(s): N13.30 - Unspecified hydronephrosis Status: Acute Plan DAINA with bilateral hydro and severe right abdomen and flank pain. - Concern for perinephric stranding and fluid collection adjacent to right kidney. - Pt was seen by urology and prostate is "rock hard." Concern for prostate ca and likely some obstruction. - PSA elevated at 159 - Pt underwent Cystoscopy, right retrograde pyelogram, right double-J stent insertion with left double-J stent insertion on 03/28/[address] Griffith - Renal function worsened on 03/27 with Creatinine over 6 and vascath and HD initiated 03/27. Cr on 03/28/18 increased again to 7.30 - Pt developed severe agitation/delirium at the end of HD. unclear etiology. ? HD related. doubt cva. likely metabolic. exclude infection - Pt had second HD on 03/28/18 and responded better and is clinically improving - Creatinine stable - Case reviewed with Nephrology, Dr. Gilbert, (04/02/18). Creatinine continues to improve and Nephrology will likely sign off case in the next few days. - Case reviewed with Urology, Dr. Loco Griffith (04/02/18). - Difficult to prognosticate given lack of prior w/u and data. - Case discussed at length with pt's (at bedside) and daughter (by phone). - Will obtain MRI brain without contrast, r/o brain metastasis contributing to AMS. Case d/w Radiology. GFR too low for contrast study. - Bone scan --> negative - MRI brain --> no acute findings - appreciate input from Neurology - appreciate input from Palliative - repeat labs in AM - anticipate discharge to SNF in next few days - will discuss case with Urology, Dr. Griffith aflutter/rvr likely stress induced converted with cardizem gtt gtt stopped and converted to po diltiazem - Pt again receiving PO diltiazem with rate control Pulmonary edema related to daina - CXR (03/28/18) --> fluid overload - Improving after HD - Cont. 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
[2018-04-04] MEDS: Gabapentin 100 MG Capsule PO SCH (21:39)
[2018-04-05] MEDS: dilTIAZem 30 MG Tablet PO SCH ×2 (01:02→05:21)
[2018-04-05] MEDS: Belladonna Alkaloid/Opium 60 MG Supp RECTAL SCH ×6 (01:02→18:58)
[2018-04-05 06:44] LABS: Baso # (Auto) 0.1 th/mm3 (0.0-0.2); Baso % (Auto) 0.9 % (0.0-2.0); Eos # (Auto) 0.9 th/mm3 (0.0-0.4); Eos % (Auto) 8.7 % (0.0-4.0); Hemoglobin 11.9 gm/dL (13.0-17.0); Lymph # (Auto) 1.3 th/mm3 (1.0-4.8); Lymph % (Auto) 13.4 % (9.0-44.0); Mean Corpuscular HGB Conc 33.9 % (32.0-36.0); Mean Corpuscular Hemoglobin 32.4 pg (27.0-34.0); Mean Corpuscular Volume 95.5 fL (80.0-100.0); Mean Platelet Volume 8.6 fL (7.0-11.0); Mono # (Auto) 0.9 th/mm3 (0.0-0.9); Mono % (Auto) 8.9 % (0.0-8.0); Neut # (Auto) 6.8 th/mm3 (1.8-7.7); Neut % (Auto) 68.1 % (16.0-70.0); Red Blood Count 3.67 mil/mm3 (4.50-5.90); Red Cell Distribution Width 12.3 % (11.6-17.2)
[2018-04-05 07:09] LABS: Calcium 8.1 mg/dL (8.5-10.1); Carbon Dioxide 24.1 meq/L (21.0-32.0); Magnesium 1.5 mg/dL (1.5-2.5); Potassium 3.5 meq/L (3.5-5.1)
[2018-04-05 07:20] LABS: White Blood Count 7.9 th/mm3 (4.0-11.0)
[2018-04-05 07:21] LABS: Platelet Count 202 th/mm3 (150-450)
[2018-04-05 07:23] LABS: Platelet Estimate Normal (Normal); Platelet Morphology Clumped (Normal)
[2018-04-05] MEDS: Sodium Chloride 0.9% 2 ML Flush BID IV.FLUSH SCH ×2 (09:24→20:25)
[2018-04-05] MEDS: Gabapentin 100 MG Capsule PO SCH ×3 (09:24→20:24)
--- NOTE | 2018-04-05 10:02 | P.PNURO ---
Subjective Patient symptoms today: Pt seen and examined. Feeling better. Urine clearing. Objective Vital Signs: Vital Signs 04/04/18 10:00 04/04/18 11:00 04/04/18 12:00 Temperature Pulse Rate 88 80 84 Respiratory Rate Blood Pressure Pulse Oximetry 04/04/18 12:57 04/04/18 13:00 04/04/18 14:00 Temperature 98.2 F Pulse Rate 88 88 86 Respiratory Rate 18 Blood Pressure 121/58 L Pulse Oximetry 95 04/04/18 15:00 04/04/18 16:00 04/04/18 17:00 Temperature 98.9 F Pulse Rate 94 H 89 84 Respiratory Rate 16 Blood Pressure 116/62 Pulse Oximetry 96 04/04/18 18:00 04/04/18 19:00 04/04/18 20:00 Temperature 99.0 F Pulse Rate 78 82 88 Respiratory Rate 16 Blood Pressure 135/71 Pulse Oximetry 96 04/04/18 21:00 04/04/18 22:00 04/04/18 23:00 Temperature Pulse Rate 90 89 78 Respiratory Rate Blood Pressure Pulse Oximetry 04/05/18 00:00 04/05/18 01:00 04/05/18 02:00 Temperature 98.2 F Pulse Rate 83 84 85 Respiratory Rate 16 Blood Pressure 134/55 L Pulse Oximetry 97 04/05/18 03:00 04/05/18 04:00 04/05/18 05:00 Temperature Pulse Rate 81 74 82 Respiratory Rate Blood Pressure Pulse Oximetry 04/05/18 05:18 04/05/18 05:52 04/05/18 07:18 Temperature 97.6 F 98.2 F Pulse Rate 76 86 81 Respiratory Rate 16 13 Blood Pressure 180/76 H 151/72 H Pulse Oximetry 99 97 Intake & Output 04/04/18 04/05/18 04/05/18 18:59 06:59 18:59 Intake Total 1420 / 1420 480 / 480 Output Total 450 / 450 750 / 750 Balance 970 / 970 -270 / -270 Intake: IV 1000 / 1000 D5W/1/2 NS Inj 1,000 ML @ 42 1000 / 1000 mls/hr IV.CONT .[id number] [facility] Rx# :[id number] Oral 420 / 420 480 / 480 Output: Urine Amount (Catheter) 450 / 450 750 / 750 Indwelling Urethral Catheter 450 / 450 750 / 750 Other: Date of Last Bowel Movement 03/28/18 03/28/18 03/28/18 # Bowel Movements 0 Result Diagrams: 04/05/18 06:05 04/05/18 06:05 Medications and IVs: Active Medications Generic Name Dose Route Start Last Admin Trade Name Freq PRN Reason Stop Dose Admin Acetaminophen 650 mg 03/27/18 10:21 Tylenol PO UNSCH PRN SEE LABEL COMMENTS Hydrocodone Bitart/Acetaminophen 2 tab 03/25/18 23:54 03/27/18 09:00 Primrose 5/325 PO 2 tab Q6H PRN Administration PAIN SCALE 1 TO 5 Aspirin 81 mg 03/27/18 09:00 04/05/18 09:24 Aspirin Chew PO 81 mg DAILY [facility] Administration Belladonna Alkaloids/Opium 60 mg 04/03/18 18:00 04/05/18 05:21 B & O Supp RECTAL 60 mg Q6HR [facility] Administration Belladonna Alkaloids/Opium 60 mg 03/28/18 14:32 B & O Supp RECTAL Q6HR PRN bladder spasms Carbidopa/Levodopa 1 tab 03/30/18 18:00 04/05/18 05:21 Sinemet 25/100 Mg PO 1 tab Q6HR [facility] Administration Clonidine HCl 0.1 mg 03/27/18 10:21 Catapres PO UNSCH PRN SEE LABEL COMMENTS Clonidine HCl 0.2 mg 03/28/18 10:38 Catapres PO Q4HR PRN sbp > 170 Diltiazem HCl 30 mg 03/30/18 06:00 04/05/18 05:21 Cardizem PO 30 mg Q6H [facility] Administration Diphenhydramine HCl 25 mg 03/27/18 10:21 Benadryl PO UNSCH PRN SEE LABEL COMMENTS Gabapentin 100 mg 03/26/18 13:00 04/05/18 09:24 Neurontin PO 100 mg BID@08,13 [facility] Administration Gabapentin 200 mg 03/26/18 21:00 04/04/18 21:39 Neurontin PO 200 mg HS [facility] Administration Gelatin 1 foam 03/27/18 10:21 Gelfoam 12 Mm/7 Mm Topical TOPICAL PRN PRN help stop bleeding from site Gentamicin Sulfate 20 mg 03/27/18 10:21 03/30/18 10:55 Gentamicin Inj OTHER 20 mg WITH DIALYSIS PRN Administration Dwell Gentamycin Lock Haloperidol Lactate 2.5 mg 03/27/18 18:16 Haldol Inj IV.PUSH Q4HR PRN AGITATION Heparin Sodium (Porcine) 1,000 units 03/27/18 10:21 03/30/18 10:54 Heparin Inj OTHER 1,000 units WITH DIALYSIS PRN Administration Dwell Heparin to Fill Catheter Heparin Sodium (Porcine) 8,000 units 03/27/18 10:21 Heparin Inj OTHER WITH DIALYSIS PRN for machine prime Heparin Sodium (Porcine) 0 unit 03/27/18 12:17 Heparin Central Flush IV.FLUSH DAILY PRN SEE DOSE INSTRUCTIONS Diltiazem HCl 125 mg/ Sodium 125 mls @ 5 mls/hr 03/31/18 11:00 04/03/18 07:48 Chloride IV.CONT Infused TITRATE PRN Titration Per Protocol Protocol 5 MG/HR Dextrose/Sodium Chloride 1,000 mls @ 42 mls/hr 04/02/18 08:22 04/04/18 13:04 D5w/1/2 Ns Inj IV.CONT 42 mls/hr .[id number] [facility] Administration Albumin Human 100 mls @ 60 mls/hr 03/27/18 10:21 Flexbumin 25% Inj IV.SIG WITH DIALYSIS PRN hypotension / volume replace Sodium Chloride 1,000 mls @ 0 mls/hr 03/27/18 10:21 04/03/18 07:50 Ns Inj OTHER Infused .Q0M PRN Infusion for prime and rinse back As Directed Sodium Chloride 1,000 mls @ 200 mls/hr 03/27/18 10:21 Ns Inj OTHER .Q5H PRN for dialyzer flush PRN Sodium Chloride 1,000 mls @ 0 mls/hr 03/27/18 10:21 Ns Inj IV.CONT .Q0M PRN hypotension / volume replace As Directed Sodium Chloride 500 mls @ 30 mls/hr 03/28/18 14:00 Ns Inj IV.SIG .Q10H [facility] Lorazepam 1 mg 03/27/18 18:18 04/02/18 18:32 Ativan Inj IV.PUSH 1 mg Q2H PRN Administration SEVERE AGITATION Mannitol 12.5 gm 03/27/18 10:21 Mannitol Inj IV.PUSH UNSCH PRN hypotension / volume replace Morphine Sulfate 2 mg 03/25/18 23:54 04/01/18 05:41 Morphine Inj IV.PUSH 2 mg Q4H PRN Administration PAIN SCALE 6 TO 10 Nitroglycerin 0.4 mg 03/27/18 10:21 Nitrostat Sl SL Q5M PRN CHEST PAIN Ondansetron HCl 4 mg 03/27/18 10:21 Zofran Inj IV.PUSH UNSCH PRN NAUSEA OR VOMITING Risperidone 0.25 mg 03/29/18 21:00 04/05/18 09:24 Risperdal PO 0.25 mg BID ENMANUEL Administration Sodium Chloride 5 ml 03/27/18 10:21 Ns Flush IV.FLUSH PRN PRN flush each lumen during HD Sodium Chloride 0 ml 03/27/18 12:17 Ns Flush IV.FLUSH PRN PRN SEE DOSE INSTRUCTIONS Sodium Chloride 2 ml 03/28/18 21:00 04/05/18 09:24 Ns Flush IV.FLUSH Not Given BID ENMANUEL Sodium Chloride 2 ml 03/28/18 13:44 04/02/18 10:03 Ns Flush IV.FLUSH 2 ml PRN PRN Administration FLUSH AFTER USING IV ACCESS Objective Remarks: Abd:soft,nt,nd Bladder not distended 03/28 Abd:soft,nt,nd Bladder not distended 03/29 Abd:soft,nt,nd Bladder not distended Bhakta blood tinged. 04/01 Abd:soft,nt,nd Bhakta: bloody 04/02 Abd:soft,nt,nd Bhakta: blood tinged 04/03 Abd:soft,nt,nd Bhakta: blood tinged 04/04 Abd:soft,nt,nd Bhakta: blood tinged 04/05 Abd:soft,nt,nd Bhakta: clearing Assessment and Plan - Plan 77 y.o male admitted with abdominal pain; ARF and elevated PSA Maintain bhakta drainage for now CT scan later today Nephrology consulted. 03/28 77y.o. male with ARF and bilateral hydro with elevated PSA Will plan for cysto with b/l RPR's today in OR with possible stent insertion D/W pt's 03/29 77y.o. male with ARF and bilateral hydro with elevated PSA S/P cysto with b/l RPR's with b/l stent insertion Creatinine down to 3.9 today. Had dialysis recently. Follow u/o. Maintain bhakta catheter. Irrigate prn. 04/01 77 y.o male with ARF and bilateral hydro s/p b/l JJ stent insertion Creatinine continues to improve s/p b/l Jj stent insertion Maintain bhakta catheter and irrigate please 04/02 77 y.o male with ARF and bilateral hydro s/p b/l JJ stent insertion Creatinine continues to improve s/p b/l Jj stent insertion; down to 2.0 Maintain bhakta catheter and irrigate please 04/03 77 y.o male with ARF and bilateral hydro s/p b/l JJ stent insertion Creatinine continues to improve s/p b/l Jj stent insertion; down to 1.8 today. Maintain bhakta catheter and irrigate please 04/04 77 y.o male with ARF and bilateral hydro s/p JJ stent insertion with elevated PSA Maintain bhakta catheter as hematuria is slowly clearing and ARF is resolving Will need prostate needle bx as outpt. 04/05 77 y.o male with ARF and bilateral hydro s/p JJ stent insertion with elevated PSA Maintain bhakta catheter as hematuria is slowly clearing and ARF is resolving Void trial Sunday after pt has regained strength. Will need prostate needle bx as outpt.
--- NOTE | 2018-04-05 11:26 | P.PNIM ---
Subjective Interval history: No new complaints. Mentation continues to improve. Physical Exam Vital signs: Last Vital Signs Temp 98.2 F 04/05/18 07:18 Pulse 80 04/05/18 10:00 Resp 13 04/05/18 07:18 BP 151/72 H 04/05/18 07:18 Pulse Ox 96 04/05/18 11:10 Narrative: Gen: THINI heart reg lung course bs abd s/nt ext no edema restrained. bhakta. bloody urine --> but less dark from 04/01 Results Labs CBC & Chem 7: 04/05/18 06:05 04/05/18 06:05 Assessment and Plan Assessment (1) Acute kidney injury: Code(s): N17.9 - Acute kidney failure, unspecified Status: Acute (2) Bilateral hydronephrosis: Code(s): N13.30 - Unspecified hydronephrosis Status: Acute Plan DAINA with bilateral hydro and severe right abdomen and flank pain. - Concern for perinephric stranding and fluid collection adjacent to right kidney. - Pt was seen by urology and prostate is "rock hard." Concern for prostate ca and likely some obstruction. - PSA elevated at 159 - Pt underwent Cystoscopy, right retrograde pyelogram, right double-J stent insertion with left double-J stent insertion on 03/28/[address] Griffith - Renal function worsened on 03/27 with Creatinine over 6 and vascath and HD initiated 03/27. Cr on 03/28/18 increased again to 7.30 - Pt developed severe agitation/delirium at the end of HD. unclear etiology. ? HD related. doubt cva. likely metabolic. exclude infection - Pt had second HD on 03/28/18 and responded better and is clinically improving - Case reviewed with Nephrology, Dr. Gilbert, (04/02/18). Creatinine continues to improve and Nephrology will likely sign off case in the next few days. - Case reviewed with Urology, Dr. Loco Griffith (04/02/18). - Difficult to prognosticate given lack of prior w/u and data. - Bone scan --> negative - MRI brain --> no acute findings - appreciate input from Neurology - appreciate input from Palliative - Case d/w Urology, Dr. Loco Griffith, (04/05/18) - urine continues to clear - keep pt in hospital over the weekend with bhakta - likely remove bhakta with void trials on Sunday04/08/18 - anticipate discharge to SNF 04/08 or 04/09 aflutter/rvr - likely stress induced - converted with cardizem gtt. Pt transitioned to PO cardizem and went back into A.Fib RVR. 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
[2018-04-05] MEDS: dilTIAZem CD 120 MG Capsule PO SCH (12:04)
[2018-04-05] MEDS: Dextrose 5%/NaCl 0.45% Inj 1,000 ML IV.CONT SCH (12:04)
--- NOTE | 2018-04-05 12:43 | XR ---
EXAM DATE: 04/05/2018 12:40 PM EST AGE/SEX: 77 years / Male INDICATIONS: CHF CLINICAL DATA: This is the patient's initial encounter. Patient reports that signs and symptoms have been present for 4 - 6 days and indicates a pain score of 0/10. MEDICAL/SURGICAL HISTORY: Cardiovascular disease. Stroke. diverticulitis CABG. COMPARISON: C, CHEST 1V SINGLE AP, 03/28/2018. . FINDINGS: The previously noted prominent pulmonary edema has essentially resolved. There are some mild residual interstitial changes present on today's study with some pulmonary venous congestion. There is some m ild atelectasis in the right lung base. The left is grossly clear. No significant pleural effusions. The bony structures are stable. The heart size is stable. CONCLUSION: 1. The previously noted pulmonary edema has essentially resolved. There is some mild residual inters titial changes along with some pulmonary venous congestion on today's exam. 2. There is some mild atelectasis in the right lung base. Electronically signed by: George Torres MD Board Certified Radiologist 04/05/2018 12:42 PM EST
--- NOTE | 2018-04-05 14:26 | P.PNPAL ---
Reason for Visit Reason for visit: a. To assist with evaluation and management of symptoms including: Pain, altered mental status b. To assist medical decision maker(s) with: better understanding of current medical conditions; weighing benefits/burdens of medical treatment options; making medical treatment decisions. Subjective Subjective/Interval History: Follow-up medically necessary for symptom management and family support. Patient is sitting up in a chair. Awake, alert and partially oriented. Patient is able to follow simple commands. Bedside RN reporting intermittent confusion. Patient's daughter and spouse arrived during visit. Family reports improving oral intake and mentation though patient's daughter still feels that patient still has some confusion. Patient afebrile, vital signs stable. Chest x-ray today showing some mild residual interstitial changes along with some pulmonary venous congestion. Mild atelectasis in the right lung base. Laboratory workup today revealing sodium 138, potassium 3.5, BUN/creatinine 40/1.94, magnesium 1.5. Patient verbalized that in the event that he is incapacitated he would like his spouse Karrie Segura to serve as his designated healthcare surrogate and his daughter Aliya Medina is his alternate healthcare surrogate. Assisted with completing form for patient and he signed it. Discussion with patient's daughter who is concerned regarding patient's mentation. Encouraged family to follow-up with patient's neurologist and primary care physician after he is medically discharged from the hospital. Plan is for patient to go to rehabilitation at a prison facility after medical discharge. HCS completed, copy placed on chart and another copy scanned to HIM and family provided with 2 copies. Case discussed with Dr. Griffith, and bedside RN. . Family/Friend Interactions: See interval note. . Advance Directives Living Will: Completed, but not made available Health Care Surrogate: Copy in medical record Durable Power of Supervisor Stage Carpentry: Never completed Advance Directives Date on File: 04/05/18 Health Care Surrogate Name and Number: HCS: Imelda Karrie [phone]/ AlT: Aliya Medina Documented care wishes:: Spouse is unsure whether patient has ever completed a living will or not. . Objective Vital Signs: Vital Signs 04/04/18 14:00 04/04/18 15:00 04/04/18 16:00 Temperature 98.9 F Pulse Rate 86 94 H 89 Respiratory Rate 16 Blood Pressure 116/62 Pulse Oximetry 96 02/14/19 17:00 04/04/18 18:00 04/04/18 19:00 Temperature Pulse Rate 84 78 82 Respiratory Rate Blood Pressure Pulse Oximetry 04/04/18 20:00 04/04/18 21:00 04/04/18 22:00 Temperature 99.0 F Pulse Rate 88 90 89 Respiratory Rate 16 Blood Pressure 135/71 Pulse Oximetry 96 04/04/18 23:00 04/05/18 00:00 04/05/18 01:00 Temperature 98.2 F Pulse Rate 78 83 84 Respiratory Rate 16 Blood Pressure 134/55 L Pulse Oximetry 97 04/05/18 02:00 04/05/18 03:00 04/05/18 04:00 Temperature Pulse Rate 85 81 74 Respiratory Rate Blood Pressure Pulse Oximetry 04/05/18 05:00 04/05/18 05:18 04/05/18 05:52 Temperature 97.6 F Pulse Rate 82 76 86 Respiratory Rate 16 Blood Pressure 180/76 H Pulse Oximetry 99 04/05/18 07:00 04/05/18 07:18 04/05/18 08:00 Temperature 98.2 F Pulse Rate 79 81 70 Respiratory Rate 13 Blood Pressure 151/72 H Pulse Oximetry 97 04/05/18 09:00 04/05/18 10:00 04/05/18 11:00 Temperature Pulse Rate 70 80 82 Respiratory Rate Blood Pressure Pulse Oximetry 04/05/18 11:10 04/05/18 11:52 Temperature 97.7 F Pulse Rate 83 Respiratory Rate 18 Blood Pressure 153/50 H Pulse Oximetry 96 98 Intake & Output 04/04/18 04/05/18 04/05/18 18:59 06:59 18:59 Intake Total 1420 / 1420 480 / 480 1000 / 1000 Output Total 450 / 450 750 / 750 Balance 970 / 970 -270 / -270 1000 / 1000 Intake: IV 1000 / 1000 1000 / 1000 D5W/1/2 NS Inj 1,000 ML @ 42 1000 / 1000 1000 / 1000 mls/hr IV.CONT .[id number] [facility] Rx# :[id number] Oral 420 / 420 480 / 480 Output: Urine Amount (Catheter) 450 / 450 750 / 750 Indwelling Urethral Catheter 450 / 450 750 / 750 Other: Date of Last Bowel Movement 03/28/18 03/28/18 03/28/18 # Bowel Movements 0 Physical Exam: CONSTITUTIONAL/GENERAL: This is an elderly, thin patient, in no apparent distress. TUBES/LINES/DRAINS: PIV, coud Andrew catheter, bilateral upper extremities to soft restraints SKIN: Ecchymosis on upper extremities. No wounds seen anteriorly. Normothermic. HEAD: Atraumatic. Normocephalic. EYES: Pupils reactive to light. Fundi not examined. ENT: Hearing grossly normal. Moist oral mucosa NECK: Trachea midline. Supple, nontender. CARDIOVASCULAR: Irregular rate and rhythm without murmurs. Peripheral pulses symmetric. RESPIRATORY/CHEST: Symmetric, unlabored respirations. Clear to auscultation. GASTROINTESTINAL: Abdomen soft, non-tender, nondistended. No guarding. Bowel sounds present. GENITOURINARY: Without palpable bladder distension. Andrew catheter-hematuria resolving. MUSCULOSKELETAL: Extremities without edema. No mottling or clubbing. LYMPHATICS: Did not assess NEUROLOGICAL: Awake, alert and partially oriented. Following simple commands with all 4 extremities. PSYCHIATRIC: No obvious anxiety/depression. no apparent hallucinations or other psychotic thought process. . Diagnostic Tests Laboratory: Laboratory Results - last 72 hr 04/03/18 04/05/18 04/05/18 06:01 06:05 06:05 WBC 7.9 RBC 3.67 L Hgb 11.9 L Hct 35.0 L MCV 95.5 MCH 32.4 MCHC 33.9 RDW 12.3 Plt Count 202 D MPV 8.6 Prelim Diff (Auto) Slide review pending Neut % (Auto) 68.1 Lymph % (Auto) 13.4 Sargent % (Auto) 8.9 H Eos % (Auto) 8.7 H Baso % (Auto) 0.9 Neut # (Auto) 6.8 Lymph # (Auto) 1.3 Sargent # (Auto) 0.9 Eos # (Auto) 0.9 H Baso # (Auto) 0.1 WBC Differential . Diff Scan Auto diff confirmed Differential Comment . Platelet Estimate Normal Platelet Morphology Clumped H Sodium 144 138 Potassium 4.1 D 3.5 Chloride 110 H 106 Carbon Dioxide 25.2 24.1 Anion Gap 9 8 BUN 34 H 40 H Creatinine 1.87 H 1.94 H Estimated GFR 35 L 34 L Random Glucose 100 103 Calcium 8.8 8.1 L Phosphorus 3.1 Magnesium 1.5 Albumin 2.7 L Result Diagrams: 04/05/18 06:05 04/05/18 06:05 Microbiology: Microbiology 03/31/18 12:40 Urine Culture - Final Catheterized Urine No growth in 48 hours Imaging: Abdomen/Pelvis CT 03/27/18 00:00 CONCLUSION: 1. New moderate amount of ascitic fluid present. 2. Nonspecific bowel gas pattern which may represent an ileus or gastroenteritis. 3. New small bilateral pleural effusions with consolidation in the lung bases right greater than left. The heart size remains enlarged. 4. The kidneys are stable in appearance with bilateral hydronephrosis again noted. Catheter Placement 03/27/18 00:00 CONCLUSION: 1. Uncomplicated line placement as above. The catheter functions well and is ready for use. Head CT 04/01/18 00:00 CONCLUSION: Atrophy, otherwise negative for an acute process. dEy Almonte MD FACR . Bone Scan Nuclear Medicine 04/02/18 00:00 CONCLUSION: 1. No evidence of bony metastatic disease. Head MRI 04/02/18 00:00 CONCLUSION: 1. Cerebral atrophy. 2. Old right thalamic lacunar infarct. 3. No obvious metastatic disease. 4. Minimal nonspecific white matter changes. Abdomen Ultrasound 04/03/18 00:00 CONCLUSION: 1. Unremarkable examination with no ascites now identified. Chest X-Ray 04/05/18 00:00 CONCLUSION: 1. The previously noted pulmonary edema has essentially resolved. There is some mild residual interstitial changes along with some pulmonary venous congestion on today's exam. 2. There is some mild atelectasis in the right lung base. Procedures: 03/27/18-left IJ Vas-Cath placement by interventional radiology 03/27/18-hemodialysis started 03/30/18-last day patient had hemodialysis . Assessment and Plan - Disease Oriented Problem List (1) Delirium (2) Acute kidney injury (3) Bilateral hydronephrosis (4) Elevated PSA (5) Atrial flutter with rapid ventricular response - Symptom Scale (2) Altered mental status 0-10 Scale: Unable to quantify Pertinent Non-Medical Issues: Psychosocial: Patient is originally from [place]. He moved to [place] 35 years ago. Patient's highest level is college degree. 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 Patient has been to his current for 38 years. Patient served in the [employer] in [place] war. Patient has 1 adult daughter Aliya Medina who resides in [place]. Spiritual: Patient is an Nondenominational-family open to balling head tender visits Legal: Patient spouse unsure whether patient has ever completed advanced directives. Ethical issues impacting care: None identified at this time. . Important Contacts: Healthcare surrogate -spouse-Karrie Segura-[phone] home/[phone] Alternate healthcare surrogate -daughter-Aliya Medina-[phone] . Prognosis: Mr. Segura is a 77-year-old male with a medical history significant for coronary artery disease status post CABG x4 vessels, myocardial infarction x2, right thalamic CVA with persistent weakness to left upper and lower extremities , elevated NURSE MONITORING, duodenal ulcer, white coat hypertension, diverticulosis and diverticulitis. Patient presented to the emergency room on 03/25/2018 with complaints of worsening right upper and lower quadrant abdominal pain radiating to the right flank. Hospital course complicated with agitation, persistent altered mental status, acute kidney injury requiring short-term hemodialysis( now resolved), atrial flutter with RVR. Given multiple ongoing comorbidities this patient remains at high risk for further complications, deterioration and decline. Prognosis is guarded. . Code Status: Full Code Plan: PLAN: Legal decision maker: Patient is partially oriented with intermittent episodes of confusion. Recommending joint decision-making with his spouse Karrie Segura who is his healthcare surrogate. Goals: Remain aggressive. Patient showing some neurological improvement. He does have some understanding of his medical condition though he does not remember what happened when he had hemodialysis. Patient designated his spouse as his healthcare surrogate and his daughter Aliya as his alternate healthcare surrogate. Plan is for patient to be discharged to a prison facility for rehabilitation and follow-up with urology and possibly have a biopsy outpatient. CODE STATUS: Full code SYMPTOMS: * Pain: Patient is at risk for pain considering bedbound status, and surgical intervention. Hydrocodone/acetaminophen 5/325 2 tabs p.o. every 6 hours prn and morphine sulfate 2 mg IVP every 4 hours prn available for pain. Patient denying pain at time of visit. Continue to monitor for pain. * Altered mental status: History of CVA. Recent onset of agitation and altered mentation after hemodialysis. Head CT negative for any acute intracranial abnormality. Patient scheduled to go for an MRI brain. Patient's neuro status significantly improved. Alert and partially oriented. Continue with neuro checks. Palliative care will continue to follow the patient during hospital course as condition evolves, to assist patient/decision-maker with understanding of their medical conditions, weighing benefits/burdens of treatment options, for clarification of goals of treatment. Additionally will assist with any symptoms of palliative concern Attestation Attestation: To help prompt me to consider important information that might be impacting today's encounter and assessment, information from prior notes written by myself or my colleagues may have been "brought forward" into today's note. My signature on this note, however, is an attestation that I personally performed the exam, history, and/or decision-making noted today, and, unless otherwise indicated, the interactions with patient, family, and staff as well as the review of records all occurred today. I also attest that the listed assessment and stated plan reflect my best clinical judgment today based on the combination of historical information, prior notes, and today's exam/ interactions. When time spent is documented, it refers only to time spent today by the signer, or if indicated, combined time spent today by collaborating physician/nurse practitioner.
[2018-04-06] MEDS: Belladonna Alkaloid/Opium 60 MG Supp RECTAL SCH ×4 (00:33→18:39)
[2018-04-06] MEDS: dilTIAZem CD 120 MG Capsule PO SCH (10:33)
[2018-04-06] MEDS: Gabapentin 100 MG Capsule PO SCH ×3 (10:34→21:15)
[2018-04-06] MEDS: Sodium Chloride 0.9% 2 ML Flush BID IV.FLUSH SCH ×2 (10:34→21:15)
--- NOTE | 2018-04-06 11:44 | P.PNIM ---
Subjective Interval history: No new complaints. Pt tolerating PO intake. Pt/family report BM yesterday. Physical Exam Vital signs: Last Vital Signs Temp 97.3 F L 04/06/18 04:00 Pulse 69 04/06/18 06:00 Resp 18 04/06/18 04:00 BP 131/62 04/06/18 04:00 Pulse Ox 97 04/06/18 04:00 Narrative: Gen: THIN heart reg lungs: clear x b/l abd s/nt ext no edema bhakta. bloody urine --> but less dark from 04/01 Results Labs CBC & Chem 7: 04/05/18 06:05 04/05/18 06:05 Assessment and Plan Assessment (1) Acute kidney injury: Code(s): N17.9 - Acute kidney failure, unspecified Status: Acute (2) Bilateral hydronephrosis: Code(s): N13.30 - Unspecified hydronephrosis Status: Acute Plan DAINA with bilateral hydro and severe right abdomen and flank pain. - Concern for perinephric stranding and fluid collection adjacent to right kidney. - Pt was seen by urology and prostate is "rock hard." Concern for prostate ca and likely some obstruction. - PSA elevated at 159 - Pt underwent Cystoscopy, right retrograde pyelogram, right double-J stent insertion with left double-J stent insertion on 03/28/[address] Griffith - Renal function worsened on 03/27 with Creatinine over 6 and vascath and HD initiated 03/27. Cr on 03/28/18 increased again to 7.30 - Pt developed severe agitation/delirium at the end of HD. unclear etiology. ? HD related. doubt cva. likely metabolic. exclude infection - Pt had second HD on 03/28/18 and responded better and is clinically improving - Case reviewed with Nephrology, Dr. Gilbert, (04/02/18). Creatinine continues to improve and Nephrology will likely sign off case in the next few days. - Case reviewed with Urology, Dr. Loco Griffith (04/02/18). - Difficult to prognosticate given lack of prior w/u and data. - Bone scan --> negative - MRI brain --> no acute findings - appreciate input from Neurology - appreciate input from Palliative - Case d/w Urology, Dr. Loco Griffith, (04/05/18) - urine continues to clear - keep pt in hospital over the weekend with bhakta - likely remove bhakta with void trials on Sunday04/08/18 - anticipate discharge to SNF 04/08 or 04/0904/06/18 - Pt interviewed and examined. - No new clinical complaints. - bhakta catheter inplace draining bloody urine but lightening from earlier this week - repeat labs in AM 04/07 - continue current treatment plan as outlined above - heplock IV - will likely stop telemetry 04/07 aflutter/rvr - likely stress induced - converted with cardizem gtt. Pt transitioned to PO cardizem and went back into A.Fib RVR. 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
[2018-04-07] MEDS: Belladonna Alkaloid/Opium 60 MG Supp RECTAL SCH ×4 (00:39→17:30)
[2018-04-07] MEDS: Gabapentin 100 MG Capsule PO SCH ×3 (08:26→21:23)
[2018-04-07] MEDS: dilTIAZem CD 120 MG Capsule PO SCH (08:26)
[2018-04-07] MEDS: Sodium Chloride 0.9% 2 ML Flush BID IV.FLUSH SCH ×2 (08:27→21:25)
[2018-04-07 09:34] LABS: Baso # (Auto) 0.1 th/mm3 (0.0-0.2); Baso % (Auto) 0.6 % (0.0-2.0); Eos # (Auto) 0.4 th/mm3 (0.0-0.4); Eos % (Auto) 4.7 % (0.0-4.0); Hemoglobin 10.6 gm/dL (13.0-17.0); Lymph % (Auto) 12.8 % (9.0-44.0); Mean Corpuscular HGB Conc 34.2 % (32.0-36.0); Mean Corpuscular Hemoglobin 33.2 pg (27.0-34.0); Mean Platelet Volume 9.5 fL (7.0-11.0); Mono # (Auto) 0.7 th/mm3 (0.0-0.9); Mono % (Auto) 8.1 % (0.0-8.0); Neut % (Auto) 73.8 % (16.0-70.0); Red Blood Count 3.19 mil/mm3 (4.50-5.90); Red Cell Distribution Width 12.1 % (11.6-17.2)
[2018-04-07 09:42] LABS: Platelet Count 233 th/mm3 (150-450); White Blood Count 7.8 th/mm3 (4.0-11.0)
[2018-04-07 10:00] LABS: Calcium 8.1 mg/dL (8.5-10.1); Magnesium 1.6 mg/dL (1.5-2.5)
[2018-04-07 10:45] LABS: Platelet Morphology Clumped (Normal)
[2018-04-07 10:46] LABS: Platelet Estimate Normal (Normal)
--- NOTE | 2018-04-07 17:33 | P.PNIM ---
Subjective Interval history: No new complaints. Physical Exam Vital signs: Last Vital Signs Temp 99.5 F 04/07/18 16:29 Pulse 78 04/07/18 16:00 Resp 18 04/07/18 16:00 BP 147/75 H 04/07/18 16:00 Pulse Ox 100 04/07/18 16:00 Narrative: Gen: THIN heart reg lungs: clear x b/l abd s/nt ext no edema bhakta. bloody urine --> but less dark from 04/01 Results Labs CBC & Chem 7: 04/08/18 09:45 04/08/18 09:45 Assessment and Plan Assessment (1) Acute kidney injury: Code(s): N17.9 - Acute kidney failure, unspecified Status: Acute (2) Bilateral hydronephrosis: Code(s): N13.30 - Unspecified hydronephrosis Status: Acute Plan DAINA with bilateral hydro and severe right abdomen and flank pain. - Concern for perinephric stranding and fluid collection adjacent to right kidney. - Pt was seen by urology and prostate is "rock hard." Concern for prostate ca and likely some obstruction. - PSA elevated at 159 - Pt underwent Cystoscopy, right retrograde pyelogram, right double-J stent insertion with left double-J stent insertion on 03/28/[address] Griffith - Renal function worsened on 03/27 with Creatinine over 6 and vascath and HD initiated 03/27. Cr on 03/28/18 increased again to 7.30 - Pt developed severe agitation/delirium at the end of HD. unclear etiology. ? HD related. doubt cva. likely metabolic. exclude infection - Pt had second HD on 03/28/18 and responded better and is clinically improving - Case reviewed with Nephrology, Dr. Gilbert, (04/02/18). Creatinine continues to improve and Nephrology will likely sign off case in the next few days. - Case reviewed with Urology, Dr. Loco Griffith (04/02/18). - Difficult to prognosticate given lack of prior w/u and data. - Bone scan --> negative - MRI brain --> no acute findings - appreciate input from Neurology - appreciate input from Palliative - Case d/w Urology, Dr. Loco Griffith, (04/05/18) - urine continues to clear - keep pt in hospital over the weekend with bhakta - likely remove bhakta with void trials on Sunday04/08/18 - anticipate discharge to SNF 04/08 or 04/0904/06/18 - Pt interviewed and examined. - No new clinical complaints. - bhakta catheter inplace draining bloody urine but lightening from earlier this week - repeat labs in AM 04/07 - continue current treatment plan as outlined above - heplock IV - will likely stop telemetry 04/07 aflutter/rvr - likely stress induced - converted with cardizem gtt. Pt transitioned to PO cardizem and went back into A.Fib RVR. 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
--- NOTE | 2018-04-07 17:39 | P.PNIM ---
Subjective Interval history: No new complaints. Physical Exam Vital signs: Last Vital Signs Temp 99.5 F 04/07/18 16:29 Pulse 78 04/07/18 16:00 Resp 18 04/07/18 16:00 BP 147/75 H 04/07/18 16:00 Pulse Ox 100 04/07/18 16:00 Narrative: Gen: THIN heart reg lungs: clear x b/l abd s/nt ext no edema bhakta. bloody urine --> but less dark from 04/01 Results Labs CBC & Chem 7: 04/08/18 09:45 04/08/18 09:45 Assessment and Plan Assessment (1) Acute kidney injury: Code(s): N17.9 - Acute kidney failure, unspecified Status: Acute (2) Bilateral hydronephrosis: Code(s): N13.30 - Unspecified hydronephrosis Status: Acute Plan DAINA with bilateral hydro and severe right abdomen and flank pain. - Concern for perinephric stranding and fluid collection adjacent to right kidney. - Pt was seen by urology and prostate is "rock hard." Concern for prostate ca and likely some obstruction. - PSA elevated at 159 - Pt underwent Cystoscopy, right retrograde pyelogram, right double-J stent insertion with left double-J stent insertion on 03/28/[address] Griffith - Renal function worsened on 03/27 with Creatinine over 6 and vascath and HD initiated 03/27. Cr on 03/28/18 increased again to 7.30 - Pt developed severe agitation/delirium at the end of HD. unclear etiology. ? HD related. doubt cva. likely metabolic. exclude infection - Pt had second HD on 03/28/18 and responded better and is clinically improving - Case reviewed with Nephrology, Dr. Gilbert, (04/02/18). Creatinine continues to improve and Nephrology will likely sign off case in the next few days. - Case reviewed with Urology, Dr. Loco Griffith (04/02/18). - Difficult to prognosticate given lack of prior w/u and data. - Bone scan --> negative - MRI brain --> no acute findings - appreciate input from Neurology - appreciate input from Palliative - Case d/w Urology, Dr. Loco Griffith, (04/05/18) - urine continues to clear - keep pt in hospital over the weekend with bhakta - likely remove bhakta with void trials on Sunday04/08/18 - anticipate discharge to SNF 04/08 or 04/0904/07/18 - bloody urine, but NOT as dark - Pt tolerating PO intake. aflutter/rvr - likely stress induced - converted with cardizem gtt. Pt transitioned to PO cardizem and went back into A.Fib RVR. 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
[2018-04-08] MEDS: Belladonna Alkaloid/Opium 60 MG Supp RECTAL SCH ×4 (01:03→21:43)
--- NOTE | 2018-04-08 08:20 | P.PNURO ---
Subjective Patient symptoms today: Pt seen and examined. Awake and alert. Urine clear. Objective Vital Signs: Vital Signs 04/07/18 09:00 04/07/18 10:00 04/07/18 11:00 Temperature Pulse Rate 78 84 74 Respiratory Rate Blood Pressure Pulse Oximetry 04/07/18 12:00 04/07/18 13:00 04/07/18 14:00 Temperature 98.7 F Pulse Rate 78 80 67 Respiratory Rate 18 Blood Pressure 117/63 Pulse Oximetry 97 04/07/18 15:00 04/07/18 16:00 04/07/18 16:29 Temperature 100.0 F H 99.5 F Pulse Rate 69 78 Respiratory Rate 18 Blood Pressure 147/75 H Pulse Oximetry 100 04/07/18 17:00 04/07/18 18:00 04/07/18 19:00 Temperature Pulse Rate 83 83 84 Respiratory Rate Blood Pressure Pulse Oximetry 04/07/18 20:00 04/07/18 21:00 04/07/18 21:24 Temperature 97.0 F L Pulse Rate 84 74 Respiratory Rate 18 Blood Pressure 147/74 H Pulse Oximetry 96 98 04/07/18 22:00 04/07/18 23:00 04/08/18 00:00 Temperature 97.7 F Pulse Rate 68 68 64 Respiratory Rate 18 Blood Pressure 141/55 H Pulse Oximetry 96 04/08/18 01:00 04/08/18 02:00 04/08/18 03:00 Temperature Pulse Rate 66 76 70 Respiratory Rate Blood Pressure Pulse Oximetry 04/08/18 04:00 04/08/18 05:00 04/08/18 06:00 Temperature 97.2 F L Pulse Rate 7 L 78 76 Respiratory Rate 18 Blood Pressure 141/45 H Pulse Oximetry 96 Intake & Output 04/07/18 04/08/18 04/08/18 18:59 06:59 18:59 Intake Total 720 / 720 480 / 480 Output Total 1025 / 1025 1050 / 1050 Balance -305 / -305 -570 / -570 Weight 49.1 kg Intake: Oral 720 / 720 480 / 480 Output: Urine 1050 / 1050 Urine Amount (Catheter) 1025 / 1025 Indwelling Urethral Catheter 1025 / 1025 Other: Bladder Irrigation Fluid - Amount Instilled Indwelling Urethral Catheter 20 Bladder Irrigation Fluid - Amount Drained Indwelling Urethral Catheter 20 Date of Last Bowel Movement 04/05/18 04/07/18 Result Diagrams: 04/07/18 07:40 04/07/18 07:46 Medications and IVs: Active Medications Generic Name Dose Route Start Last Admin Trade Name Freq PRN Reason Stop Dose Admin Acetaminophen 650 mg 03/27/18 10:21 Tylenol PO UNSCH PRN SEE LABEL COMMENTS Hydrocodone Bitart/Acetaminophen 2 tab 03/25/18 23:54 03/27/18 09:00 [place] 5/325 PO 2 tab Q6H PRN Administration PAIN SCALE 1 TO 5 Aspirin 81 mg 03/27/18 09:00 04/07/18 08:26 Aspirin Chew PO 81 mg DAILY ENMANUEL Administration Belladonna Alkaloids/Opium 60 mg 04/03/18 18:00 04/08/18 06:06 B & O Supp RECTAL 60 mg Q6HR ENMANUEL Administration Belladonna Alkaloids/Opium 60 mg 03/28/18 14:32 B & O Supp RECTAL Q6HR PRN bladder spasms Carbidopa/Levodopa 1 tab 03/30/18 18:00 04/08/18 05:53 Sinemet 25/100 Mg PO 1 tab Q6HR ENMANUEL Administration Clonidine HCl 0.1 mg 03/27/18 10:21 Catapres PO UNSCH PRN SEE LABEL COMMENTS Clonidine HCl 0.2 mg 03/28/18 10:38 Catapres PO Q4HR PRN sbp > 170 Diltiazem HCl 120 mg 04/05/18 11:30 04/07/18 08:26 Cardizem Cd 24hr PO 120 mg DAILY ENMANUEL Administration Diphenhydramine HCl 25 mg 03/27/18 10:21 Benadryl PO UNSCH PRN SEE LABEL COMMENTS Gabapentin 100 mg 03/26/18 13:00 04/07/18 12:03 Neurontin PO 100 mg BID@08,13 ENMANUEL Administration Gabapentin 200 mg 03/26/18 21:00 04/07/18 21:23 Neurontin PO 200 mg HS ENMANUEL Administration Gelatin 1 foam 03/27/18 10:21 Gelfoam 12 Mm/7 Mm Topical TOPICAL PRN PRN help stop bleeding from site Gentamicin Sulfate 20 mg 03/27/18 10:21 03/30/18 10:55 Gentamicin Inj OTHER 20 mg WITH DIALYSIS PRN Administration Dwell Gentamycin Lock Haloperidol Lactate 2.5 mg 03/27/18 18:16 Haldol Inj IV.PUSH Q4HR PRN AGITATION Heparin Sodium (Porcine) 1,000 units 03/27/18 10:21 03/30/18 10:54 Heparin Inj OTHER 1,000 units WITH DIALYSIS PRN Administration Dwell Heparin to Fill Catheter Heparin Sodium (Porcine) 8,000 units 03/27/18 10:21 Heparin Inj OTHER WITH DIALYSIS PRN for machine prime Heparin Sodium (Porcine) 0 unit 03/27/18 12:17 Heparin Central Flush IV.FLUSH DAILY PRN SEE DOSE INSTRUCTIONS Albumin Human 100 mls @ 60 mls/hr 03/27/18 10:21 Flexbumin 25% Inj IV.SIG WITH DIALYSIS PRN hypotension / volume replace Sodium Chloride 1,000 mls @ 0 mls/hr 03/27/18 10:21 04/03/18 07:50 Ns Inj OTHER Infused .Q0M PRN Infusion for prime and rinse back As Directed Sodium Chloride 1,000 mls @ 200 mls/hr 03/27/18 10:21 Ns Inj OTHER .Q5H PRN for dialyzer flush PRN Sodium Chloride 1,000 mls @ 0 mls/hr 03/27/18 10:21 Ns Inj IV.CONT .Q0M PRN hypotension / volume replace As Directed Sodium Chloride 500 mls @ 30 mls/hr 03/28/18 14:00 Ns Inj IV.SIG .Q10H ENMANUEL Lorazepam 1 mg 03/27/18 18:18 04/02/18 18:32 Ativan Inj IV.PUSH 1 mg Q2H PRN Administration SEVERE AGITATION Mannitol 12.5 gm 03/27/18 10:21 Mannitol Inj IV.PUSH UNSCH PRN hypotension / volume replace Morphine Sulfate 2 mg 03/25/18 23:54 04/01/18 05:41 Morphine Inj IV.PUSH 2 mg Q4H PRN Administration PAIN SCALE 6 TO 10 Nitroglycerin 0.4 mg 03/27/18 10:21 Nitrostat Sl SL Q5M PRN CHEST PAIN Ondansetron HCl 4 mg 03/27/18 10:21 Zofran Inj IV.PUSH UNSCH PRN NAUSEA OR VOMITING Risperidone 0.25 mg 03/29/18 21:00 04/07/18 21:23 Risperdal PO 0.25 mg BID ENMANUEL Administration Sodium Chloride 5 ml 03/27/18 10:21 Ns Flush IV.FLUSH PRN PRN flush each lumen during HD Sodium Chloride 0 ml 03/27/18 12:17 Ns Flush IV.FLUSH PRN PRN SEE DOSE INSTRUCTIONS Sodium Chloride 2 ml 03/28/18 21:00 04/07/18 21:25 Ns Flush IV.FLUSH 2 ml BID ENMANUEL Administration Sodium Chloride 2 ml 03/28/18 13:44 04/02/18 10:03 Ns Flush IV.FLUSH 2 ml PRN PRN Administration FLUSH AFTER USING IV ACCESS Objective Remarks: Abd:soft,nt,nd Bladder not distended 03/28 Abd:soft,nt,nd Bladder not distended 03/29 Abd:soft,nt,nd Bladder not distended Bhakta blood tinged. 04/01 Abd:soft,nt,nd Bhakta: bloody 04/02 Abd:soft,nt,nd Bhakta: blood tinged 04/03 Abd:soft,nt,nd Bhakta: blood tinged 04/04 Abd:soft,nt,nd Bhakta: blood tinged 04/05 Abd:soft,nt,nd Bhakta: clearing 04/08 Abd:soft,nt,nd Bhakta: urine clear; removed at bedside Assessment and Plan - Plan 77 y.o male admitted with abdominal pain; ARF and elevated PSA Maintain bhakta drainage for now CT scan later today Nephrology consulted. 03/28 77y.o. male with ARF and bilateral hydro with elevated PSA Will plan for cysto with b/l RPR's today in OR with possible stent insertion D/W pt's 03/29 77y.o. male with ARF and bilateral hydro with elevated PSA S/P cysto with b/l RPR's with b/l stent insertion Creatinine down to 3.9 today. Had dialysis recently. Follow u/o. Maintain bhakta catheter. Irrigate prn. 04/01 77 y.o male with ARF and bilateral hydro s/p b/l JJ stent insertion Creatinine continues to improve s/p b/l Jj stent insertion Maintain bhakta catheter and irrigate please 04/02 77 y.o male with ARF and bilateral hydro s/p b/l JJ stent insertion Creatinine continues to improve s/p b/l Jj stent insertion; down to 2.0 Maintain bhakta catheter and irrigate please 04/03 77 y.o male with ARF and bilateral hydro s/p b/l JJ stent insertion Creatinine continues to improve s/p b/l Jj stent insertion; down to 1.8 today. Maintain bhakta catheter and irrigate please 04/04 77 y.o male with ARF and bilateral hydro s/p JJ stent insertion with elevated PSA Maintain bhakta catheter as hematuria is slowly clearing and ARF is resolving Will need prostate needle bx as outpt. 04/05 77 y.o male with ARF and bilateral hydro s/p JJ stent insertion with elevated PSA Maintain bhakta catheter as hematuria is slowly clearing and ARF is resolving Void trial Sunday after pt has regained strength. Will need prostate needle bx as outpt. 04/08 77 y.o male with ARF and bilateral hydro s/p JJ stent insertion with elevated PSA ARF resolved Void trial today Flomax started Will need prostate needle bx as outpt.
[2018-04-08] MEDS: Gabapentin 100 MG Capsule PO SCH ×3 (08:42→21:43)
[2018-04-08] MEDS: dilTIAZem CD 120 MG Capsule PO SCH (08:42)
[2018-04-08] MEDS: Sodium Chloride 0.9% 2 ML Flush BID IV.FLUSH SCH ×2 (08:43→21:43)
--- NOTE | 2018-04-08 09:32 | P.PNIM ---
Subjective Interval history: pt doing ok. Physical Exam Vital signs: Last Vital Signs Temp 97.2 F L 04/08/18 04:00 Pulse 76 04/08/18 06:00 Resp 18 04/08/18 04:00 BP 141/45 H 04/08/18 04:00 Pulse Ox 96 04/08/18 04:00 Narrative: Gen: THIN heart reg lungs: clear x b/l abd s/nt ext no edema bhakta.clear urine Results Labs CBC & Chem 7: 04/07/18 07:40 04/07/18 07:46 Assessment and Plan Assessment (1) Acute kidney injury: Code(s): N17.9 - Acute kidney failure, unspecified Status: Acute (2) Bilateral hydronephrosis: Code(s): N13.30 - Unspecified hydronephrosis Status: Acute Plan DAINA with bilateral hydro and severe right abdomen and flank pain. - Concern for perinephric stranding and fluid collection adjacent to right kidney. - Pt was seen by urology and prostate is "rock hard." Concern for prostate ca and likely some obstruction. - PSA elevated at 159 - Pt underwent Cystoscopy, right retrograde pyelogram, right double-J stent insertion with left double-J stent insertion on 03/28/[address] Griffith - Renal function worsened on 03/27 with Creatinine over 6 and vascath and HD initiated 03/27. Cr on 03/28/18 increased again to 7.30 - Pt developed severe agitation/delirium at the end of HD. unclear etiology. ? HD related. doubt cva. likely metabolic. exclude infection - Pt had second HD on 03/28/18 and responded better and is clinically improving - Case reviewed with Nephrology, Dr. Gilbert, (04/02/18). Creatinine continues to improve and Nephrology will likely sign off case in the next few days. - Case reviewed with Urology, Dr. Loco Griffith (04/02/18). - Difficult to prognosticate given lack of prior w/u and data. - Bone scan --> negative - MRI brain --> no acute findings - appreciate input from Neurology - appreciate input from Palliative - Case d/w Urology, Dr. Loco Griffith, (04/05/18) - urine continues to clear - keep pt in hospital over the weekend with bhakta - voiding trial today per Urology....then decide on dc to snf. - anticipate discharge to SNF 04/08 or 04/09 aflutter/rvr - likely stress induced - converted with cardizem gtt. Pt transitioned to PO cardizem and went back into A.Fib RVR. 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
[2018-04-08 10:27] LABS: Calcium 8.7 mg/dL (8.5-10.1); Carbon Dioxide 24.9 meq/L (21.0-32.0); Magnesium 1.8 mg/dL (1.5-2.5)
[2018-04-08 10:33] LABS: Baso # (Auto) 0.1 th/mm3 (0.0-0.2); Baso % (Auto) 0.8 % (0.0-2.0); Eos # (Auto) 0.3 th/mm3 (0.0-0.4); Eos % (Auto) 3.4 % (0.0-4.0); Hematocrit 35.3 % (39.0-51.0); Hemoglobin 11.8 gm/dL (13.0-17.0); Lymph # (Auto) 1.1 th/mm3 (1.0-4.8); Lymph % (Auto) 13.2 % (9.0-44.0); Mean Corpuscular HGB Conc 33.4 % (32.0-36.0); Mean Corpuscular Hemoglobin 32.2 pg (27.0-34.0); Mean Corpuscular Volume 96.3 fL (80.0-100.0); Mono # (Auto) 0.6 th/mm3 (0.0-0.9); Mono % (Auto) 7.2 % (0.0-8.0); Neut # (Auto) 6.2 th/mm3 (1.8-7.7); Neut % (Auto) 75.4 % (16.0-70.0); Red Blood Count 3.67 mil/mm3 (4.50-5.90); Red Cell Distribution Width 12.3 % (11.6-17.2); White Blood Count 8.2 th/mm3 (4.0-11.0)
[2018-04-08 10:34] LABS: Mean Platelet Volume 8.2 fL (7.0-11.0); Platelet Count 261 th/mm3 (150-450)
[2018-04-08] MEDS: Haloperidol Inj 5 MG/ML Ampul IV.PUSH PRN (11:00)
--- NOTE | 2018-04-08 14:05 | P.PNPAL ---
Reason for Visit Reason for visit: a. To assist with evaluation and management of symptoms including: Pain, altered mental status b. To assist medical decision maker(s) with: better understanding of current medical conditions; weighing benefits/burdens of medical treatment options; making medical treatment decisions. Subjective Subjective/Interval History: Follow-up medically necessary for symptom management and family support. Patient seen and examined in his room in the presence of his spouse and his daughter. Patient is awake, alert, oriented to self only. Patient is pleasantly confused to time and situation. Patient thinks he came into the hospital yesterday and thinks he is in the hospital because he had a stroke. During conversation with patient it appears that he has flight of thoughts and is having a difficult time finding words. He seems to remember things that happened a long time ago and but has a problem with short-term memory. He cannot recall what he had for breakfast or what happened yesterday. Patient denies pain. He has hydrocodone/acetaminophen 5/325 2 tabs p.o. every 6 hours prn and last dose was on 03/27/18 and morphine sulfate 2 mg IV push every 4 hours prn last dose was administered on 04/01/18. Patient has been on Risperdal 0.25 mg p.o. twice daily. Andrew catheter discontinued on 04/08/18 around 0830 hrs, patient has not voided yet but has had the urge to void. Patient's daughter concerned with patient's worsening altered mentation. She continues to explain that she has been noticing during telephone conversations over the past year that patient has been very forgetful but during this hospitalization he is worse than his baseline. Discussed events that have occurred during this hospitalization and how they may affect patient's mentation. Discussed importance of following up with neurologist and primary care physician after patient is medically discharged to continue with further neuro assessments and maybe rule out dementia. Discussed plan for discharging patient to a nursing home facility for rehabilitation. Family would like to continue with aggressive treatment at this time. Case discussed with case management. Patient has been accepted to both [facility] and [facility] when medically discharged. . Family/Friend Interactions: See interval note. . Advance Directives Living Will: Completed, but not made available Health Care Surrogate: Copy in medical record Durable Power of Electrical Automation Engineer: Never completed Advance Directives Date on File: 04/05/18 Health Care Surrogate Name and Number: HCS: Karrie Segura [phone]/ AlT: Aliya Medina Documented care wishes:: Spouse is unsure whether patient has ever completed a living will or not. . Objective Vital Signs: Vital Signs 04/07/18 14:00 04/07/18 15:00 04/07/18 16:00 Temperature 100.0 F H Pulse Rate 67 69 78 Respiratory Rate 18 Blood Pressure 147/75 H Pulse Oximetry 100 04/07/18 16:29 04/07/18 17:00 04/07/18 18:00 Temperature 99.5 F Pulse Rate 83 83 Respiratory Rate Blood Pressure Pulse Oximetry 04/07/18 19:00 04/07/18 20:00 04/07/18 21:00 Temperature 97.0 F L Pulse Rate 84 84 74 Respiratory Rate 18 Blood Pressure 147/74 H Pulse Oximetry 96 04/07/18 21:24 04/07/18 22:00 04/07/18 23:00 Temperature Pulse Rate 68 68 Respiratory Rate Blood Pressure Pulse Oximetry 98 04/08/18 00:00 04/08/18 01:00 04/08/18 02:00 Temperature 97.7 F Pulse Rate 64 66 76 Respiratory Rate 18 Blood Pressure 141/55 H Pulse Oximetry 96 04/08/18 03:00 04/08/18 04:00 04/08/18 05:00 Temperature 97.2 F L Pulse Rate 70 7 L 78 Respiratory Rate 18 Blood Pressure 141/45 H Pulse Oximetry 96 04/08/18 06:00 04/08/18 07:00 04/08/18 08:00 Temperature 98.3 F Pulse Rate 76 73 74 Respiratory Rate 18 Blood Pressure 150/83 H Pulse Oximetry 96 04/08/18 09:00 04/08/18 10:00 04/08/18 11:00 Temperature Pulse Rate 84 88 77 Respiratory Rate Blood Pressure Pulse Oximetry 04/08/18 12:00 Temperature 99.1 F Pulse Rate 81 Respiratory Rate 18 Blood Pressure 125/66 Pulse Oximetry 99 Intake & Output 04/07/18 04/08/18 04/08/18 18:59 06:59 18:59 Intake Total 720 / 720 480 / 480 Output Total 1025 / 1025 1050 / 1050 Balance -305 / -305 -570 / -570 Weight 49.1 kg Intake: Oral 720 / 720 480 / 480 Output: Urine 1050 / 1050 Urine Amount (Catheter) 1025 / 1025 Indwelling Urethral Catheter 1025 / 1025 Other: Bladder Irrigation Fluid - Amount Instilled Indwelling Urethral Catheter 20 Bladder Irrigation Fluid - Amount Drained Indwelling Urethral Catheter 20 Date of Last Bowel Movement 04/05/18 04/07/18 04/07/18 Physical Exam: CONSTITUTIONAL/GENERAL: This is an elderly, thin patient, in no apparent distress. TUBES/LINES/DRAINS: PIV, bilateral upper extremities to soft restraints SKIN: Ecchymosis on upper extremities. No wounds seen anteriorly. Normothermic. HEAD: Atraumatic. Normocephalic. EYES: Pupils reactive to light. Fundi not examined. ENT: Hearing grossly normal. Moist oral mucosa NECK: Trachea midline. Supple, nontender. CARDIOVASCULAR: Irregular rate and rhythm without murmurs. Peripheral pulses symmetric. RESPIRATORY/CHEST: Symmetric, unlabored respirations. Clear to auscultation. On room air GASTROINTESTINAL: Abdomen soft, non-tender, nondistended. No guarding. Bowel sounds present. GENITOURINARY: Without palpable bladder distension. MUSCULOSKELETAL: Extremities without edema. No mottling or clubbing. LYMPHATICS: Did not assess NEUROLOGICAL: Awake, alert and partially oriented. Following simple commands with all 4 extremities. PSYCHIATRIC: No obvious anxiety/depression. no apparent hallucinations or other psychotic thought process. . Diagnostic Tests Laboratory: Laboratory Results - last 72 hr 04/07/18 04/07/18 04/08/18 07:40 07:46 09:45 WBC 7.8 8.2 RBC 3.19 L 3.67 L Hgb 10.6 L 11.8 L Hct 31.0 L 35.3 L MCV 97.0 96.3 MCH 33.2 32.2 MCHC 34.2 33.4 RDW 12.1 12.3 Plt Count 233 261 MPV 9.5 8.2 Prelim Diff (Auto) Slide review pending Neut % (Auto) 73.8 H 75.4 H Lymph % (Auto) 12.8 13.2 Foard % (Auto) 8.1 H 7.2 Eos % (Auto) 4.7 H 3.4 Baso % (Auto) 0.6 0.8 Neut # (Auto) 6.0 6.2 Lymph # (Auto) 1.0 1.1 Foard # (Auto) 0.7 0.6 Eos # (Auto) 0.4 0.3 Baso # (Auto) 0.1 0.1 WBC Differential . . Diff Scan Auto diff confirmed Differential Comment . Auto diff final Platelet Estimate Normal Platelet Morphology Clumped H Sodium 137 Potassium 4.0 Chloride 106 Carbon Dioxide 23.0 Anion Gap 8 BUN 38 H Creatinine 2.14 H Estimated GFR 30 L Random Glucose 101 Calcium 8.1 L Magnesium 1.6 04/08/18 09:45 WBC RBC Hgb Hct MCV MCH MCHC RDW Plt Count MPV Prelim Diff (Auto) Neut % (Auto) Lymph % (Auto) Foard % (Auto) Eos % (Auto) Baso % (Auto) Neut # (Auto) Lymph # (Auto) Foard # (Auto) Eos # (Auto) Baso # (Auto) WBC Differential Diff Scan Differential Comment Platelet Estimate Platelet Morphology Sodium 137 Potassium 4.0 Chloride 104 Carbon Dioxide 24.9 Anion Gap 8 BUN 37 H Creatinine 2.11 H Estimated GFR 31 L Random Glucose 104 Calcium 8.7 Magnesium 1.8 Result Diagrams: 04/08/18 09:45 04/08/18 09:45 Imaging: Abdomen/Pelvis CT 03/27/18 00:00 CONCLUSION: 1. New moderate amount of ascitic fluid present. 2. Nonspecific bowel gas pattern which may represent an ileus or gastroenteritis. 3. New small bilateral pleural effusions with consolidation in the lung bases right greater than left. The heart size remains enlarged. 4. The kidneys are stable in appearance with bilateral hydronephrosis again noted. Catheter Placement 03/27/18 00:00 CONCLUSION: 1. Uncomplicated line placement as above. The catheter functions well and is ready for use. Head CT 04/01/18 00:00 CONCLUSION: Atrophy, otherwise negative for an acute process. Edy Almonte MD FACR . Bone Scan Nuclear Medicine 04/02/18 00:00 CONCLUSION: 1. No evidence of bony metastatic disease. Head MRI 04/02/18 00:00 CONCLUSION: 1. Cerebral atrophy. 2. Old right thalamic lacunar infarct. 3. No obvious metastatic disease. 4. Minimal nonspecific white matter changes. Abdomen Ultrasound 04/03/18 00:00 CONCLUSION: 1. Unremarkable examination with no ascites now identified. Chest X-Ray 04/05/18 00:00 CONCLUSION: 1. The previously noted pulmonary edema has essentially resolved. There is some mild residual interstitial changes along with some pulmonary venous congestion on today's exam. 2. There is some mild atelectasis in the right lung base. Procedures: 03/27/18-left IJ Vas-Cath placement by interventional radiology 03/27/18-hemodialysis started 03/30/18-last day patient had hemodialysis . Assessment and Plan - Disease Oriented Problem List (1) Delirium (2) Acute kidney injury (3) Bilateral hydronephrosis (4) Elevated PSA (5) Atrial flutter with rapid ventricular response - Symptom Scale (1) Pain 0-10 Scale: 0 (2) Altered mental status 0-10 Scale: Unable to quantify Pertinent Non-Medical Issues: Psychosocial: Patient is originally from [place]. He moved to [place] 35 years ago. Patient's highest level is college degree. 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 Patient has been to his current for 38 years. Patient served in the [employer] in [place] war. Patient has 1 adult daughter Aliya Medina who resides in [place]. Spiritual: Patient is an Latter-Day-family open to director visits Legal: Patient spouse unsure whether patient has ever completed advanced directives. Ethical issues impacting care: None identified at this time. . Important Contacts: Healthcare surrogate -spouse-Karrie Segura-[phone] [place]/[phone] Alternate healthcare surrogate -daughter-Aliya Medina-[phone] . Prognosis: Mr. 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 Patient presented to the emergency room on 03/25/2018 with complaints of worsening right upper and lower quadrant abdominal pain radiating to the right flank. Hospital course complicated with agitation, persistent altered mental status, acute kidney injury requiring short-term hemodialysis( now resolved), atrial flutter with RVR. Given multiple ongoing comorbidities this patient remains at high risk for further complications, deterioration and decline. Prognosis is guarded. . Code Status: Full Code Plan: PLAN: Legal decision maker: Patient is partially oriented with intermittent episodes of confusion. Recommending joint decision-making with his spouse Karrie Segura who is his healthcare surrogate. Goals: Remain aggressive. Patient's daughter concerned with patient's worsening altered mentation. She continues to explain that she has been noticing during telephone conversations over the past year that patient has been very forgetful but during this hospitalization he is worse than his baseline. Discussed events that have occurred during this hospitalization and how they may affect patient's mentation. Discussed importance of following up with neurologist and primary care physician after patient is medically discharged to continue with further neuro assessments and maybe rule out dementia. Discussed plan for discharging patient to a nursing home facility for rehabilitation. Family would like to continue with aggressive treatment at this time. CODE STATUS: Full code SYMPTOMS: * Pain: Patient is at risk for pain considering bedbound status, and surgical intervention. He has hydrocodone/acetaminophen 5/325 2 tabs p.o. every 6 hours prn and last dose was on 03/27/18 and morphine sulfate 2 mg IV push every 4 hours prn last dose was administered on 04/01/18. Patient denying pain at time of visit. Continue to monitor for pain. * Altered mental status: History of CVA. Recent onset of agitation and altered mentation after hemodialysis. Head CT negative for any acute intracranial abnormality. Patient scheduled to go for an MRI brain. oriented to self only. Patient is pleasantly confused to time and situation. Patient thinks he came into the hospital yesterday and thinks he is in the hospital because he had a stroke. During conversation with patient, it appears that he has flight of thoughts and is having a difficult time finding words. Continue with neuro checks. Palliative care will continue to follow the patient during hospital course as condition evolves, to assist patient/decision-maker with understanding of their medical conditions, weighing benefits/burdens of treatment options, for clarification of goals of treatment. Additionally will assist with any symptoms of palliative concern Attestation Attestation: To help prompt me to consider important information that might be impacting today's encounter and assessment, information from prior notes written by myself or my colleagues may have been "brought forward" into today's note. My signature on this note, however, is an attestation that I personally performed the exam, history, and/or decision-making noted today, and, unless otherwise indicated, the interactions with patient, family, and staff as well as the review of records all occurred today. I also attest that the listed assessment and stated plan reflect my best clinical judgment today based on the combination of historical information, prior notes, and today's exam/ interactions. When time spent is documented, it refers only to time spent today by the signer, or if indicated, combined time spent today by collaborating physician/nurse practitioner.
[2018-04-08 19:37] LABS: Amorphous Sediment,Urine Moderate /hpf; Bilirubin,Urine Negative (Negative); Clarity,Urine Cloudy (Clear); Color,Urine Red (Yellw/Straw); Glucose,Urine (UA) Negative (Negative); Leukocyte Esterase,Urine Moderate (Negative); Mucus,Urine Few /lpf (Occasional); Nitrite,Urine Negative (Negative); Squamous Epithelial Cell,Urine 1 /hpf (0-5)
[2018-04-09] MEDS: Belladonna Alkaloid/Opium 60 MG Supp RECTAL SCH ×4 (02:05→18:43)
[2018-04-09] MEDS: dilTIAZem CD 120 MG Capsule PO SCH (08:51)
[2018-04-09] MEDS: Gabapentin 100 MG Capsule PO SCH ×2 (08:52→20:29)
[2018-04-09] MEDS: Haloperidol Inj 5 MG/ML Ampul IV.PUSH PRN ×4 (08:52→23:57)
[2018-04-09] MEDS: Sodium Chloride 0.9% 2 ML Flush BID IV.FLUSH SCH ×2 (08:53→20:29)
--- NOTE | 2018-04-09 09:14 | P.PNIM ---
Subjective Interval history: and daughter witnessed abrupt behavioral changes yesterday. Pt was aggressive and tried to get up and leave. They are struggling to believe it is exposed dementia/psychosis unmasked by his medical illness. They request another mri. Physical Exam Vital signs: Last Vital Signs Temp 98.6 F 04/09/18 04:00 Pulse 65 04/09/18 05:12 Resp 22 04/09/18 04:00 BP 149/62 H 04/09/18 04:00 Pulse Ox 98 04/09/18 04:00 Narrative: Gen: THIN heart reg lungs: clear x b/l abd s/nt ext no edema bhakta. Results Labs CBC & Chem 7: 04/08/18 09:45 04/08/18 09:45 Assessment and Plan Assessment (1) Acute kidney injury: Code(s): N17.9 - Acute kidney failure, unspecified Status: Acute (2) Bilateral hydronephrosis: Code(s): N13.30 - Unspecified hydronephrosis Status: Acute Plan DAINA with bilateral hydro and severe right abdomen and flank pain. - Concern for perinephric stranding and fluid collection adjacent to right kidney. - Pt was seen by urology and prostate is "rock hard." Concern for prostate ca and likely some obstruction. - PSA elevated at 159 - Pt underwent Cystoscopy, right retrograde pyelogram, right double-J stent insertion with left double-J stent insertion on 03/28/[address] Griffith - Renal function worsened on 03/27 with Creatinine over 6 and vascath and HD initiated 03/27. Cr on 03/28/18 increased again to 7.30 - Pt developed severe agitation/delirium at the end of HD. unclear etiology. ? HD related. doubt cva. likely metabolic. exclude infection - Pt had second HD on 03/28/18 and responded better and is clinically improving - Case reviewed with Nephrology, Dr. Gilbert, (04/02/18). Creatinine continues to improve and Nephrology will likely sign off case in the next few days. - Case reviewed with Urology, Dr. Loco Griffith (04/02/18). - Difficult to prognosticate given lack of prior w/u and data. - Bone scan --> negative - MRI brain --> no acute findings - appreciate input from Neurology - appreciate input from Palliative pt failed voiding trial 04/08 and bhakta replaced by Dr Griffith. plan to leave in and f/u office 10days. as of now he would refuse any surgical or medical rx of prostate ca per his . will discuss options with urology aflutter/rvr - likely stress induced - converted with cardizem gtt. Pt transitioned to PO cardizem and went back into A.Fib RVR. - Pt placed by on IV cardizem which has again be converted to PO cardizem - PO Cardizem XR 120mg daily - observe Pulmonary edema related to daina - CXR (03/28/18) --> fluid overload - Improving after HD - await repeat CXR (04/05) delirium /psychosis pt had ct brain and mri brain showing old cva and atrophy. It is felt pt has underlying cognitive deficits decompensated by acute metabolic encephalopathy and acute hospitalization. (pt memory for remote events intact..more recent events he is unable to remember.) pt improved and now worsened/restrained overnight. family requested reevaluation by neurology and repeat mri. will adjust antipsychotic meds doubt uti. await cx lower gabapentin dosing If above negative then pt family says they will accept the diagnosis Hx right thalamic CVA and left side weakness CAD s/p cabg x 4 Hx duodenal ulcer and diverticulosis Progress Note: Quality VTE Deep Vein Thrombosis/Pulmonary Embolism Present on Admission: No
--- NOTE | 2018-04-09 13:08 | MR ---
EXAM DATE: 04/09/2018 12:49 PM EST AGE/SEX: 77 years / Male INDICATIONS: Altered mental status. CLINICAL DATA: This is the patient's subsequent encounter. Patient reports that signs and symptoms h ave been present for 2 weeks and indicates a pain score of 0/10. MEDICAL/SURGICAL HISTORY: Carcinoma, prostatic. Acute kidney injury CABG. Hernia [place] [facility] [place]. . TECHNIQUE: Multiplanar, multisequence examination of the brain was performed without contrast. FINDINGS: Cerebrum: The ventricles are normal for age. No evidence of midline shift, mass lesion, hemorrhage or acute infarction. No extraaxial fluid collections are seen. The pituitary gland and suprasellar cistern are normal in configuration. Old, small right perithalamic lacunar infarct. White Matter: Mild, chronic FLAIR signal abnormality of the bilateral periventricular white matter a gain noted, not significantly changed. Posterior Fossa: The cerebellum and brainstem are intact. The 4th ventricle is midline. The cerebel lopontine angle is unremarkable. The cerebellar tonsils are normal in position. Diffusion Imaging: No focal areas of restricted diffusion are seen. No evidence of acute infarction . Extracranial: The visualized portions of the orbits and paranasal sinuses are unremarkable. CONCLUSION: 1. No acute intracranial abnormality. 2. Old right thalamic/perithalamic lacunar infarct. 3. Atrophy and chronic white matter changes. Electronically signed by: Amadou Reilly MD Board Certified Radiologist 04/09/2018 1:06 PM EST
--- NOTE | 2018-04-09 16:17 | P.PNNEU ---
Subjective Subjective Comments: Patient somewhat agitated has been in restraints at times. Came in with mild memory loss found to have renal failure which has been improving some fluctuation mental status and agitation. Has received antipsychotics Presently patient is calm denies any headache any new weakness vision loss language disturbance. Recognize family members is appropriate. Active Medications: Active Medications Acetaminophen (Tylenol) 650 mg PO UNSCH PRN PRN Reason: SEE LABEL COMMENTS Aspirin (Aspirin Chew) 81 mg PO DAILY [facility] Last Admin: 04/09/18 08:51 Dose: 81 mg Belladonna Alkaloids/Opium (B & O Supp) 60 mg RECTAL Q6HR [facility] Last Admin: 04/09/18 11:40 Dose: 60 mg Belladonna Alkaloids/Opium (B & O Supp) 60 mg RECTAL Q6HR PRN PRN Reason: bladder spasms Carbidopa/Levodopa (Sinemet 25/100 Mg) 1 tab PO Q6HR [facility] Last Admin: 04/09/18 11:40 Dose: 1 tab Clonidine HCl (Catapres) 0.1 mg PO UNSCH PRN PRN Reason: SEE LABEL COMMENTS Clonidine HCl (Catapres) 0.2 mg PO Q4HR PRN PRN Reason: sbp > 170 Diltiazem HCl (Cardizem Cd 24hr) 120 mg PO DAILY [facility] Last Admin: 04/09/18 08:51 Dose: 120 mg Diphenhydramine HCl (Benadryl) 25 mg PO UNSCH PRN PRN Reason: SEE LABEL COMMENTS Gabapentin (Neurontin) 100 mg PO BID [facility] Gelatin (Gelfoam 12 Mm/7 Mm Topical) 1 foam TOPICAL PRN PRN PRN Reason: help stop bleeding from site Gentamicin Sulfate (Gentamicin Inj) 20 mg OTHER WITH DIALYSIS PRN PRN Reason: Dwell Gentamycin Lock Last Admin: 03/30/18 10:55 Dose: 20 mg Haloperidol Lactate (Haldol Inj) 2.5 mg IV.PUSH Q4HR PRN PRN Reason: AGITATION Last Admin: 04/09/18 14:15 Dose: 2.5 mg Heparin Sodium (Porcine) (Heparin Inj) 1,000 units OTHER WITH DIALYSIS PRN PRN Reason: Dwell Heparin to Fill Catheter Last Admin: 03/30/18 10:54 Dose: 1,000 units Heparin Sodium (Porcine) (Heparin Inj) 8,000 units OTHER WITH DIALYSIS PRN PRN Reason: for machine prime Heparin Sodium (Porcine) (Heparin Central Flush) 0 unit IV.FLUSH DAILY PRN PRN Reason: SEE DOSE INSTRUCTIONS Sodium Chloride (Ns Inj) 1,000 mls @ 0 mls/hr OTHER .Q0M PRN PRN Reason: for prime and rinse back Last Infusion: 04/03/18 07:50 Dose: Infused Sodium Chloride (Ns Inj) 1,000 mls @ 200 mls/hr OTHER .Q5H PRN PRN Reason: for dialyzer flush PRN Sodium Chloride (Ns Inj) 1,000 mls @ 0 mls/hr IV.CONT .Q0M PRN PRN Reason: hypotension / volume replace Sodium Chloride (Ns Inj) 500 mls @ 30 mls/hr IV.SIG .Q10H [place] Lorazepam (Ativan Inj) 1 mg IV.PUSH Q2H PRN PRN Reason: SEVERE AGITATION Last Admin: 04/08/18 22:37 Dose: 1 mg Mannitol (Mannitol Inj) 12.5 gm IV.PUSH UNSCH PRN PRN Reason: hypotension / volume replace Nitroglycerin (Nitrostat Sl) 0.4 mg SL Q5M PRN PRN Reason: CHEST PAIN Ondansetron HCl (Zofran Inj) 4 mg IV.PUSH UNSCH PRN PRN Reason: NAUSEA OR VOMITING Quetiapine Fumarate (Seroquel) 25 mg PO HS [facility] Sodium Chloride (Ns Flush) 5 ml IV.FLUSH PRN PRN PRN Reason: flush each lumen during HD Sodium Chloride (Ns Flush) 0 ml IV.FLUSH PRN PRN PRN Reason: SEE DOSE INSTRUCTIONS Sodium Chloride (Ns Flush) 2 ml IV.FLUSH BID [facility] Last Admin: 04/09/18 08:53 Dose: 2 ml Sodium Chloride (Ns Flush) 2 ml IV.FLUSH PRN PRN PRN Reason: FLUSH AFTER USING IV ACCESS Last Admin: 04/02/18 10:03 Dose: 2 ml Tamsulosin HCl (Flomax) 0.4 mg PO DAILY [facility] Last Admin: 04/09/18 08:52 Dose: 0.4 mg Allergies/Adverse Reactions: Allergies Allergy/AdvReac Type Severity Reaction Status Date / Time banana Allergy Severe Swelling Verified 03/25/18 19:27 walnut Allergy Severe HIVES Verified 03/25/18 19:27 tizanidine Allergy Intermediate BAD Verified 03/25/18 19:27 REACTION lisinopril Allergy Unknown Dizziness Verified 03/25/18 19:27 losartan Allergy Unknown Dizziness Verified 03/25/18 19:27 simvastatin Allergy Unknown Dizziness Verified 03/25/18 19:27 codeine AdvReac Severe KNOCKS HIM Verified 03/25/18 19:27 OUT RED YEAST RICE Allergy Unknown Itching Uncoded 03/25/18 19:27 Review of Systems All other systems reviewed negative except as stated in HPI Physical Exam Vital signs: Vital Signs 04/08/18 16:30 04/08/18 17:00 04/08/18 18:00 Temperature Pulse Rate 73 80 Respiratory Rate Blood Pressure Pulse Oximetry 99 04/08/18 19:00 04/08/18 19:52 04/08/18 19:55 Temperature 98 F Pulse Rate 82 80 Respiratory Rate 20 Blood Pressure 150/69 H Pulse Oximetry 98 98 04/08/18 20:00 04/08/18 21:00 04/08/18 22:00 Temperature Pulse Rate 84 78 78 Respiratory Rate Blood Pressure Pulse Oximetry 04/08/18 23:00 04/09/18 00:00 04/09/18 01:42 Temperature Pulse Rate 70 69 72 Respiratory Rate 16 Blood Pressure Pulse Oximetry 04/09/18 02:00 04/09/18 03:00 04/09/18 04:00 Temperature 98.6 F Pulse Rate 76 70 70 Respiratory Rate 22 Blood Pressure 149/62 H Pulse Oximetry 98 04/09/18 05:00 04/09/18 05:12 04/09/18 08:00 Temperature 98.9 F Pulse Rate 64 65 78 Respiratory Rate 18 Blood Pressure 158/64 H Pulse Oximetry 96 04/09/18 10:24 04/09/18 12:00 Temperature 99.3 F Pulse Rate 75 Respiratory Rate 18 Blood Pressure 136/68 Pulse Oximetry 96 96 Intake & Output 04/08/18 04/09/18 04/09/18 18:59 06:59 18:59 Intake Total 720 / 720 240 / 240 Output Total 600 / 600 1350 / 1350 Balance 120 / 120 -1110 / -1110 Weight 49 kg Intake: Oral 720 / 720 240 / 240 Output: Urine 25 / 25 Urine Amount (Catheter) 575 / 575 1350 / 1350 Indwelling Urethral Catheter 575 / 575 1350 / 1350 Other: Date of Last Bowel Movement 04/07/18 04/07/18 04/07/18 Narrative: GENERAL: in NAD, SKIN: Warm and dry. HEAD: Atraumatic. Normocephalic. EYES: Pupils equal and round. ENT: No nasal bleeding or discharge. NECK: Trachea midline. No JVD. CARDIOVASCULAR: Regular rate and rhythm. RESPIRATORY: No accessory muscle use. GASTROINTESTINAL: Abdomen soft, non-tender, nondistended. MUSCULOSKELETAL: Extremities without clubbing, cyanosis, or edema. NEUROLOGICAL: Awake alert, calm pleasant, oriented 2. Recognizes his daughter spouse, humerus at times no involuntary movements was able name the current president. extraocular once intact visual manuel grossly full mild left hemiparesis left hemisensory left-sided 4+ out of 5 - Constitutional no acute distress - Routine HEENT Exam Head: Present: normocephalic - Urinary Catheter Management Indwelling Urethral Catheter Cath placed during this visit: yes, but has since been removed by the nurse Reason for continuing: Chronic Urinary Retention Insertion date: 04/08/18 Insertion time: 15:30 Removal date: 04/08/18 Removal time: 08:30 Objective Laboratory Results - last 24 hr 04/08/18 18:10 Urine Color Red Urine Clarity Cloudy H Urine pH 6.0 Ur Specific [place] 1.010 Urine Protein 100 H Urine Glucose (UA) Negative Urine Ketones Negative Urine Occult Blood Large H Urine Nitrate Negative Urine Bilirubin Negative Urine Urobilinogen Less than 2 Ur Leukocyte Esterase Moderate H Urine RBC Urine WBC 120 H Ur Squamous Epith Cells 1 Amorphous Sediment Moderate H Urine Mucus Few H Micro UA Comment Cath-culture ind Ur Microscopic Review Not Reportable Urine Culture Comments Cath-cult indicated Microbiology 04/08/18 18:10 Urine Culture - Preliminary Catheterized Urine No growth in 24 hours Review/Management - Diagnosis (1) Metabolic encephalopathy Code(s): G93.41 - Metabolic encephalopathy Status: Acute Current Visit: Yes (2) 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 Code(s): I69.30 - Unspecified sequelae of cerebral infarction Status: Acute Current Visit: Yes (3) Acute kidney injury Code(s): N17.9 - Acute kidney failure, unspecified Status: Acute Current Visit: Yes (4) Bilateral hydronephrosis Code(s): N13.30 - Unspecified hydronephrosis Status: Acute Current Visit: Yes (5) Delirium Code(s): R41.0 - Disorientation, unspecified Status: Acute Current Visit: Yes (6) Atrial flutter with rapid ventricular response Code(s): I48.92 - Unspecified atrial flutter Status: Acute Current Visit: Yes - Review/Management Plan: Metabolic/uremic encephalopathy Suspect his mental status should improve his kidney function improves. Mild left hemiparesis which could be explained by his old deficit. However current infarct cannot be excluded History of previous right thalamic stroke MRI brain scan negative for new stroke Repeat MRI brain 04/09/18 negative for any new lesion Probable emerging cognitive impairment such as Alzheimer's with a history of previous stroke worsened by metabolic factors Recommendation After seeing antipsychotic is significantly improved. Daughter and spouse also acknowledge this. We discussed that he may have an emerging dementia worsened by metabolic abnormalities and UTI. Anticoagulation for history of a flutter/A. fib as medically feasible Is on Seroquel May require inpatient rehab versus home with PT No driving Discharge planning to rehab Neurology sign off. He will follow-up with Dr. Ramirez in the office
[2018-04-09] MEDS ORDERED: QUEtiapine 25 MG Tablet PO SCH (21:00)
[2018-04-10] MEDS: Belladonna Alkaloid/Opium 60 MG Supp RECTAL SCH ×4 (00:07→20:01)
[2018-04-10 06:57] LABS: Calcium 8.5 mg/dL (8.5-10.1); Carbon Dioxide 22.4 meq/L (21.0-32.0); Potassium 4.2 meq/L (3.5-5.1)
[2018-04-10] MEDS: Haloperidol Inj 5 MG/ML Ampul IV.PUSH PRN ×3 (07:02→22:15)
[2018-04-10] MEDS: Gabapentin 100 MG Capsule PO SCH ×2 (08:57→20:02)
[2018-04-10] MEDS: dilTIAZem CD 120 MG Capsule PO SCH (08:57)
--- NOTE | 2018-04-10 11:43 | P.PNIM ---
Subjective Interval history: pt calmed with haldol yesterday and for brief time on seroquel. but then restrained for agitation and kicking. Physical Exam Vital signs: Last Vital Signs Temp 97.9 F 04/10/18 11:00 Pulse 86 04/10/18 11:00 Resp 16 04/10/18 11:00 BP 125/56 L 04/10/18 11:00 Pulse Ox 98 04/10/18 11:00 Narrative: Gen: THIN heart reg lungs: clear x b/l abd s/nt ext no edema bhakta. 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 - Concern for perinephric stranding and fluid collection adjacent to right kidney. - Pt was seen by urology and prostate is "rock hard." Concern for prostate ca and likely some obstruction. - PSA elevated at 159 - Pt underwent Cystoscopy, right retrograde pyelogram, right double-J stent insertion with left double-J stent insertion on 03/28/[address] Griffith - Renal function worsened on 03/27 with Creatinine over 6 and vascath and HD initiated 03/27. Cr on 03/28/18 increased again to 7.30 - Pt developed severe agitation/delirium at the end of HD. unclear etiology. ? HD related. doubt cva. likely metabolic. exclude infection - Pt had second HD on 03/28/18 and responded better and is clinically improving - Case reviewed with Nephrology, Dr. Gilbert, (04/02/18). Creatinine continues to improve and Nephrology will likely sign off case in the next few days. - Case reviewed with Urology, Dr. Loco Griffith (04/02/18). - Difficult to prognosticate given lack of prior w/u and data. - Bone scan --> negative - MRI brain --> no acute findings - appreciate input from Neurology - appreciate input from Palliative - repeat mri brain 04/09. old cva/atrophy. no acute cva pt failed voiding trial 04/08 and bhakta replaced by Dr Griffith. plan to leave in and f/u office 10days. as of now he would refuse any surgical or medical rx of prostate ca per his . will discuss options with urology aflutter/rvr - likely stress induced - converted with cardizem gtt. Pt transitioned to PO cardizem and went back into A.Fib RVR. - Pt placed by on IV cardizem which has again be converted to PO cardizem - PO Cardizem XR 120mg daily - observe Pulmonary edema related to daina - CXR (03/28/18) --> fluid overload - Improving after HD - await repeat CXR (04/05) delirium /psychosis pt had ct brain and mri brain showing old cva and atrophy. It is felt pt has underlying cognitive deficits decompensated by acute metabolic encephalopathy and acute hospitalization. (pt memory for remote events intact..more recent events he is unable to remember.) pt improved and now worsened. family requested reevaluation by neurology. still dx is decompensated dementia with acute medical illness with psychosis repeat mri brain as family requested on 04/09..no acute cva doubt uti. await cx lowered gabapentin dosing adjust seroquel today. If above negative then pt family says they will accept the diagnosis Hx right thalamic CVA and left side weakness CAD s/p cabg x 4 Hx duodenal ulcer and diverticulosis Progress Note: Quality VTE Deep Vein Thrombosis/Pulmonary Embolism Present on Admission: No
--- NOTE | 2018-04-10 12:22 | P.PNPAL ---
Reason for Visit Reason for visit: a. To assist with evaluation and management of symptoms including: Pain, altered mental status b. To assist medical decision maker(s) with: better understanding of current medical conditions; weighing benefits/burdens of medical treatment options; making medical treatment decisions. Subjective Subjective/Interval History: Follow-up medically necessary for symptom management and family support. Patient spouse and daughter present at bedside during visit. Patient is in bed , sleepy-dozing on and off during visit. Patient currently denies pain. Patient is oriented to self only. Family reports that he has been very confused and agitated in the past day requiring the use of soft restraints. Seroquel dosage adjusted to 25 mg p.o. twice daily. Laboratory workup on 02/07/19 revealing sodium 139, potassium 4.2, BUN/ creatinine 35/1.96, random glucose 112. Patient had to have the Andrew catheter placed on 04/08/18 due to urinary retention. Follow-up MRI head on 04/09/18 showed no acute intracranial abnormality, old right thalamic/erika-thalamic lacunar infarct and atrophy and chronic white matter changes. Reviewed neurologist note, opines that patient might have emerging dementia worsened by metabolic abnormalities and a urinary tract infection. Reiterated importance of following up with neurology after discharge and patient is also made an appointment for patient [facility]. Goals remain aggressive. Family is hopeful that patient will medically improve and be discharged to [facility] for rehabilitation. Discussed that patient has to be off restraints for approximately 24 hours prior to discharge to [facility]. Received telephone call from patient's daughter Aliya at 1416 hrs. Patient' s daughter reporting that patient is getting more agitated and confused. Requested that palliative care returns to room and discuss further goals of medical treatment. Meeting with patient's spouse Karrie Imelda ([facility]) and daughter Aliya Medina(alternate healthcare surrogate). Family voicing concerns that patient does not seem to be improving and stated he is getting worse especially with agitation and confusion. Patient's daughter states that according to patient's living will this is against patient's wishes. Family asking timeline of when patient will show improvement regarding mentation. Expressed concern that most likely no one will be able to give them specific time regarding that. Readdressed CODE STATUS, discussed CPR benefits, limitations and complications. Patient spouse elected to not resuscitate/DO NOT INTUBATE. Family feels that at this time patient has received enough aggressive treatment and then no longer want to pursue any further aggressive treatment. Family verbalizing that they would not like to see patient continue suffering like this. They are now requesting to transition to comfort measures only. Introduced hospice philosophy and benefits. Family elected to transition to comfort oriented care only through hospice services. Case discussed with bedside RN and Dr. Plaza. . Family/Friend Interactions: See interval note. . Advance Directives Living Will: Completed, but not made available Health Care Surrogate: Copy in medical record Durable Power of Filling Machine Tender: Never completed Advance Directives Date on File: 04/05/18 Health Care Surrogate Name and Number: HCS: Karrie Segura [phone]/ AlT: Aliya Medina Documented care wishes:: Spouse is unsure whether patient has ever completed a living will or not. . Significant change in goals:: Patient spouse who is his healthcare surrogate is decided to forego any further aggressive treatment and transition to comfort oriented care only through hospice services. . Objective Vital Signs: Vital Signs 04/09/18 12:00 04/09/18 13:00 04/09/18 14:00 Temperature 99.3 F Pulse Rate 78 74 76 Respiratory Rate 18 Blood Pressure 136/68 Pulse Oximetry 96 04/09/18 15:00 04/09/18 16:00 04/09/18 17:00 Temperature 98.8 F Pulse Rate 75 74 74 Respiratory Rate 18 Blood Pressure 140/66 Pulse Oximetry 99 04/09/18 18:00 04/09/18 19:00 04/09/18 19:48 Temperature Pulse Rate 83 83 Respiratory Rate Blood Pressure Pulse Oximetry 98 04/09/18 20:00 04/09/18 22:00 04/09/18 23:00 Temperature 98.8 F Pulse Rate 75 82 86 Respiratory Rate 20 Blood Pressure 117/60 Pulse Oximetry 96 04/10/18 00:00 04/10/18 01:00 04/10/18 02:00 Temperature Pulse Rate 89 90 84 Respiratory Rate Blood Pressure Pulse Oximetry 04/10/18 03:00 04/10/18 04:00 04/10/18 05:00 Temperature 98.7 F Pulse Rate 80 89 88 Respiratory Rate 20 Blood Pressure 120/58 L Pulse Oximetry 98 04/10/18 06:00 04/10/18 07:00 04/10/18 08:00 Temperature 99.6 F Pulse Rate 86 97 H 97 H Respiratory Rate 18 Blood Pressure 152/77 H Pulse Oximetry 98 04/10/18 09:00 04/10/18 10:00 04/10/18 11:00 Temperature 97.9 F Pulse Rate 93 H 86 86 Respiratory Rate 16 Blood Pressure 125/56 L Pulse Oximetry 98 Intake & Output 04/09/18 04/10/18 04/10/18 18:59 06:59 18:59 Intake Total 720 / 720 Output Total 1300 / 1300 850 / 850 Balance -580 / -580 -850 / -850 Weight 49.1 kg Intake: Oral 720 / 720 Output: Urine 850 / 850 Urine Amount (Catheter) 1300 / 1300 Indwelling Urethral Catheter 1300 / 1300 Other: Date of Last Bowel Movement 04/07/18 04/07/18 Physical Exam: CONSTITUTIONAL/GENERAL: This is an elderly, thin patient, sleeping in no apparent distress. TUBES/LINES/DRAINS: PIV, soft restraints to all 4 extremities. SKIN: Ecchymosis on upper extremities. Normothermic. HEAD: Atraumatic. Normocephalic. EYES: Pupils reactive to light. Fundi not examined. ENT: Hearing grossly normal. Moist oral mucosa NECK: Trachea midline. Supple, nontender. CARDIOVASCULAR: Irregular rate and rhythm without murmurs. Peripheral pulses symmetric. RESPIRATORY/CHEST: Symmetric, unlabored respirations. Clear to auscultation. On room air GASTROINTESTINAL: Abdomen soft, non-tender, nondistended. No guarding. Positive bowel sounds. GENITOURINARY: Without palpable bladder distension. Andrew catheter in place MUSCULOSKELETAL: Extremities without edema. No mottling or clubbing. LYMPHATICS: Did not assess NEUROLOGICAL: Sleepy, oriented to self only. Following simple commands with all 4 extremities. PSYCHIATRIC: No obvious anxiety/depression. no apparent hallucinations or other psychotic thought process. . Diagnostic Tests Laboratory: Laboratory Results - last 72 hr 04/08/18 04/08/18 04/08/18 09:45 09:45 18:10 WBC 8.2 RBC 3.67 L Hgb 11.8 L Hct 35.3 L MCV 96.3 MCH 32.2 MCHC 33.4 RDW 12.3 Plt Count 261 MPV 8.2 Neut % (Auto) 75.4 H Lymph % (Auto) 13.2 [place] % (Auto) 7.2 Eos % (Auto) 3.4 Baso % (Auto) 0.8 Neut # (Auto) 6.2 Lymph # (Auto) 1.1 [place] # (Auto) 0.6 Eos # (Auto) 0.3 Baso # (Auto) 0.1 WBC Differential . Differential Comment Auto diff final Sodium 137 Potassium 4.0 Chloride 104 Carbon Dioxide 24.9 Anion Gap 8 BUN 37 H Creatinine 2.11 H Estimated GFR 31 L Random Glucose 104 Calcium 8.7 Magnesium 1.8 Urine Color Red Urine Clarity Cloudy H Urine pH 6.0 Ur Specific [place] 1.010 Urine Protein 100 H Urine Glucose (UA) Negative Urine Ketones Negative Urine Occult Blood Large H Urine Nitrate Negative Urine Bilirubin Negative Urine Urobilinogen Less than 2 Ur Leukocyte Esterase Moderate H Urine RBC Urine WBC 120 H Ur Squamous Epith Cells 1 Amorphous Sediment Moderate H Urine Mucus Few H Micro UA Comment Cath-culture ind Ur Microscopic Review Not Reportable Urine Culture Comments Cath-cult indicated 04/10/18 06:17 WBC RBC Hgb Hct MCV MCH MCHC RDW Plt Count MPV Neut % (Auto) Lymph % (Auto) [place] % (Auto) Eos % (Auto) Baso % (Auto) Neut # (Auto) Lymph # (Auto) [place] # (Auto) Eos # (Auto) Baso # (Auto) WBC Differential Differential Comment Sodium 139 Potassium 4.2 Chloride 107 Carbon Dioxide 22.4 Anion Gap 10 BUN 35 H Creatinine 1.96 H Estimated GFR 33 L Random Glucose 112 H Calcium 8.5 Magnesium Urine Color Urine Clarity Urine pH Ur Specific [place] Urine Protein Urine Glucose (UA) Urine Ketones Urine Occult Blood Urine Nitrate Urine Bilirubin Urine Urobilinogen Ur Leukocyte Esterase Urine RBC Urine WBC Ur Squamous Epith Cells Amorphous Sediment Urine Mucus Micro UA Comment Ur Microscopic Review Urine Culture Comments Result Diagrams: 04/08/18 09:45 04/10/18 06:17 Microbiology: Microbiology 04/08/18 18:10 Urine Culture - Final Catheterized Urine No growth in 48 hours Imaging: Abdomen/Pelvis CT 03/27/18 00:00 CONCLUSION: 1. New moderate amount of ascitic fluid present. 2. Nonspecific bowel gas pattern which may represent an ileus or gastroenteritis. 3. New small bilateral pleural effusions with consolidation in the lung bases right greater than left. The heart size remains enlarged. 4. The kidneys are stable in appearance with bilateral hydronephrosis again noted. Catheter Placement 03/27/18 00:00 CONCLUSION: 1. Uncomplicated line placement as above. The catheter functions well and is ready for use. Head CT 04/01/18 00:00 CONCLUSION: Atrophy, otherwise negative for an acute process. Edy Almonte MD FACR . Bone Scan Nuclear Medicine 04/02/18 00:00 CONCLUSION: 1. No evidence of bony metastatic disease. Abdomen Ultrasound 04/03/18 00:00 CONCLUSION: 1. Unremarkable examination with no ascites now identified. Chest X-Ray 04/05/18 00:00 CONCLUSION: 1. The previously noted pulmonary edema has essentially resolved. There is some mild residual interstitial changes along with some pulmonary venous congestion on today's exam. 2. There is some mild atelectasis in the right lung base. Head MRI 04/09/18 00:00 CONCLUSION: 1. No acute intracranial abnormality. 2. Old right thalamic/perithalamic lacunar infarct. 3. Atrophy and chronic white matter changes. Procedures: 03/27/18-left IJ Vas-Cath placement by interventional radiology 03/27/18-hemodialysis started 03/30/18-last day patient had hemodialysis . Assessment and Plan - Disease Oriented Problem List (1) Delirium (2) Acute kidney injury (3) Bilateral hydronephrosis (4) Elevated PSA (5) Atrial flutter with rapid ventricular response - Symptom Scale (2) Altered mental status 0-10 Scale: Unable to quantify Pertinent Non-Medical Issues: Psychosocial: Patient is originally from [place]. He moved to [place] 35 years ago. Patient's highest level is college degree. 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 Patient has been to his current for 38 years. Patient served in the [employer] in [place] war. Patient has 1 adult daughter Aliya Medina who resides in [place]. Spiritual: Patient is an Taoism-family open to bilingual kindergarten teacher visits Legal: Patient spouse unsure whether patient has ever completed advanced directives. Ethical issues impacting care: None identified at this time. . Important Contacts: Healthcare surrogate -spouse-Karrie Segura-[phone] [facility]/[phone] Alternate healthcare surrogate -daughter-Aliya Medina-[phone] . Prognosis: Mr. 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 Patient presented to the emergency room on 03/25/2018 with complaints of worsening right upper and lower quadrant abdominal pain radiating to the right flank. Hospital course complicated with agitation, persistent altered mental status, acute kidney injury requiring short-term hemodialysis( now resolved), atrial flutter with RVR. Given multiple ongoing comorbidities this patient remains at high risk for further complications, deterioration and decline. Prognosis is guarded. . Code Status: No Code DNR Plan: PLAN: Legal decision maker: Patient is partially oriented with intermittent episodes of confusion. Recommending joint decision-making with his spouse Karrie Segura who is his healthcare surrogate. Goals: Goals remain aggressive. Patient not discharged to [facility] facility due to worsening altered mentation and agitation requiring use of restraints and medication adjustments. Follow-up MRI negative for any acute intracranial process. Reiterated importance of following up with neurology after discharge and patient is also made an appointment for [facility] that [facility] since [facility] for about 3 years. Family is hopeful that patient will medically improve and be discharged to [facility]. CODE STATUS: No code DNR/DNI SYMPTOMS: * Pain: Patient is at risk for pain considering bedbound status, and surgical intervention. He has hydrocodone/acetaminophen 5/325 2 tabs p.o. every 6 hours prn and last dose was on 03/27/18 and morphine sulfate 2 mg IV push every 4 hours prn last dose was administered on 04/01/18. Patient denying pain at time of visit. Continue to monitor for pain. * Altered mental status: History of CVA. Recent onset of agitation and altered mentation after hemodialysis. Head CT negative for any acute intracranial abnormality. MRI brain/- for acute intracranial process. Patient oriented to self only, pleasantly confused to time and situation. Patient continues to have intermittent periods of agitation. Seroquel increased to 25 mg twice daily and patient has Haldol 2.5 mg IV push every 4 hours as needed for agitation. Patient might have emerging dementia which might be compounded with urinary tract infection and recent metabolic abnormalities. Family aware of the importance of following up with neurologist after medical discharge. Continue with neuro checks. Palliative care will continue to follow the patient during hospital course as condition evolves, to assist patient/decision-maker with understanding of their medical conditions, weighing benefits/burdens of treatment options, for clarification of goals of treatment. Additionally will assist with any symptoms of palliative concern Attestation Attestation: To help prompt me to consider important information that might be impacting today's encounter and assessment, information from prior notes written by myself or my colleagues may have been "brought forward" into today's note. My signature on this note, however, is an attestation that I personally performed the exam, history, and/or decision-making noted today, and, unless otherwise indicated, the interactions with patient, family, and staff as well as the review of records all occurred today. I also attest that the listed assessment and stated plan reflect my best clinical judgment today based on the combination of historical information, prior notes, and today's exam/ interactions. When time spent is documented, it refers only to time spent today by the signer, or if indicated, combined time spent today by collaborating physician/nurse practitioner.
[2018-04-10] MEDS: Sodium Chloride 0.9% 2 ML Flush BID IV.FLUSH SCH ×2 (12:25→20:03)
[2018-04-10] MEDS: QUEtiapine 25 MG Tablet PO SCH ×2 (12:31→20:03)
[2018-04-10] MEDS ORDERED: Temazepam 15 MG Capsule PO ONE (14:07)
[2018-04-10] MEDS ORDERED: Temazepam 15 MG Capsule PO PRN (21:00)
[2018-04-10 23:15] VITALS: RESP 16
[2018-04-11] MEDS: Belladonna Alkaloid/Opium 60 MG Supp RECTAL SCH ×3 (00:01→12:00)
[2018-04-11] MEDS: Haloperidol Inj 5 MG/ML Ampul IV.PUSH PRN ×2 (04:59→12:19)
[2018-04-11] MEDS: QUEtiapine 25 MG Tablet PO SCH (09:08)
[2018-04-11] MEDS: dilTIAZem CD 120 MG Capsule PO SCH (09:08)
[2018-04-11] MEDS: Gabapentin 100 MG Capsule PO SCH (09:08)
[2018-04-11] MEDS: Sodium Chloride 0.9% 2 ML Flush BID IV.FLUSH SCH (09:10)
--- NOTE | 2018-04-11 09:21 | P.PNIM ---
Subjective Interval history: pt has been agitated and fighting with staff. he has been peristently confused. Physical Exam Vital signs: Last Vital Signs Temp 98.8 F 04/11/18 04:00 Pulse 96 H 04/11/18 06:00 Resp 16 04/11/18 04:00 BP 129/65 04/11/18 04:00 Pulse Ox 98 04/11/18 04:00 Narrative: calm currently but minimal verbalization confused heart reg lung cta abd s/nt ext no edema bhakta Results Labs CBC & Chem 7: 04/08/18 09:45 04/10/18 06:17 Assessment and Plan Plan DAINA with bilateral hydro and severe right abdomen and flank pain. - Concern for perinephric stranding and fluid collection adjacent to right kidney. - Pt was seen by urology and prostate is "rock hard." Concern for prostate ca and likely some obstruction. - PSA elevated at 159 - Pt underwent Cystoscopy, right retrograde pyelogram, right double-J stent insertion with left double-J stent insertion on 03/28/[address] Griffith - Renal function worsened on 03/27 with Creatinine over 6 and vascath and HD initiated 03/27. Cr on 03/28/18 increased again to 7.30 - Pt developed severe agitation/delirium at the end of HD. unclear etiology. ? HD related. doubt cva. likely metabolic. exclude infection - Pt had second HD on 03/28/18 and responded better and is clinically improving - Case reviewed with Nephrology, Dr. Gilbert, (04/02/18). Creatinine continues to improve and Nephrology will likely sign off case in the next few days. - Case reviewed with Urology, Dr. Loco Griffith (04/02/18). - Difficult to prognosticate given lack of prior w/u and data. - Bone scan --> negative - MRI brain --> no acute findings - appreciate input from Neurology - appreciate input from Palliative - repeat mri brain 04/09. old cva/atrophy. no acute cva pt failed voiding trial 04/08 and bhakta replaced by Dr Griffith. plan to leave in and f/u office 10days. as of now he would refuse any surgical or medical rx of prostate ca per his . aflutter/rvr - likely stress induced - converted with cardizem gtt. Pt transitioned to PO cardizem and went back into A.Fib RVR. - Pt placed by on IV cardizem which has again be converted to PO cardizem - PO Cardizem XR 120mg daily - observe Pulmonary edema related to daina - CXR (03/28/18) --> fluid overload - Improving after HD - await repeat CXR (04/05) delirium /psychosis pt had ct brain and mri brain showing old cva and atrophy. It is felt pt has underlying cognitive deficits decompensated by acute metabolic encephalopathy and acute hospitalization. (pt memory for remote events intact..more recent events he is unable to remember.) pt improved and now worsened. family requested reevaluation by neurology. still dx is decompensated dementia with acute medical illness with psychosis repeat mri brain as family requested on 04/09..no acute cva doubt uti. cx negative lowered gabapentin dosing adjusted seroquel Pt still believed to have decompensated dementia and psychosis. he is on antipsychotic meds. His family met with palliative care and would not want treatment of prostate ca. They have requested a meeting with hospice care today. 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
[2018-04-11 09:38] VITALS: O2SAT 97
[2018-04-11 12:45] VITALS: BP 142/54; PULSE 80; TEMP 98.6
== END 2018-04-11 13:52 | disposition hospice, inpatient (51) | DRG 659 ==
LOC: NEPC 19:20 → NEDA 23:16 → N03 03-26 01:00 → N06 03-28 15:35 → HCIS 03-29 18:19
PROVIDERS: ADMIT Hospitalist; ATTEND Hospitalist
DX: N13.1 Hydronephrosis with ureteral stricture, not elsewhere classified; Z53.29 Procedure and treatment not carried out because of patient's decision for other reasons; J98.11 Atelectasis; Z95.1 Presence of aortocoronary bypass graft; I69.354 Hemiplegia and hemiparesis following cerebral infarction affecting left non-dominant side; I25.10 Atherosclerotic heart disease of native coronary artery without angina pectoris; F02.80 Dementia in other diseases classified elsewhere, unspecified severity, without behavioral disturbance, psychotic disturbance, mood disturbance, and anxiety; Z79.899 Other long term (current) drug therapy; G93.41 Metabolic encephalopathy; C61 Malignant neoplasm of prostate; I10 Essential (primary) hypertension; Z88.8 Allergy status to other drugs, medicaments and biological substances; I48.91 Unspecified atrial fibrillation; E87.70 Fluid overload, unspecified; Z99.2 Dependence on renal dialysis; R32 Unspecified urinary incontinence; G93.49 Other encephalopathy; K57.90 Diverticulosis of intestine, part unspecified, without perforation or abscess without bleeding; G30.9 Alzheimer's disease, unspecified; N17.9 Acute kidney failure, unspecified; Z66 Do not resuscitate; Z51.5 Encounter for palliative care; I25.2 Old myocardial infarction; Z78.1 Physical restraint status; R97.20 Elevated prostate specific antigen [PSA]; Z87.11 Personal history of peptic ulcer disease; Z91.018 Allergy to other foods; I48.92 Unspecified atrial flutter; E87.5 Hyperkalemia; F17.210 Nicotine dependence, cigarettes, uncomplicated; Z79.82 Long term (current) use of aspirin
CPT/HCPCS: 36556; 70450; 70551; 71010; 71045; 74176; 74420; 75998; 76705; 76937; 77001; 78306; 80048; 80053; 80069; 80074; 81001; 83605; 83690; 83735; 84153; 84154; 85025; 85610; 85730; 87086; 90761; 90774; 90775; 90784; 90935; 93005; 94640; 94664; 94665; 95819; 96361; 96374; 96375; 97110; 97162; 97530; 99285; A9503; C1752; C1769; C2617; C8952; J0690; J0696; J1100; J1170; J1580; J1630; J1644; J2060; J2270; J2405; J2704; J3010; J7030